=== PATIENT | male | born 1960 | race Caucasian/White ===

== ENCOUNTER → 2018-06-02 12:10 | Outpatient (CLI) | payer OTHER, SELFPAY ==
--- NOTE | 2018-06-02 | DI.US.S_ITS ---
PROCEDURE: US PERIPH VENOUS LOW EXTREM LT INDICATIONS: PAIN REDNESS AND SWELLING LEFT LEG TECHNIQUE: Real-time imaging, as well as color and pulse Doppler interrogation, were performed of the lower extremity deep veins from the inguinal ligament to the popliteal fossa. COMPARISON: None. FINDINGS: The deep veins are normally compressible, and free of intraluminal thrombus. Color and pulse Doppler demonstrate normal phasic intraluminal flow. There is normal augmentation response to distal compression maneuver. IMPRESSION: No evidence of DVT in visualized left lower extremity veins. Dictated by: Lizandro Pollard M.D. on 06/02/2018 at 14:05 Approved by: Lizandro Pollard M.D. on 06/02/2018 at 14:06
== END ==
PROVIDERS: Family Provider Family Medicine; PCP Family Medicine; Visit Provider Family Medicine
DX: M79.605 Pain in left leg (principal); M79.89 Other specified soft tissue disorders
CPT/HCPCS: 93971

== ENCOUNTER → 2018-11-18 11:49 | Outpatient (CLI) | payer OTHER, SELFPAY ==
--- NOTE | 2018-11-18 | DI.US.S_ITS ---
PROCEDURE: US ABDOMEN LIMITED INDICATIONS: HERNIA REOCCURENCE TECHNIQUE: Real-time focused scanning was performed of the abdomen, with image documentation. COMPARISON: [facility], 12/20/2015. FINDINGS: There is shadowing in the area of the left inguinal canal, which may be postsurgical change. No definitive recurrent hernia is identified within without Valsalva. IMPRESSION: No definitive evidence for recurrent hernia. There is shadowing in the area of the left inguinal canal, most likely secondary to postsurgical change. If clinical symptoms persist or clinical suspicion for pathology is high, CT is suggested for further evaluation. Dictated by: Rain Owen M.D. on 11/18/2018 at 16:08 Approved by: Rain Owen M.D. on 11/18/2018 at 16:09
== END ==
PROVIDERS: PCP Family Medicine; Visit Provider Family Medicine
DX: K46.9 Unspecified abdominal hernia without obstruction or gangrene (principal)
CPT/HCPCS: 76705

== ENCOUNTER 2019-01-26 11:46 | Inpatient (IN) | payer OTHER, SELFPAY ==
[2019-01-26] VITALS (12 sets, daily range): BP systolic 93–152; BP diastolic 63–90; PULSE 87–130; RESP 20–30; TEMP 37–37.7; O2SAT 95–100; BMI 31.1
--- NOTE | 2019-01-26 12:06 | DI.RAD.S_ITS ---
PROCEDURE: XR CHEST 1V INDICATIONS: suspected sepsis TECHNIQUE: One view of the chest was acquired. COMPARISON: [facility], , CHEST 2 VIEW, 04/13/2013, 15:44. FINDINGS: Surgical changes and devices: None. Lungs and pleura: Lungs are clear. No pleural effusions or pneumothorax. Mediastinum: Mediastinal contours appear normal. Heart size is normal. Bones and chest wall: No suspicious bony lesions. Overlying soft tissues appear unremarkable. IMPRESSION: No acute cardiopulmonary findings. Dictated by: Renetta Mancuso M.D. on 01/26/2019 at 12:54 Approved by: Renetta Mancuso M.D. on 01/26/2019 at 12:54
--- NOTE | 2019-01-26 12:06 | DI.US.S_ITS ---
PROCEDURE: US PERIP VENOUS LOW EXTREM LT INDICATIONS: SWELLING LT LOWER EXTREMITY TECHNIQUE: Real-time imaging, as well as color and pulse Doppler interrogation, were performed of the lower extremity deep veins from the inguinal ligament to the popliteal fossa. COMPARISON: [facility], , [facility] VENOUS LOW EXTREM LT, 06/02/2018, 13:13. FINDINGS: The common femoral, femoral and popliteal veins are normally compressible, and free of intraluminal thrombus. Color and pulse Doppler demonstrate normal phasic intraluminal flow. There is normal augmentation response to distal compression maneuver. There are multiple left inguinal lymph nodes, one of which demonstrates a cortical thickness of 5 mm diameter. IMPRESSION: 1. No deep vein thrombosis of the left lower extremity. 2. Mild left inguinal adenopathy. Clinical correlation recommended. Dictated by: Renetta Mancuso M.D. on 01/26/2019 at 13:01 Approved by: Renetta Mancuso M.D. on 01/26/2019 at 13:02
[2019-01-26] MEDS: SODIUM CHLORIDE 0.9% 1,000 ML 1000 ML IV (12:16)
[2019-01-26 12:31] LABS: INR 1.1 (0.9-1.3); Prothrombin Time 12.3 SECONDS (10.1-12.7)
[2019-01-26 12:33] LABS: Add Manual Diff / Slide Review NO; Basophils Absolute Auto 100 /uL (0-100); Basophils Percent Auto 0.4 % (0-2); Eosinophils Absolute Auto 0 /uL (0-450); Eosinophils Percent Auto 0.3 % (2-4); Hematocrit 39.3 % (41-53); Hemoglobin 13.2 g/dL (13.5-17.5); Lymphocytes Absolute Auto 1600 /uL (1100-4500); Lymphocytes Percent Auto 9.6 % (25-40); Mean Corpuscular HGB Conc 33.7 % (30-36); Monocytes Absolute Auto 2100 /uL (0-900); Monocytes Percent Auto 12.2 % (3-14); Neutrophils Absolute Auto 13100 /uL (1500-7000); Neutrophils Percent Auto 77.5 % (50-75); Platelet Count 247 X10^3/uL (150-400); Red Blood Cell Count 4.14 X10^6/uL (4.5-5.9); White Blood Cell Count 16.9 X10^3/uL (4.5-11.0)
[2019-01-26 12:34] LABS: PTT Partial Thromboplastin Tim 27 SECONDS (26.4-36.2)
[2019-01-26 12:36] LABS: Alanine Aminotransferase 165 IU/L (21-72); Albumin 3.9 g/dL (3.5-5.0); Alkaline Phosphatase 190 U/L (38-126); Aspartate Aminotransferase 291 IU/L (17-59); BUN Creatinine Ratio 34.7 (6-22); Bilirubin Total 0.7 mg/dL (0.2-1.3); Blood Urea Nitrogen 59 mg/dL (9-20); Calcium 9.9 mg/dL (8.4-10.2); Carbon Dioxide 21 mmol/L (22-32); Chloride 100 mmol/L (98-107); Estimated Glomerular Filt Rate 41.3 mL/min (>60); Globulin 3.9 g/dL (1.7-4.1); Glucose 134 mg/dL (80-110); HEMOLYSIS 42 (0-50); Lipase 245 U/L (23-300); Potassium 3.7 mmol/L (3.4-5.1); Sodium 137 mmol/L (137-145); Total Protein 7.8 g/dL (6.3-8.2)
[2019-01-26 12:37] LABS: Lactate (Lactic Acid) 1.9 mmol/L (0.7-2.1)
[2019-01-26 12:45] LABS: Creatine Kinase 32 U/L (55-170)
[2019-01-26 12:58] LABS: Troponin I 0.013 ng/mL (0.01-0.034)
[2019-01-26 13:01] LABS: Procalcitonin 4.81 ng/mL (<0.5)
--- NOTE | 2019-01-26 13:24 | ED.DIZZY ---
HPI - Dizziness General Chief Complaint: Dizziness Stated Complaint: Leg Swollen Lf - Dr. Macias send over Time Seen by Provider: 01/26/19 12:13 Source: patient Mode of arrival: ambulatory Limitations: no limitations History of Present Illness HPI Narrative: Patient is a 58-year-old male sent over by his primary doctor's office for evaluation of redness and swelling to his left lower extremity. Patient states this has been going on for the past several days. He states that it was a fairly sudden onset) (within several hours) of redness to his left lower extremity. States that this happened about 4 days ago. No trauma. He states that he has had a chronic area of dry skin to the inside of his left foot. Has not tried anything for symptoms prior to arrival. Initial triage stated that the patient was having some shortness of breath but upon further evaluation patient states that he just feels fatigued and that is why he is becoming short of breath. No chest pain. Related Data Home Medications Medication Instructions Recorded Confirmed Vitamins 1 dose PO DAILY 01/26/19 01/26/19 losartan 50 mg PO DAILY 01/26/19 01/26/19 Allergies Allergy/AdvReac Type Severity Reaction Status Date / Time Penicillins [PENICILLINS] Allergy Unknown uncertain Verified 01/26/19 12:16 Review of Systems Constitutional Reports chills, Reports fatigue, Denies fever(s) and Reports weakness ENT Ears, Nose, Mouth, and Throat: Denies disequilibrium Cardiovascular Denies chest pain, Denies dyspnea and Reports dyspnea on exertion (Secondary to fatigue) Respiratory Denies dyspnea and Reports dyspnea on exertion (Secondary to fatigue) Gastrointestinal Gastrointestinal: Denies abdominal pain, Denies nausea and Denies vomiting Musculoskeletal Reports myalgias (Left lower extremity), Denies arthralgias and Denies tingling Integumentary/Breasts Comments: Redness and swelling to his left lower extremity Neurologic Denies sensory deficit, Denies tingling, Denies disequilibrium and Reports weakness Endocrine Reports fatigue Hematologic/Lymphatic Denies easy bleeding and Denies easy bruising [facility] Medical History Hypertension (Acute) Social History household members: spouse Smoking Status: Former smoker Social History household members: spouse Smoking Status: Former smoker Exam Initial Vital Signs Initial Vital Signs: Vital Signs Temperature 98.6 F 01/26/19 11:50 Pulse Rate 122 H 01/26/19 11:50 Respiratory Rate 30 H 01/26/19 11:50 Blood Pressure 143/90 H 01/26/19 11:50 Pulse Oximetry 99 01/26/19 11:50 Const General: cooperative, well groomed and No acute distress Orientation: alert, awake and oriented x3 HENMT Head: normal to inspection and normocephalic Resp Effort & Inspection: normal respiratory effort Auscultation: clear to auscultation bilaterally Cardio Rate: tachycardic Rhythm: regular rhythm Pulses: radial pulses present and dorsalis pedis present bilaterally GI Inspection: non-distended Palpation: soft Neuro Cognition: normal cognition Speech: speech normal Gait: normal gait Sensory Exam: no sensory deficits noted Extrem Other: Patient with circumferential swelling to the left lower extremity from his knee to his toes. Has an area of redness on the inside of his left foot extending up to the anterior medial portion of his left lower extremity and then streaking extending up the medial aspect of his left thigh above the knee. There are no blisters in this area. Potentially some drainage. Minimal crusting. Is warm to the touch. Psych Appearance: grossly normal and well kempt Scores GCS Douglas coma scale eye opening: Spontaneous Douglas coma scale verbal response: Orientated Gertrude coma scale motor response: Obey commands Douglas coma scale total score: 15 Course Orders Ordered: ED Orders 01/26/19 12:00 Complete Blood Count AUTO DIFF Stat Comprehensive Metabolic Panel Stat Lactate (Lactic Acid) Stat Lipase Stat Partial Thromboplastin Time Stat Procalcitonin Stat Prothrombin Time INR Stat Troponin & CK Cardiac Panel Stat 01/26/19 12:06 periph venous low extrem lt Stat XR chest 1V Stat EKG-12 Lead Stat 01/26/19 12:26 Blood Culture Stat 01/26/19 14:23 Urine Culture Stat Urine Microscopic Stat 01/26/19 14:46 XR tibia fibula LT 2V Stat 01/26/19 14:55 XR femur LT min 2V Stat Discontinued Medications Sodium Chloride (Normal Saline 0.9%) 1,000 mls @ 1,000 mls/hr IV BOLUS ONE Stop: 01/26/19 13:14 Last Infusion: 01/26/19 14:16 Dose: 0 mls/hr Infusion: 01/26/19 14:15 Dose: 1,000 mls/hr Infusion: 01/26/19 12:54 Dose: 0 mls/hr Admin: 01/26/19 12:16 Dose: 1,000 mls/hr Vancomycin HCl 2,000 mg/ (Sodium Chloride) 500 mls @ 250 mls/hr IV NOW ONE Stop: 01/26/19 13:39 Last Infusion: 01/26/19 16:39 Dose: 250 mls/hr Admin: 01/26/19 14:06 Dose: 250 mls/hr Metronidazole (Flagyl) 500 mg in 100 mls @ 100 mls/hr IV NOW ONE Stop: 01/26/19 15:15 Last Admin: 01/26/19 17:07 Dose: 100 mls/hr Vital Signs - 8 hr 01/26/19 11:50 01/26/19 12:00 01/26/19 12:07 Temperature 98.6 F Pulse Rate 122 H 123 H 122 H Respiratory Rate 30 H 24 28 H Blood Pressure 143/90 H Blood Pressure [Left Arm] 115/73 115/79 Pulse Oximetry 99 99 99 01/26/19 12:18 01/26/19 12:40 01/26/19 12:52 Temperature Pulse Rate 130 H 103 H 103 H Respiratory Rate 28 H 24 Blood Pressure Blood Pressure [Left Arm] 123/78 108/66 93/69 Pulse Oximetry 98 98 01/26/19 13:00 01/26/19 14:00 Temperature Pulse Rate 98 H 87 Respiratory Rate 22 20 Blood Pressure Blood Pressure [Left Arm] 121/73 118/77 Pulse Oximetry 97 99 MDM - Dizziness Lab Data Attestation: I reviewed the patient's lab results. Result diagrams: 01/26/19 12:00 01/26/19 12:00 Lab Results 01/26/19 01/26/19 01/26/19 Range/Units 12:00 12:00 12:00 WBC 16.9 H (4.5-11.0) X10^3/uL RBC 4.14 L (4.5-5.9) X10^6/uL Hgb 13.2 L (13.5-17.5) g/dL Hct 39.3 L (41-53) % MCV 95.0 (80-100) fL MCH 32.0 (26-34) PG MCHC 33.7 (30-36) % RDW 14.0 (11.6-14.8) % Plt Count 247 (150-400) X10^3/uL Neut % (Auto) 77.5 H (50-75) % Lymph % (Auto) 9.6 L (25-40) % [facility] % (Auto) 12.2 (3-14) % Eos % (Auto) 0.3 L (2-4) % Baso % (Auto) 0.4 (0-2) % Neut # (Auto) 14185 H (9543-9739) /uL Lymph # (Auto) 1600 (9714-9707) /uL [facility] # (Auto) 2100 H (0-900) /uL Eos # (Auto) 0 (0-450) /uL Baso # (Auto) 100 (0-100) /uL PT 12.3 (10.1-12.7) SECONDS INR 1.1 (0.9-1.3) APTT 27 (26.4-36.2) SECONDS Sodium (137-145) mmol/L Potassium (3.4-5.1) mmol/L Chloride (98-107) mmol/L Carbon Dioxide (22-32) mmol/L BUN (9-20) mg/dL Creatinine (0.66-1.25) mg/dL Estimated GFR (>60) mL/min BUN/Creatinine Ratio (6-22) Glucose (80-110) mg/dL Lactate (0.7-2.1) mmol/L Calcium (8.4-10.2) mg/dL Total Bilirubin (0.2-1.3) mg/dL AST (17-59) IU/L ALT (21-72) IU/L Alkaline Phosphatase (38-126) U/L Total Creatine Kinase (55-170) U/L CK-MB (CK-2) CK-MB (CK-2) Rel Index Troponin I (0.01-0.034) ng/mL Total Protein (6.3-8.2) g/dL Albumin (3.5-5.0) g/dL Globulin (1.7-4.1) g/dL Albumin/Globulin Ratio (1.0-2.8) Lipase (23-300) U/L Procalcitonin 4.81 H (<0.5) ng/mL Urine RBC (0-5/HPF) Urine WBC (0-5/HPF) Ur Squamous Epith Cells (0-5/HPF) Urine Bacteria (None) Hyaline Casts (None) Granular Casts (None) Ur Culture Indicated? 01/26/19 01/26/19 01/26/19 Range/Units 12:00 12:00 12:00 WBC (4.5-11.0) X10^3/uL RBC (4.5-5.9) X10^6/uL Hgb (13.5-17.5) g/dL Hct (41-53) % MCV (80-100) fL MCH (26-34) PG MCHC (30-36) % RDW (11.6-14.8) % Plt Count (150-400) X10^3/uL Neut % (Auto) (50-75) % Lymph % (Auto) (25-40) % [facility] % (Auto) (3-14) % Eos % (Auto) (2-4) % Baso % (Auto) (0-2) % Neut # (Auto) (4876-2456) /uL Lymph # (Auto) (3042-6474) /uL [facility] # (Auto) (0-900) /uL Eos # (Auto) (0-450) /uL Baso # (Auto) (0-100) /uL PT (10.1-12.7) SECONDS INR (0.9-1.3) APTT (26.4-36.2) SECONDS Sodium 137 (137-145) mmol/L Potassium 3.7 (3.4-5.1) mmol/L Chloride 100 (98-107) mmol/L Carbon Dioxide 21 L (22-32) mmol/L BUN 59 H (9-20) mg/dL Creatinine 1.70 H (0.66-1.25) mg/dL Estimated GFR 41.3 L (>60) mL/min BUN/Creatinine Ratio 34.7 H (6-22) Glucose 134 H (80-110) mg/dL Lactate 1.9 (0.7-2.1) mmol/L Calcium 9.9 (8.4-10.2) mg/dL Total Bilirubin 0.7 (0.2-1.3) mg/dL AST 291 H (17-59) IU/L ALT 165 H (21-72) IU/L Alkaline Phosphatase 190 H (38-126) U/L Total Creatine Kinase 32 L (55-170) U/L CK-MB (CK-2) TNP CK-MB (CK-2) Rel Index TNP Troponin I 0.013 (0.01-0.034) ng/mL Total Protein 7.8 (6.3-8.2) g/dL Albumin 3.9 (3.5-5.0) g/dL Globulin 3.9 (1.7-4.1) g/dL Albumin/Globulin Ratio 1.0 (1.0-2.8) Lipase 245 (23-300) U/L Procalcitonin (<0.5) ng/mL Urine RBC (0-5/HPF) Urine WBC (0-5/HPF) Ur Squamous Epith Cells (0-5/HPF) Urine Bacteria (None) Hyaline Casts (None) Granular Casts (None) Ur Culture Indicated? 01/26/19 Range/Units 14:23 WBC (4.5-11.0) X10^3/uL RBC (4.5-5.9) X10^6/uL Hgb (13.5-17.5) g/dL Hct (41-53) % MCV (80-100) fL MCH (26-34) PG MCHC (30-36) % RDW (11.6-14.8) % Plt Count (150-400) X10^3/uL Neut % (Auto) (50-75) % Lymph % (Auto) (25-40) % [facility] % (Auto) (3-14) % Eos % (Auto) (2-4) % Baso % (Auto) (0-2) % Neut # (Auto) (0608-3706) /uL Lymph # (Auto) (8126-6439) /uL [facility] # (Auto) (0-900) /uL Eos # (Auto) (0-450) /uL Baso # (Auto) (0-100) /uL PT (10.1-12.7) SECONDS INR (0.9-1.3) APTT (26.4-36.2) SECONDS Sodium (137-145) mmol/L Potassium (3.4-5.1) mmol/L Chloride (98-107) mmol/L Carbon Dioxide (22-32) mmol/L BUN (9-20) mg/dL Creatinine (0.66-1.25) mg/dL Estimated GFR (>60) mL/min BUN/Creatinine Ratio (6-22) Glucose (80-110) mg/dL Lactate (0.7-2.1) mmol/L Calcium (8.4-10.2) mg/dL Total Bilirubin (0.2-1.3) mg/dL AST (17-59) IU/L ALT (21-72) IU/L Alkaline Phosphatase (38-126) U/L Total Creatine Kinase (55-170) U/L CK-MB (CK-2) CK-MB (CK-2) Rel Index Troponin I (0.01-0.034) ng/mL Total Protein (6.3-8.2) g/dL Albumin (3.5-5.0) g/dL Globulin (1.7-4.1) g/dL Albumin/Globulin Ratio (1.0-2.8) Lipase (23-300) U/L Procalcitonin (<0.5) ng/mL Urine RBC None seen (0-5/HPF) Urine WBC 1-5/hpf (0-5/HPF) Ur Squamous Epith Cells 1-5 /hpf (0-5/HPF) Urine Bacteria Many (>30) H (None) Hyaline Casts 5-10/lpf (None) Granular Casts 5-10/lpf (None) Ur Culture Indicated? Specimen cultured Urine Dip Bedside Urine Glucose Negative Bedside Urine Bilirubin ++ 2 Bedside Urine Ketone +/- 5 Urine Specific [place] 1.030 Bedside Urine Occult Blood - Negative Bedside Urine pH 5.0 Bedside Urine Protein +/- 15 Bedside Urine Urobilinogen 1+ 2mg Bedside Urine Nitrite + Positive Bedside Urine Leukocytes + 70 Esterase Imaging Data X-ray tib-fib: Radiologist's impression: [address] [address] XRay Report Signed Patient: Catrachito Peck WMR#: [id number] : 8Acct:[id number] Age/Sex: 58 / MDate of Service: 01/26/19 Loc: ED Accession Number: [id number] Procedure: XR tibia fibula LT 2V Ordering Provider: Cortez Ramírez D.O. PROCEDURE: XR TIBIA FIBULA RT 2V INDICATIONS: Cellulitis rule out free air TECHNIQUE: 2 views of the tibia and fibula were acquired. COMPARISON: None. FINDINGS: Bones: No fractures or dislocations. No suspicious bony lesions. Soft tissues: No suspicious soft tissue calcifications or masses. A small, benign-appearing soft tissue calcification is present within the medial aspect of the calf. IMPRESSION: No gas visualized within the soft tissues. No suspicious bony abnormalities. Dictated by: Renetta Mancuso M.D. on 01/26/2019 at 15:28 Approved by: Renetta Mancuso M.D. on 01/26/2019 at 15:29 X-ray femur: Radiologist's impression: [address] [address] XRay Report Signed Patient: Catrachito Peck WMR#: [id number] : 1960cct:[id number] Age/Sex: 58 / MDate of Service: 01/26/19 Loc: ED Accession Number: [id number] Procedure: XR femur LT min 2V Ordering Provider: Cortez Ramírez D.O. PROCEDURE: XR FEMUR LT MIN 2V INDICATIONS: Cellulitis eval for air TECHNIQUE: 2 views of the femur were acquired. COMPARISON: None. FINDINGS: Bones: No fractures or dislocations. No suspicious bony lesions. Soft tissues: No suspicious soft tissue calcifications or masses. Multiple surgical clips are projected over the inferior pelvis. IMPRESSION: No radiographic findings to suggest gas within the soft tissues. No underlying bony abnormalities. Dictated by: Renetta Mancuso M.D. on 01/26/2019 at 15:27 Approved by: Renetta Mancuso M.D. on 01/26/2019 at 15:28 Venous US: Radiologist's impression: [address] [address] Ultrasound Report Signed Patient: Catrachito Peck WMR#: [id number] : 8Acct:[id number] Age/Sex: 58 / MDate of Service: 01/26/19 Loc: ED Accession Number: [id number] Procedure: US periph venous low extrem lt Ordering Provider: Cortez Ramírez D.O. PROCEDURE: PERIP VENOUS LOW EXTREM LT INDICATIONS: SWELLING LT LOWER EXTREMITY TECHNIQUE: Real-time imaging, as well as color and pulse Doppler interrogation, were performed of the lower extremity deep veins from the inguinal ligament to the popliteal fossa. COMPARISON: [facility], PERIP VENOUS LOW EXTREM LT, 06/02/2018, 13:13. FINDINGS: The common femoral, femoral and popliteal veins are normally compressible, and free of intraluminal thrombus. Color and pulse Doppler demonstrate normal phasic intraluminal flow. There is normal augmentation response to distal compression maneuver. There are multiple left inguinal lymph nodes, one of which demonstrates a cortical thickness of 5 mm diameter. IMPRESSION: 1. No deep vein thrombosis of the left lower extremity. 2. Mild left inguinal adenopathy. Clinical correlation recommended. Dictated by: Renetta Mancuso M.D. on 01/26/2019 at 13:01 Approved by: Renetta Mancuso M.D. on 01/26/2019 at 13:02 ECG Data Attestation: I personally reviewed and interpreted this ECG as follows: Prior ECG tracings: not available for review Interpretation: Sinus tachycardia Ventricular rate of 121 Normal axis Normal QRS Normal QTC Nonspecific ST T wave changes MDM Narrative Medical decision making narrative: Patient is neurovascularly intact. He does have redness to his left lower extremity an elevated white blood cell count and tachycardic. This is concerning for an infection. He was never hypotensive. His heart rate did improve with just a small amount of fluid. Will hold on giving the 30 cc/kilogram of fluid. He was given antibiotics. The left lower extremity ultrasound was negative for a blood clot. I have low suspicion for pulmonary embolism given my history and physical exam. I did discuss the case with the hospitalist who recommended surgery get involved. I discussed the case with the on-call surgeon who evaluated the patient here in the emergency department. The x-rays were done to evaluate for free air for possible necrotizing fasciitis. There is no indication for this. No indication for compartment syndrome. Will continue with the admission. Discussed the admission with the patient and his who both expressed understanding and agreement. Discharge Plan Departure Patient Disposition: Admitted As Inpatient Clinical Impression: Cellulitis Qualifiers: Site of cellulitis: extremity Site of cellulitis of extremity: lower extremity Laterality: left Qualified Code(s): L03.116 - Cellulitis of left lower limb Discharge Date/Time: 01/26/19 16:41 Interventions: ED Discharge Assessment Last Done: 01/26/19 16:39 Admit Date/Time: 01/26/19 16:21 Admit Provider: Carmenza Phillips
--- NOTE | 2019-01-26 13:43 | PC.NURSE ---
Patient requested ice water so inquired from and he said ok to give some to patient
[2019-01-26] MEDS: VANCOMYCIN 2,000 MG in SODIUM CHLORIDE 0.9% 500 ML 250 ML IV (14:06)
--- NOTE | 2019-01-26 14:46 | DI.RAD.S_ITS ---
PROCEDURE: XR TIBIA FIBULA RT 2V INDICATIONS: Cellulitis rule out free air TECHNIQUE: 2 views of the tibia and fibula were acquired. COMPARISON: None. FINDINGS: Bones: No fractures or dislocations. No suspicious bony lesions. Soft tissues: No suspicious soft tissue calcifications or masses. A small, benign-appearing soft tissue calcification is present within the medial aspect of the calf. IMPRESSION: No gas visualized within the soft tissues. No suspicious bony abnormalities. Dictated by: Renetta Mancuso M.D. on 01/26/2019 at 15:28 Approved by: Renetta Mancuso M.D. on 01/26/2019 at 15:29
--- NOTE | 2019-01-26 14:55 | DI.RAD.S_ITS ---
PROCEDURE: XR FEMUR LT MIN 2V INDICATIONS: Cellulitis eval for air TECHNIQUE: 2 views of the femur were acquired. COMPARISON: None. FINDINGS: Bones: No fractures or dislocations. No suspicious bony lesions. Soft tissues: No suspicious soft tissue calcifications or masses. Multiple surgical clips are projected over the inferior pelvis. IMPRESSION: No radiographic findings to suggest gas within the soft tissues. No underlying bony abnormalities. Dictated by: Renetta Mancuso M.D. on 01/26/2019 at 15:27 Approved by: Renetta Mancuso M.D. on 01/26/2019 at 15:28
[2019-01-26 17:03] LABS: RBC Urine None Seen (0-5/HPF)
[2019-01-26] MEDS: metroNIDAZOLE 500 MG/100 ML PIGGYBACK 100 MG IV ×2 (17:07→22:30)
[2019-01-26 17:33] LABS: Bacteria Urine Many (>30); Granular Casts Urine 5-10/LPF; Hyaline Casts Urine 5-10/LPF; Squamous Epithelial Cell Urine 1-5 /HPF (0-5/HPF); WBC Urine 1-5/HPF (0-5/HPF)
[2019-01-26 17:34] LABS: Culture Indicated Urine Specimen Cultured
[2019-01-26] MEDS: ACETAMINOPHEN 325 MG TABLET 650 MG PO (22:00)
[2019-01-27] VITALS (11 sets, daily range): BP systolic 119–144; BP diastolic 66–85; PULSE 103–111; RESP 16–22; TEMP 37.1–37.5; O2SAT 95–100
--- NOTE | 2019-01-27 02:23 | P.HP_ITS ---
History of Present Illness Date Patient Seen: 01/27/19 Time Patient Seen: 02:20 Chief complaint: Leg Swollen Lf - Dr. Macias send over Narrative: The patient is a 58-year-old male w/ PMHx of HTN, prostate cancer, obesity and prior RLE foot ulcer. Presented to the ED on 01/26/19 per recommendation of his PCP, Dori Macias, out of concern for cellulitis. Patient reports sudden onset of left lower extremity redness, edema, erythema, calor, induration, and tenderness. There is drainage. Symptoms initially noted on evening (01/22/2019), progressively worsening over the next 3 days. Associated symptoms include chills and generalized malaise. Patient reports history of left lower extremity ulcer in the medial aspect of left heel one year ago. It has taken for the ulcer 3-4 months to heal, treated with topical antibiotics. Since the ulcer has healed patient has had some degree of inflammation and occasionally purulence, but no prior history of cellulitis or recurrence of the ulcer. Denies trauma or any other activity that may have caused an injury or break to the skin. Prior LLE ulcer. Patient works at a [employer]. Endorses exposure to stool pellets. Denies overt penetrating trauma or retained foreign body. Denies skin conditions such as eczema. No known gout or arthritis flare. No history of prior strep, staph, or other soft tissue infections. No known diabetes or prior radiation therapy. No reported insect bites. Patient History Medical History History of prostate cancer (Chronic) Hypertension (Chronic) Surgical History History of left inguinal hernia repair (Chronic) History of umbilical hernia repair (Chronic) Social History household members: spouse Smoking Status: Former smoker Family & Social History Family History (Updated 01/27/19 @ 03:35 by OSCAR Cadena) Mother No known health problems Father No known health problems Social History: household members spouse Prior Living Arrangements House Safety & Behavioral: Feels Safe in Current Yes Environment Been Physically Hurt or No Threatened By a Person Tobacco & Substance use: Smoking Status Former smoker alcohol intake frequency Endorses 3 or more drinks per day, denies have a history of EtOH use Substance Use Type Denies use. Meds Home Medications Medication Instructions Recorded Confirmed Type Vitamins 1 dose PO DAILY 01/26/19 01/26/19 History losartan 50 mg PO DAILY 01/26/19 01/26/19 History Allergies Allergy/AdvReac Type Severity Reaction Status Date / Time Penicillins [PENICILLINS] Allergy Unknown uncertain Verified 01/26/19 12:16 Review of Systems Review of Systems All systems reviewed & are unremarkable except as noted in HPI and below Exam Vital Signs (past 8 hours): - 01/26/19 20:41 01/26/19 22:48 01/26/19 23:50 Temperature 99.8 F H Pulse Rate 107 H Respiratory Rate 22 Blood Pressure 123/63 Pulse Oximetry 95 97 97 01/27/19 00:20 Temperature 99.2 F Pulse Rate 105 H Respiratory Rate 19 Blood Pressure 137/85 Pulse Oximetry 97 Oxygen Delivery Method Room Air Oxygen Flow Rate 0 Narrative Exam Narrative: Constitutional: Mild distress, reports left lower extremity pain Neurologic: AOx3, no focal neurological deficits Head: NC, AT Eyes: PERRL, EOMI, Ears: external ears normal, no otorrhea Nose: external nose normal, no rhinorrhea or epistaxis Throat: MMM, oropharynx w/o exudate Neck: no masses, lymphadenopathy, or JVD Chest / Respiratory: equal chest rise, unlabored respiratory effort, no dyspnea or tachypnea, CTAB Heart / CV: S1S2, no murmur Abdomen / GI: round, moderately distended and firm, non-tender : no suprapubic tenderness, no CVA Peripheral / Vascular: RLE - warm to touch, no edema or erythema, sensation intact, no tenderness to palpation, DP and PT pulses palpable LLE -demarcated circumferential area of edema, erythema, induration, calor, and tenderness (below knees to heel and partial aspect of foot) demarcated border margins of involved are distinct, linear streak extending from site of infection to left inner thigh noted, mid-calf break in skin w/ purulence superficial cutaneous edema at the posterior aspect of the calf and localized area in the inner aspect of thigh, slightly above the knee Does not appear to have toe nail deformities or infection. Pedal and posterior pulses palpable Musc: full ROM of upper and lower extremities, strength equal Skin: see peripheral vascular section Objective Labs Result Diagrams: 01/26/19 12:00 01/26/19 12:00 Labs: Laboratory Results - last 24 hr 01/26/19 01/26/19 01/26/19 12:00 12:00 12:00 WBC 16.9 H RBC 4.14 L Hgb 13.2 L Hct 39.3 L MCV 95.0 MCH 32.0 MCHC 33.7 RDW 14.0 Plt Count 247 Neut % (Auto) 77.5 H Lymph % (Auto) 9.6 L [place] % (Auto) 12.2 Eos % (Auto) 0.3 L Baso % (Auto) 0.4 Neut # (Auto) 91692 H Lymph # (Auto) 1600 [place] # (Auto) 2100 H Eos # (Auto) 0 Baso # (Auto) 100 PT 12.3 INR 1.1 APTT 27 Sodium Potassium Chloride Carbon Dioxide BUN Creatinine Estimated GFR BUN/Creatinine Ratio Glucose Lactate Calcium Total Bilirubin AST ALT Alkaline Phosphatase Total Creatine Kinase CK-MB (CK-2) CK-MB (CK-2) Rel Index Troponin I Total Protein Albumin Globulin Albumin/Globulin Ratio Lipase Procalcitonin 4.81 H Urine RBC Urine WBC Ur Squamous Epith Cells Urine Bacteria Hyaline Casts Granular Casts Ur Culture Indicated? 01/26/19 01/26/19 01/26/19 12:00 12:00 12:00 WBC RBC Hgb Hct MCV MCH MCHC RDW Plt Count Neut % (Auto) Lymph % (Auto) [place] % (Auto) Eos % (Auto) Baso % (Auto) Neut # (Auto) Lymph # (Auto) [place] # (Auto) Eos # (Auto) Baso # (Auto) PT INR APTT Sodium 137 Potassium 3.7 Chloride 100 Carbon Dioxide 21 L BUN 59 H Creatinine 1.70 H Estimated GFR 41.3 L BUN/Creatinine Ratio 34.7 H Glucose 134 H Lactate 1.9 Calcium 9.9 Total Bilirubin 0.7 AST 291 H ALT 165 H Alkaline Phosphatase 190 H Total Creatine Kinase 32 L CK-MB (CK-2) TNP CK-MB (CK-2) Rel Index TNP Troponin I 0.013 Total Protein 7.8 Albumin 3.9 Globulin 3.9 Albumin/Globulin Ratio 1.0 Lipase 245 Procalcitonin Urine RBC Urine WBC Ur Squamous Epith Cells Urine Bacteria Hyaline Casts Granular Casts Ur Culture Indicated? 01/26/19 14:23 WBC RBC Hgb Hct MCV MCH MCHC RDW Plt Count Neut % (Auto) Lymph % (Auto) [place] % (Auto) Eos % (Auto) Baso % (Auto) Neut # (Auto) Lymph # (Auto) [place] # (Auto) Eos # (Auto) Baso # (Auto) PT INR APTT Sodium Potassium Chloride Carbon Dioxide BUN Creatinine Estimated GFR BUN/Creatinine Ratio Glucose Lactate Calcium Total Bilirubin AST ALT Alkaline Phosphatase Total Creatine Kinase CK-MB (CK-2) CK-MB (CK-2) Rel Index Troponin I Total Protein Albumin Globulin Albumin/Globulin Ratio Lipase Procalcitonin Urine RBC None seen Urine WBC 1-5/hpf Ur Squamous Epith Cells 1-5 /hpf Urine Bacteria Many (>30) H Hyaline Casts 5-10/lpf Granular Casts 5-10/lpf Ur Culture Indicated? Specimen cultured Assessment & Plan Assessment & Plan narrative: Left lower extremity cellulitis, acute, present on admission, active - LLE U/S unremarkable for DVT. - CXR demonstrates no acute cardiopulmonary findings. - left tibia-fIbula XR unremarkable for fractures, dislocations, or suspicious bony lesions. No gas visualized within the soft tissues. - left femur XR, unremarkable for gas within the soft tissues or other abnormalities - Blood culture pending - Wound culture - Empiric therapy with vancomycin and Flagyl - Supportive care, elevate extremity Sepsis, acute, present on admission, active On presentation tachypneic and tachycardic. Initial labs remarkable for leukocytosis (WBC 16.9), PCT (4.81), and JULIAN. In the ED received 1 L NS bolus, at that point there was improvement in heart rate with no further IV fluids. - Start NS at 75 ml/hr - Cxr unrevealing of acute cardiopulmonary findings; urinalysis + urine bacteria, no WBC's (pt asymptopmatic, no need for cx) - Wound cx - Empiric therapy with vancomycin and Flagyl - CBC and PCT in am 01/27/19 Acute pain, present on admission, active - secondary to wound infection - tylenol 650 mg Q6H prn pain and tramadol 50 mg Q8H prn pain Hypovolemia, acute, present on admission, active Suspected to be in the setting of hypermetabolic state - IV fluids - CMP in am 01/27/19 Kidney Injury, acute, present on admission, active Baseline renal function is unknown, acute vs acute-on chronic, occurring in the setting of hypovolemia, metabolic acidosis, and infection - IV fluids - Trend renal function with a.m. labs - Avoid nephrotoxin agents, renally dose medications, optimize renal perfusion Abnormal (elevated) liver enzymes, acute, present on admission, active Patient has a history moderate EtOH use. There is degree of abdominal distension and potentially underlying cirrhosis. No abdominal pain. Patient denies history of liver disease. - AST 291 ALT 165 Alk Phos 190 Lipase 290 -trend liver enzymes, LFTs Essential hypertension, chronic condition, present on admission, active/stable - PT on losartan. BP stable. Will monitor BP and patient condition closely. Patient meets sepsis criteria and at present time is at risk for hemodynamic decompensation. BP in adequate range, need to optimize renal perfusion to improve suspected JULIAN
[2019-01-27] MEDS: TRAMADOL 50 MG TABLET PO (02:28)
[2019-01-27] MEDS: metroNIDAZOLE 500 MG/100 ML PIGGYBACK 100 MG IV ×4 (04:35→22:14)
[2019-01-27] MEDS: VANCOMYCIN 1,000 MG/200 ML FROZ.PIGGY 200 MG IV ×2 (05:48→21:01)
[2019-01-27] MEDS: SODIUM CHLORIDE 0.9% 1,000 ML 75 ML IV ×2 (05:48→22:13)
[2019-01-27] MEDS: HYDROCODONE/ACET 5/325 TABLET 1 TAB PO ×4 (08:37→20:56)
[2019-01-27] MEDS: HEPARIN 5,000 UNIT/ML VIAL 5000 UNIT SUBCUT ×2 (08:37→20:57)
[2019-01-27 09:07] LABS: Add Manual Diff / Slide Review NO; Basophils Absolute Auto 100 /uL (0-100); Basophils Percent Auto 0.4 % (0-2); Eosinophils Absolute Auto 100 /uL (0-450); Eosinophils Percent Auto 0.9 % (2-4); Hematocrit 29.2 % (41-53); Lymphocytes Absolute Auto 1400 /uL (1100-4500); Lymphocytes Percent Auto 10.8 % (25-40); Mean Corpuscular HGB Conc 34.1 % (30-36); Mean Corpuscular Hemoglobin 32.5 PG (26-34); Mean Corpuscular Volume 95.1 fL (80-100); Monocytes Absolute Auto 1600 /uL (0-900); Monocytes Percent Auto 12.4 % (3-14); Neutrophils Absolute Auto 9900 /uL (1500-7000); Neutrophils Percent Auto 75.5 % (50-75); Platelet Count 243 X10^3/uL (150-400); Red Blood Cell Count 3.07 X10^6/uL (4.5-5.9); Red Cell Distribution Width 13.8 % (11.6-14.8); White Blood Cell Count 13.2 X10^3/uL (4.5-11.0)
[2019-01-27 09:28] LABS: Alanine Aminotransferase 123 IU/L (21-72); Albumin 3.1 g/dL (3.5-5.0); Alkaline Phosphatase 147 U/L (38-126); Aspartate Aminotransferase 150 IU/L (17-59); BUN Creatinine Ratio 44.4 (6-22); Bilirubin Total 0.4 mg/dL (0.2-1.3); Blood Urea Nitrogen 40 mg/dL (9-20); Calcium 8.9 mg/dL (8.4-10.2); Carbon Dioxide 23 mmol/L (22-32); Estimated Glomerular Filt Rate > 60.0 mL/min (>60); Globulin 3.1 g/dL (1.7-4.1); Glucose 111 mg/dL (80-110); HEMOLYSIS < 15 (0-50); Total Protein 6.2 g/dL (6.3-8.2)
[2019-01-27 09:45] LABS: Chloride 102 mmol/L (98-107); Potassium 3.7 mmol/L (3.4-5.1); Sodium 135 mmol/L (137-145)
--- NOTE | 2019-01-27 10:01 | CM.DANOTE ---
DCP: Case received, EMR reviewed and met with patient. Introduced self and role. Information regarding patient's baseline information retrieved by him. DCP template completed with information currently available. Patient is a 58 year old male who admitted yesterday afternoon to the care of the hospitalist team. PCP: Dr. Macias. Payer: confirmed: [facility]. Patient came to hospital via family vehicle. Patient works at [employer], and Dr. Macias is the physician for the company. She had advised that he come over here secondary to swelling and redness to his left leg. Patient is a full code, has history of prostate cancer. Has no history of Diabetes. Patient holds diagnosis of cellulitis/sepsis. He is independent, lives with his , Nanda. Patient does have history of having 3 alcoholic drinks a day, but denies ETOH. p: DCP to follow closely as plan unfolds. Anticipate that patient will be here for a few days secondary to antibiotic therapy. Lea Castaneda RN/Imaging Account Manager
[2019-01-27 10:27] LABS: Procalcitonin 1.39 ng/mL (<0.5)
--- NOTE | 2019-01-27 15:54 | PM.PN.1 ---
Subjective Date Patient Seen: 01/27/19 Exam Vital Signs (past 8 hours): - 01/28/19 11:00 01/28/19 12:30 01/28/19 12:45 Temperature 99.5 F 99.1 F Pulse Rate 123 H 124 H Respiratory Rate 16 24 24 Blood Pressure 105/73 122/77 131/80 Pulse Oximetry 98 100 01/28/19 12:55 01/28/19 13:10 01/28/19 13:30 Temperature 100.0 F H Pulse Rate 130 H 123 H Respiratory Rate 24 24 28 H Blood Pressure 122/86 106/79 131/76 Pulse Oximetry 99 97 96 01/28/19 14:02 01/28/19 14:10 01/28/19 14:16 Temperature 100.0 F H 101.1 F H Pulse Rate 120 H 119 H Respiratory Rate 16 16 Blood Pressure 144/79 H 111/71 Pulse Oximetry 99 01/28/19 14:40 01/28/19 16:01 01/28/19 16:06 Temperature 100.8 F H 100.8 F H Pulse Rate 116 H 118 H 124 H Respiratory Rate 20 20 20 Blood Pressure 124/72 164/80 H 142/84 H Pulse Oximetry 97 01/28/19 16:35 01/28/19 16:40 01/28/19 16:45 Temperature 100.3 F H Pulse Rate 112 H 112 H 113 H Respiratory Rate 32 H 25 H 32 H Blood Pressure 135/86 132/83 138/76 Pulse Oximetry 92 95 98 01/28/19 16:50 01/28/19 16:55 01/28/19 17:05 Temperature 98.9 F Pulse Rate 111 H 112 H 112 H Respiratory Rate 21 35 H 35 H Blood Pressure 139/77 115/78 133/78 Pulse Oximetry 97 95 96 01/28/19 17:35 01/28/19 18:05 Temperature 99.2 F 98.9 F Pulse Rate 123 H 118 H Respiratory Rate 30 H 26 H Blood Pressure 119/78 112/77 Pulse Oximetry 96 95 Oxygen Delivery Method Room Air Oxygen Flow Rate 2 Objective Labs Result Diagrams: 01/28/19 12:06 01/28/19 06:00 Labs: Laboratory Results - last 24 hr 01/27/19 01/27/19 01/28/19 17:00 21:32 06:00 WBC 15.1 H RBC 2.46 L Hgb 7.9 L Hct 23.7 L MCV 96.2 MCH 32.0 MCHC 33.2 RDW 14.3 Plt Count 281 Neut % (Auto) 73.1 Lymph % (Auto) 13.0 L [place] % (Auto) 12.7 Eos % (Auto) 0.6 L Baso % (Auto) 0.6 Neut # (Auto) 22612 H Lymph # (Auto) 2000 [place] # (Auto) 1900 H Eos # (Auto) 100 Baso # (Auto) 100 Sodium Potassium Chloride Carbon Dioxide BUN Creatinine Estimated GFR BUN/Creatinine Ratio Glucose Calcium Magnesium Total Bilirubin AST ALT Alkaline Phosphatase Total Protein Albumin Globulin Albumin/Globulin Ratio Procalcitonin Nasal Screen MRSA (PCR) Negative for mrsa Vancomycin Trough 20.1 H Blood Type Antibody Screen Crossmatch 01/28/19 01/28/19 01/28/19 06:00 06:00 12:06 WBC RBC Hgb 6.8 L* Hct 20.7 L* MCV MCH MCHC RDW Plt Count Neut % (Auto) Lymph % (Auto) [place] % (Auto) Eos % (Auto) Baso % (Auto) Neut # (Auto) Lymph # (Auto) [place] # (Auto) Eos # (Auto) Baso # (Auto) Sodium 136 L Potassium 3.8 Chloride 104 Carbon Dioxide 23 BUN 30 H Creatinine 0.90 Estimated GFR > 60.0 BUN/Creatinine Ratio 33.3 H Glucose 122 H Calcium 8.0 L Magnesium 1.9 Total Bilirubin 0.2 AST 105 H ALT 100 H Alkaline Phosphatase 121 Total Protein 5.1 L Albumin 2.5 L Globulin 2.6 Albumin/Globulin Ratio 1.0 Procalcitonin 0.78 H Nasal Screen MRSA (PCR) Vancomycin Trough Blood Type Antibody Screen Crossmatch 01/28/19 12:06 WBC RBC Hgb Hct MCV MCH MCHC RDW Plt Count Neut % (Auto) Lymph % (Auto) [place] % (Auto) Eos % (Auto) Baso % (Auto) Neut # (Auto) Lymph # (Auto) [place] # (Auto) Eos # (Auto) Baso # (Auto) Sodium Potassium Chloride Carbon Dioxide BUN Creatinine Estimated GFR BUN/Creatinine Ratio Glucose Calcium Magnesium Total Bilirubin AST ALT Alkaline Phosphatase Total Protein Albumin Globulin Albumin/Globulin Ratio Procalcitonin Nasal Screen MRSA (PCR) Vancomycin Trough Blood Type O Positive Antibody Screen Negative Crossmatch See Detail Assessment & Plan Assessment & Plan narrative: Brief progress note: Patient seen and examined. Patient hemodynamically stable. Assessment and plan unchanged other than ordered MRSA swab and started hydrocodone as needed for pain.
[2019-01-27 22:34] LABS: Vancomycin Trough 20.1 ug/mL (10-20)
[2019-01-28] VITALS (29 sets, daily range): BP systolic 105–164; BP diastolic 71–92; PULSE 88–130; RESP 16–35; TEMP 31.6–38.4; O2SAT 92–100
[2019-01-28] MEDS: HYDROCODONE/ACET 5/325 TABLET 1 TAB PO ×2 (01:00→05:59)
--- NOTE | 2019-01-28 01:05 | PC.NURSE ---
Supervisor Of Way Note: 0045: Awake, watching TV. Vital signs stable. IV in place in lt forearm with NS infusing at 75cc/hr. Lt leg is elevated on pillows, and redness is receeding from dotted lines; large blister noted on inner ankle region. 0100: Pt states he is having 4/10 pain, and would like pain medication. Medicated with 1 Vicodin.
[2019-01-28] MEDS: metroNIDAZOLE 500 MG/100 ML PIGGYBACK 100 MG IV ×4 (05:14→23:13)
[2019-01-28 06:19] LABS: Add Manual Diff / Slide Review NO; Basophils Absolute Auto 100 /uL (0-100); Basophils Percent Auto 0.6 % (0-2); Eosinophils Absolute Auto 100 /uL (0-450); Eosinophils Percent Auto 0.6 % (2-4); Hemoglobin 7.9 g/dL (13.5-17.5); Lymphocytes Absolute Auto 2000 /uL (1100-4500); Mean Corpuscular HGB Conc 33.2 % (30-36); Mean Corpuscular Volume 96.2 fL (80-100); Monocytes Absolute Auto 1900 /uL (0-900); Monocytes Percent Auto 12.7 % (3-14); Neutrophils Absolute Auto 11000 /uL (1500-7000); Neutrophils Percent Auto 73.1 % (50-75); Platelet Count 281 X10^3/uL (150-400); Red Blood Cell Count 2.46 X10^6/uL (4.5-5.9); Red Cell Distribution Width 14.3 % (11.6-14.8); White Blood Cell Count 15.1 X10^3/uL (4.5-11.0)
[2019-01-28 06:36] LABS: Alanine Aminotransferase 100 IU/L (21-72); Albumin 2.5 g/dL (3.5-5.0); Alkaline Phosphatase 121 U/L (38-126); Aspartate Aminotransferase 105 IU/L (17-59); BUN Creatinine Ratio 33.3 (6-22); Bilirubin Total 0.2 mg/dL (0.2-1.3); Blood Urea Nitrogen 30 mg/dL (9-20); Carbon Dioxide 23 mmol/L (22-32); Chloride 104 mmol/L (98-107); Estimated Glomerular Filt Rate > 60.0 mL/min (>60); Globulin 2.6 g/dL (1.7-4.1); Glucose 122 mg/dL (80-110); HEMOLYSIS < 15 (0-50); Magnesium 1.9 mg/dL (1.6-2.3); Potassium 3.8 mmol/L (3.4-5.1); Sodium 136 mmol/L (137-145); Total Protein 5.1 g/dL (6.3-8.2)
[2019-01-28 06:44] LABS: Hematocrit 23.7 % (41-53)
[2019-01-28 07:30] LABS: Procalcitonin 0.78 ng/mL (<0.5)
[2019-01-28] MEDS: HEPARIN 5,000 UNIT/ML VIAL 5000 UNIT SUBCUT (09:34)
--- NOTE | 2019-01-28 11:14 | PC.NURSE ---
1010 Pt has had 2 BMs this am, black,tarry, odor noted. Pt c/o feeling weak/dizzy, skin color pale. Pt resting in bed now. Dr Phillips notified of H&H results and of pt being tachy, guiac grossly Positive. Pt on tele, has been tachy 101-145 all this am as well. 1015 Pt is now NPO, plan a EGD possibly today per Dr Phillips. redraw of lab at noon, dcd IVF.
[2019-01-28] MEDS: PANTOPRAZOLE 80 MG in SODIUM CHLORIDE 0.9% 100 ML 10 ML IV (11:35)
--- NOTE | 2019-01-28 12:07 | PM.CN ---
History of Present Illness Date Patient Seen: 01/28/19 Time Patient Seen: 12:07 Chief complaint: Leg Swollen - Dr. Macias send over Reason for consult: GI bleeding Narrative: Patient has been hospitalized for about 36 hours with left leg cellulitis on intravenous antibiotic therapy. He has also been on DVT prophylaxis with heparin. Today's had several melena stools. Actually had 1 yesterday as well. hemoglobin has fallen significantly. On admission it was 10 and now it is 7-1/2. Patient has no abdominal pain. no history of prior ulcer disease. [facility] Medical History History of prostate cancer (Chronic) Hypertension (Chronic) Surgical History History of left inguinal hernia repair (Chronic) History of umbilical hernia repair (Chronic) Social History household members: spouse Smoking Status: Former smoker Family History (Updated 01/27/19 @ 03:35 by OSCAR Cadena) Mother No known health problems Father No known health problems Social History household members: spouse Smoking Status: Former smoker Meds Home Medications Medication Instructions Recorded Confirmed Type Vitamins 1 dose PO DAILY 01/26/19 01/26/19 History losartan 50 mg PO DAILY 01/26/19 01/26/19 History Allergies Allergy/AdvReac Type Severity Reaction Status Date / Time Penicillins [PENICILLINS] Allergy Unknown uncertain Verified 01/26/19 12:16 Review of Systems Review of Systems All systems reviewed & are unremarkable except as noted in HPI and below Exam Vital Signs (past 8 hours): - 01/28/19 07:55 01/28/19 11:00 Temperature 98.6 F 99.5 F Pulse Rate 119 H 123 H Respiratory Rate 16 16 Blood Pressure 127/76 105/73 Pulse Oximetry 97 98 Oxygen Delivery Method Room Air Oxygen Flow Rate 0 Narrative Exam Narrative: Patient has tachycardia with a heart rate 120 blood pressure is 120 over 70. Patient is alert and oriented. Patient denies any pain. Abdomen is soft and nontender. No abdominal masses. Objective Labs Result Diagrams: 01/28/19 06:00 01/28/19 06:00 Labs: Laboratory Results - last 24 hr 01/27/19 01/27/19 01/28/19 17:00 21:32 06:00 WBC 15.1 H RBC 2.46 L Hgb 7.9 L Hct 23.7 L MCV 96.2 MCH 32.0 MCHC 33.2 RDW 14.3 Plt Count 281 Neut % (Auto) 73.1 Lymph % (Auto) 13.0 L [place] % (Auto) 12.7 Eos % (Auto) 0.6 L Baso % (Auto) 0.6 Neut # (Auto) 10702 H Lymph # (Auto) 2000 [place] # (Auto) 1900 H Eos # (Auto) 100 Baso # (Auto) 100 Sodium Potassium Chloride Carbon Dioxide BUN Creatinine Estimated GFR BUN/Creatinine Ratio Glucose Calcium Magnesium Total Bilirubin AST ALT Alkaline Phosphatase Total Protein Albumin Globulin Albumin/Globulin Ratio Procalcitonin Nasal Screen MRSA (PCR) Negative for mrsa Vancomycin Trough 20.1 H 01/28/19 01/28/19 06:00 06:00 WBC RBC Hgb Hct MCV MCH MCHC RDW Plt Count Neut % (Auto) Lymph % (Auto) [place] % (Auto) Eos % (Auto) Baso % (Auto) Neut # (Auto) Lymph # (Auto) [place] # (Auto) Eos # (Auto) Baso # (Auto) Sodium 136 L Potassium 3.8 Chloride 104 Carbon Dioxide 23 BUN 30 H Creatinine 0.90 Estimated GFR > 60.0 BUN/Creatinine Ratio 33.3 H Glucose 122 H Calcium 8.0 L Magnesium 1.9 Total Bilirubin 0.2 AST 105 H ALT 100 H Alkaline Phosphatase 121 Total Protein 5.1 L Albumin 2.5 L Globulin 2.6 Albumin/Globulin Ratio 1.0 Procalcitonin 0.78 H Nasal Screen MRSA (PCR) Vancomycin Trough Assessment & Plan Assessment & Plan narrative: Patient admitted with left leg cellulitis on IV antibiotics and heparin for DVT prophylaxis. No prior history of ulcer disease. Patient has had several melanotic stools. Has a significant drop in his hemoglobin. I will do EGD for him today. He is now on a Protonix drip and his heparin has been stopped.
[2019-01-28 12:22] LABS: Hematocrit 20.7 % (41-53); Hemoglobin 6.8 g/dL (13.5-17.5)
--- NOTE | 2019-01-28 13:36 | PC.NURSE ---
1330 Pt resting in bed. Awaiting the blood to transfuse. Pt has been up to bs to void and had bloody, watery BM as well. Pt VS remain stable. Plan for EGD at approx 1700. Protonix drip infusing.
[2019-01-28] MEDS: VANCOMYCIN 1,000 MG/200 ML FROZ.PIGGY 200 MG IV (15:17)
--- NOTE | 2019-01-28 16:13 | SUR.HOLD ---
1606 Retook BP after patient had a few minutes to rest after returning from the bathroom. VS within his normal paremeters. No SOB\dyspnea, diaphoresis, temperature improved from pre-transfusion, no chest pain or N&V or other symptoms/changes as listed in the policy.Pt. taken to endo immediately after ambulating to the bathroom. Endo RNs monitoring pt.
[2019-01-28] MEDS: LIDOCAINE 4% SOLN 50 ML 20 ML TOP (16:20)
[2019-01-28] MEDS: MIDAZOLAM 5 MG/5 ML VIAL IV (16:21)
[2019-01-28] MEDS: TETRACAINE/BENZOCAINE/BUTAMBEN (CETACAINE) BOTTLE 1 SPRAY TOP (16:21)
[2019-01-28] MEDS: fentaNYL 250 MCG/5 ML INJ IV (16:22)
[2019-01-28] MEDS: EPINEPHrine 1 MG/10 ML SYRINGE IV (16:23)
[2019-01-28] MEDS: SODIUM CHLORIDE 0.9% FLUSH 10 ML IV (16:24)
--- NOTE | 2019-01-28 16:30 | PM.OP.ENDO ---
Operative Date/Time/Diagnoses Date of procedure: 01/28/19 Time of procedure: 16:30 Pre-op diagnosis: Upper GI bleeding secondary to duodenal ulcer Post-op diagnosis: same Procedure & Clinicians Study performed: Esophagogastroduodenoscopy epinephrine injection into base of duodenal ulcer Same procedure as scheduled: Yes Indications: Patient in the hospital for treatment of leg cellulitis developed upper GI bleeding with profound melanotic stools dropped his hemoglobin down to 6.8. Surgeon: Leon Diallo Procedure Notes SCOAP/Timeout: None Procedure in detail: Patient is properly identified during surgical pause receiving his 2nd unit of packed cells. He was given topical pharyngeal Cetacaine spray. Conscious sedation utilizing 6 mg of Versed and 50 mg of fentanyl was administered throughout the procedure. flexible fiberoptic gastroscope inserted transorally from the hypopharynx into the 2nd portion of the duodenum. The esophagus is normal. On retroflex sing the scope there is no evidence of Kathleen-Kamara tear. There is old blood in the stomach without active bleeding. duodenal bulb was entered and there is a large ulceration there which was not bleeding but I think is the cause of his upper GI bleed I passed the scope down into the 2nd portion of the duodenum where there is fresh bile encountered and no active bleeding. I injected the base of the ulcer with 3 separate injections 1 cc each of [id number] epinephrine. This was well tolerated without changing his heart rate. The scope was retrieved without difficulty he tolerated the procedure well. Scope withdrawal time: 15 Sedation minutes: 20 Findings: duodenal ulcer Specimen(s): none sent Complications: none Impression: Upper GI bleed secondary to duodenal ulcer was treated with epinephrine injection. Disposition: PACU
--- NOTE | 2019-01-28 16:35 | P.OP.ENDO_ITS ---
Operative Date/Time/Diagnoses Date of procedure: 01/28/19 Time of procedure: 16:30 Pre-op diagnosis: Upper GI bleeding secondary to duodenal ulcer Post-op diagnosis: same Procedure & Clinicians Study performed: Esophagogastroduodenoscopy epinephrine injection into base of duodenal ulcer Same procedure as scheduled: Yes Indications: Patient in the hospital for treatment of leg cellulitis developed upper GI bleeding with profound melanotic stools dropped his hemoglobin down to 6.8. Surgeon: Leon Diallo Procedure Notes SCOAP/Timeout: None Procedure in detail: Patient is properly identified during surgical pause rec eiving his 2nd unit of packed cells. He was given topical pharyngeal Cetacaine spray. Conscious sedation utilizing 6 mg of Versed and 50 mg of fentanyl was administered throughout the procedure. flexible fiberoptic gastroscope inserted transorally from the hypopharynx into the 2nd portion of the duodenum. The esophagus is normal. On retroflex sing the scope there is no evidence of Kathleen-Kamara tear. There is old blood in the stomach without active bleeding. duodenal bulb was entered and there is a large ulceration there which was not bleeding but I think is the cause of his upper GI bleed I passed the scope down into the 2nd portion of the duodenum where there is fresh bile encountered and no active bleeding. I injected the base of the ulcer with 3 separate injections 1 cc each of [id number] epinephrine. This was well tolerated without changing his heart rate. The scope was retrieved without difficulty he tolerated the procedure well. Scope withdrawal time: 15 Sedation minutes: 20 Findings: duodenal ulcer Specimen(s): none sent Complications: none Impression: Upper GI bleed secondary to duodenal ulcer was treated with epinephrine injection. Disposition: PACU
--- NOTE | 2019-01-28 16:43 | SUR.PHASEI ---
Patient denies that he feels any different than he did pre-op other than drowsy. Denies pain. Dr. Diallo speaking to patient.
--- NOTE | 2019-01-28 16:57 | SUR.HOLD ---
Patient slightly short of breath, states that he feels that this is his normal. Lungs clear.
--- NOTE | 2019-01-28 16:58 | SUR.HOLD ---
Tolerated PO well. As compared to when he came down, he stated, I don't ache anymore.
--- NOTE | 2019-01-28 17:08 | SUR.PHASEI ---
1659 To room 209. at bedside, bed down and locked, call light within reach. RN present to insert PICC line, report given. Tolerating PO well,
--- NOTE | 2019-01-28 17:16 | SUR.PHASEI ---
1714 Spoke with coordinator regarding VS and infusion of second unit of blood. She will update AC RN.
--- NOTE | 2019-01-28 17:28 | PC.NURSE ---
Wound Nurse Consult Note Mr. Peck in bed with his left leg up on two pillows. He states that he noticed blisters in his ankle, pointing to his medial ankle for some time and that Dr. Macias had been taking care of them and feels this is how he got his leg infection. His leg is edematous, hot to touch and red. The erythema has been marked with a black marker. The erythema is in his lower leg and goes up his inner thigh. There are a few serous filled blister that have popped and are draining serous fluid. His leg is on a chux. I would recommend an abd pad held in place with a lightly wrapped kerlix gauze changed at each shift. I would continue with left leg elevation. Leg Measurements: Left Leg Foot up from toes by 11 = 27 Ankle up from heel by 14 = 30 Calf up from heel by 34 = 48 Right Leg Foot=26 Ankle=26.5 Calf=41
--- NOTE | 2019-01-28 18:55 | P.PN_ITS ---
Subjective Date Patient Seen: 01/27/19 Exam Vital Signs (past 8 hours): - 01/28/19 11:00 01/28/19 12:30 01/28/19 12:45 Temperature 99.5 F 99.1 F Pulse Rate 123 H 124 H Respiratory Rate 16 24 24 Blood Pressure 105/73 122/77 131/80 Pulse Oximetry 98 100 01/28/19 12:55 01/28/19 13:10 01/28/19 13:30 Temperature 100.0 F H Pulse Rate 130 H 123 H Respiratory Rate 24 24 28 H Blood Pressure 122/86 106/79 131/76 Pulse Oximetry 99 97 96 01/28/19 14:02 01/28/19 14:10 01/28/19 14:16 Temperature 100.0 F H 101.1 F H Pulse Rate 120 H 119 H Respiratory Rate 16 16 Blood Pressure 144/79 H 111/71 Pulse Oximetry 99 01/28/19 14:40 01/28/19 16:01 01/28/19 16:06 Temperature 100.8 F H 100.8 F H Pulse Rate 116 H 118 H 124 H Respiratory Rate 20 20 20 Blood Pressure 124/72 164/80 H 142/84 H Pulse Oximetry 97 01/28/19 16:35 01/28/19 16:40 01/28/19 16:45 Temperature 100.3 F H Pulse Rate 112 H 112 H 113 H Respiratory Rate 32 H 25 H 32 H Blood Pressure 135/86 132/83 138/76 Pulse Oximetry 92 95 98 01/28/19 16:50 01/28/19 16:55 01/28/19 17:05 Temperature 98.9 F Pulse Rate 111 H 112 H 112 H Respiratory Rate 21 35 H 35 H Blood Pressure 139/77 115/78 133/78 Pulse Oximetry 97 95 96 01/28/19 17:35 01/28/19 18:05 Temperature 99.2 F 98.9 F Pulse Rate 123 H 118 H Respiratory Rate 30 H 26 H Blood Pressure 119/78 112/77 Pulse Oximetry 96 95 Oxygen Delivery Method Room Air Oxygen Flow Rate 2 Objective Labs Result Diagrams: 01/28/19 12:06 01/28/19 06:00 Labs: Laboratory Results - last 24 hr 01/27/19 01/27/19 01/28/19 17:00 21:32 06:00 WBC 15.1 H RBC 2.46 L Hgb 7.9 L Hct 23.7 L MCV 96.2 MCH 32.0 MCHC 33.2 RDW 14.3 Plt Count 281 Neut % (Auto) 73.1 Lymph % (Auto) 13.0 L [place] % (Auto) 12.7 Eos % (Auto) 0.6 L Baso % (Auto) 0.6 Neut # (Auto) 87087 H Lymph # (Auto) 2000 [place] # (Auto) 1900 H Eos # (Auto) 100 Baso # (Auto) 100 Sodium Potassium Chloride Carbon Dioxide BUN Creatinine Estimated GFR BUN/Creatinine Ratio Glucose Calcium Magnesium Total Bilirubin AST ALT Alkaline Phosphatase Total Protein Albumin Globulin Albumin/Globulin Ratio Procalcitonin Nasal Screen MRSA (PCR) Negative for mrsa Vancomycin Trough 20.1 H Blood Type Antibody Screen Crossmatch 01/28/19 01/28/19 01/28/19 06:00 06:00 12:06 WBC RBC Hgb 6.8 L* Hct 20.7 L* MCV MCH MCHC RDW Plt Count Neut % (Auto) Lymph % (Auto) [place] % (Auto) Eos % (Auto) Baso % (Auto) Neut # (Auto) Lymph # (Auto) [place] # (Auto) Eos # (Auto) Baso # (Auto) Sodium 136 L Potassium 3.8 Chloride 104 Carbon Dioxide 23 BUN 30 H Creatinine 0.90 Estimated GFR > 60.0 BUN/Creatinine Ratio 33.3 H Glucose 122 H Calcium 8.0 L Magnesium 1.9 Total Bilirubin 0.2 AST 105 H ALT 100 H Alkaline Phosphatase 121 Total Protein 5.1 L Albumin 2.5 L Globulin 2.6 Albumin/Globulin Ratio 1.0 Procalcitonin 0.78 H Nasal Screen MRSA (PCR) Vancomycin Trough Blood Type Antibody Screen Crossmatch 01/28/19 12:06 WBC RBC Hgb Hct MCV MCH MCHC RDW Plt Count Neut % (Auto) Lymph % (Auto) [place] % (Auto) Eos % (Auto) Baso % (Auto) Neut # (Auto) Lymph # (Auto) [place] # (Auto) Eos # (Auto) Baso # (Auto) Sodium Potassium Chloride Carbon Dioxide BUN Creatinine Estimated GFR BUN/Creatinine Ratio Glucose Calcium Magnesium Total Bilirubin AST ALT Alkaline Phosphatase Total Protein Albumin Globulin Albumin/Globulin Ratio Procalcitonin Nasal Screen MRSA (PCR) Vancomycin Trough Blood Type O Positive Antibody Screen Negative Crossmatch See Detail Assessment & Plan Assessment & Plan narrative: Brief progress note: Patient seen and examined. Patient hemodynamically stable. Assessment and plan unchanged other than ordered MRSA swab and started hydrocodone as needed for pain.
--- NOTE | 2019-01-28 19:10 | P.PN_ITS ---
Subjective Date Patient Seen: 01/28/19 Interval history: Catrachito Peck is a 58-year-old male with past medical history significant for hypertension, prostate cancer, obesity, chronic right lower extremity venous stasis ulcer, and alcohol abuse who presented to ED as directed by his PCP for left leg cellulitis. The patient appears pale today. He continues to be slightly tachycardic which was initially thought due to infection, however, infection is improving and tachycardia persistent and higher in mid 120's. CBC resulted and hemoglobin went from a 10.0 yesterday to 7.8 some of which was felt to be dilutional. The patient has had significant melena x2 this morning and repeat hemoglobin 6 hours after morning draw decreased to 6.8. Consulted surgery who will perform EGD today. Crossed and typed patient and plan to transfuse patient with 2 units PRBC. Patient reports he takes Excedrin and Aleve often several hours apart for pain. he also consumes a significant amount of alcohol and reports 3-4 beers usually on most days sometimes more, 6 or 7 beers. The patient is asymptomatic of his anemia and denies headache, lightheadedness or dizziness, chest pain, shortness of breath, abdominal pain, nausea, vomiting, fever, or chills. He is voiding and eliminating without difficulty. He is mostly in bed due to possible bleed. Exam Vital Signs (past 8 hours): - 01/28/19 11:00 01/28/19 12:30 01/28/19 12:45 Temperature 99.5 F 99.1 F Pulse Rate 123 H 124 H Respiratory Rate 16 24 24 Blood Pressure 105/73 122/77 131/80 Pulse Oximetry 98 100 01/28/19 12:55 01/28/19 13:10 01/28/19 13:30 Temperature 100.0 F H Pulse Rate 130 H 123 H Respiratory Rate 24 24 28 H Blood Pressure 122/86 106/79 131/76 Pulse Oximetry 99 97 96 01/28/19 14:02 01/28/19 14:10 01/28/19 14:16 Temperature 100.0 F H 101.1 F H Pulse Rate 120 H 119 H Respiratory Rate 16 16 Blood Pressure 144/79 H 111/71 Pulse Oximetry 99 01/28/19 14:40 01/28/19 16:01 01/28/19 16:06 Temperature 100.8 F H 100.8 F H Pulse Rate 116 H 118 H 124 H Respiratory Rate 20 20 20 Blood Pressure 124/72 164/80 H 142/84 H Pulse Oximetry 97 01/28/19 16:35 01/28/19 16:40 01/28/19 16:45 Temperature 100.3 F H Pulse Rate 112 H 112 H 113 H Respiratory Rate 32 H 25 H 32 H Blood Pressure 135/86 132/83 138/76 Pulse Oximetry 92 95 98 01/28/19 16:50 01/28/19 16:55 01/28/19 17:05 Temperature 98.9 F Pulse Rate 111 H 112 H 112 H Respiratory Rate 21 35 H 35 H Blood Pressure 139/77 115/78 133/78 Pulse Oximetry 97 95 96 01/28/19 17:35 01/28/19 18:05 Temperature 99.2 F 98.9 F Pulse Rate 123 H 118 H Respiratory Rate 30 H 26 H Blood Pressure 119/78 112/77 Pulse Oximetry 96 95 Oxygen Delivery Method Room Air Oxygen Flow Rate 2 Narrative Exam Narrative: General: Middle-aged gentleman lying in bed and in no acute distress, significantly more pale today, well-developed, well-nourished, appropriately interactive. HEENT: Normocephalic, atraumatic. External ears without defect. Pupils equal, round, and reactive to light. Anicteric but pale sclerae, moist conjunctivae, and no lid lag. Oropharynx free of erythema and cobble stoning with moist mucosa. Neck: Supple with full range of motion. No lymphadenopathy or thyromegaly. Cardiovascular: Regular rhythm, tachycardic, without murmurs, rubs, or gallops appreciated Pulmonary: Clear to auscultation bilaterally without crackles, wheezes, or rhonchi. Normal respiratory effort with no use of accessory muscles. Abdomen: Soft, bowel sounds present, nontender, nondistended. No hepatosplenomegaly or masses appreciated. Extremities: No clubbing, cyanosis, or edema. Skin: Normal temperature, turgor, and texture; no rash, ulcers, or subcutaneous nodules appreciated. Neurological: Cranial nerves grossly intact. Psychiatric: Normal mood and affect. Alert and oriented to person, place, and time. Objective Labs Result Diagrams: 01/28/19 12:06 01/28/19 06:00 Labs: Laboratory Results - last 24 hr 01/27/19 01/27/19 01/28/19 17:00 21:32 06:00 WBC 15.1 H RBC 2.46 L Hgb 7.9 L Hct 23.7 L MCV 96.2 MCH 32.0 MCHC 33.2 RDW 14.3 Plt Count 281 Neut % (Auto) 73.1 Lymph % (Auto) 13.0 L [place] % (Auto) 12.7 Eos % (Auto) 0.6 L Baso % (Auto) 0.6 Neut # (Auto) 68085 H Lymph # (Auto) 2000 [place] # (Auto) 1900 H Eos # (Auto) 100 Baso # (Auto) 100 Sodium Potassium Chloride Carbon Dioxide BUN Creatinine Estimated GFR BUN/Creatinine Ratio Glucose Calcium Magnesium Total Bilirubin AST ALT Alkaline Phosphatase Total Protein Albumin Globulin Albumin/Globulin Ratio Procalcitonin Nasal Screen MRSA (PCR) Negative for mrsa Vancomycin Trough 20.1 H Blood Type Antibody Screen Crossmatch 01/28/19 01/28/19 01/28/19 06:00 06:00 12:06 WBC RBC Hgb 6.8 L* Hct 20.7 L* MCV MCH MCHC RDW Plt Count Neut % (Auto) Lymph % (Auto) [place] % (Auto) Eos % (Auto) Baso % (Auto) Neut # (Auto) Lymph # (Auto) [place] # (Auto) Eos # (Auto) Baso # (Auto) Sodium 136 L Potassium 3.8 Chloride 104 Carbon Dioxide 23 BUN 30 H Creatinine 0.90 Estimated GFR > 60.0 BUN/Creatinine Ratio 33.3 H Glucose 122 H Calcium 8.0 L Magnesium 1.9 Total Bilirubin 0.2 AST 105 H ALT 100 H Alkaline Phosphatase 121 Total Protein 5.1 L Albumin 2.5 L Globulin 2.6 Albumin/Globulin Ratio 1.0 Procalcitonin 0.78 H Nasal Screen MRSA (PCR) Vancomycin Trough Blood Type Antibody Screen Crossmatch 01/28/19 12:06 WBC RBC Hgb Hct MCV MCH MCHC RDW Plt Count Neut % (Auto) Lymph % (Auto) [place] % (Auto) Eos % (Auto) Baso % (Auto) Neut # (Auto) Lymph # (Auto) [place] # (Auto) Eos # (Auto) Baso # (Auto) Sodium Potassium Chloride Carbon Dioxide BUN Creatinine Estimated GFR BUN/Creatinine Ratio Glucose Calcium Magnesium Total Bilirubin AST ALT Alkaline Phosphatase Total Protein Albumin Globulin Albumin/Globulin Ratio Procalcitonin Nasal Screen MRSA (PCR) Vancomycin Trough Blood Type O Positive Antibody Screen Negative Crossmatch See Detail Assessment & Plan Assessment & Plan narrative: Catrachito Peck is a 58-year-old male with past medical history significant for hypertension, prostate cancer, obesity, chronic right lower extremity venous stasis ulcer, and alcohol abuse who presented to ED as directed by his PCP for left leg cellulitis. 1. Acute blood-loss anemia, likely secondary to upper GI bleed, likely present on admission. Active. -Patient reports significant alcohol consumption in way of 3-4 beers and s ometimes 6-7 beers per night but not every night. He also takes Excedrin and Aleve (several hours apart) on a regular basis for pain. -Patient became increasingly tachycardic (initially thought due to infection as was very mild low 100s) this morning and had 2 melanotic bowel movements. Hemoglobin dropped from 10.0 to 7.8 (over 24 hours) and then to 6.8 in 6 hours. -Likely secondary to upper GI ulcer from NSAIDs and EtOH. Possible dilutional component and patient has significant. -Ordered and will transfuse 2 units PRBC. -Consulted General surgery who plans to perform EGD later this evening. -Continue to monitor H&H closely. 2. Sepsis, acute, present on admission, active -Sepsis criteria met including: tachypneic, tachycardic, leukocytosis (WBC 16.9), PCT (4.81), and JULIAN. -Early goal-directed therapy med including IV fluid resuscitation and broad- spectrum antibiotics. 3. Acute left lower extremity cellulitis, present on admission. Active. -Likely secondary to chronic venous stasis ulcer. -LLE U/S unremarkable for DVT. -CXR demonstrated no acute cardiopulmonary findings. UA negative. -Left femur and tibia-fibula XR unremarkable for fractures, dislocations, or suspicious bony lesions. No gas visualized within the soft tissues. -Received 1 L NS bolus in ED with improvement in heart rate and continued on IVF. Discontinued IV fluids today as dilutional component to anemia and receiving 2 U PRBCs as above. -Blood cultures and wound culture have no growth to date. -Continue vancomycin with dosing per pharmacy and Flagyl 500 mg every 6 hours. -Continue tylenol 650 mg every 6 hours as needed for mild pain and hydrocodone every 4 hours as needed for moderate to severe pain -Continue supportive care and elevate extremity. 4. Acute hypovolemia, present on admission. Active. -Initially thought to be solely secondary to cellulitis and hypermetabolic state. However, patient now has upper GI bleed and also secondary to acute blood loss as above. -Discontinued IV fluids today as dilutional component to anemia and receiving 2 U PRBCs as above. 5. Acute kidney injury, present on admission. Resolved. -Baseline renal function is unknown. Now clearly acute in the setting of hypovolemia secondary to acute blood loss and cellulitis. -Continue to avoid nephrotoxic agents. 6. Transaminitis, acuity unclear but likely acute, present on admission. Resolving. -Patient has a history of moderate EtOH use and has significant cellulitic infection. -AST 291, ALT 165, Alk Phos 190, Lipase 290. -Continue to trend liver enzymes. 7. Essential hypertension, chronic, present on admission. Stable. -Continue to hold losartan for now as patient has had slightly labile blood pressure today due to hypovolemia and acute blood loss. Disposition: Likely to discharge home in several days after improvement of cellulitis with treatment and correction of GI bleed.
[2019-01-29] VITALS (20 sets, daily range): BP systolic 112–161; BP diastolic 69–90; PULSE 92–108; RESP 16–21; TEMP 36.6–37.8; O2SAT 94–99
--- NOTE | 2019-01-29 01:53 | PC.NURSE ---
Reconditioner Note: 0030: Sleeping intermittently. Pt remains on telemetry. IVs in place in rt arm. Vital signs stable. Pt up to bathroom, and HR up to 135; HR back down to 106 when back in bed.
[2019-01-29] MEDS: PANTOPRAZOLE 80 MG in SODIUM CHLORIDE 0.9% 100 ML 10 ML IV ×2 (03:42→17:38)
[2019-01-29] MEDS: metroNIDAZOLE 500 MG/100 ML PIGGYBACK 100 MG IV ×3 (05:01→20:40)
[2019-01-29 07:08] LABS: Hemoglobin 7.1 g/dL (13.5-17.5); Mean Corpuscular HGB Conc 32.7 % (30-36); Mean Corpuscular Hemoglobin 30.2 PG (26-34); Mean Corpuscular Volume 92.4 fL (80-100); Red Blood Cell Count 2.35 X10^6/uL (4.5-5.9); White Blood Cell Count 23.8 X10^3/uL (4.5-11.0)
[2019-01-29 07:10] LABS: Alanine Aminotransferase 66 IU/L (21-72); Albumin 2.4 g/dL (3.5-5.0); Albumin Globulin Ratio 0.9 (1.0-2.8); Alkaline Phosphatase 105 U/L (38-126); Aspartate Aminotransferase 61 IU/L (17-59); BUN Creatinine Ratio 33.8 (6-22); Bilirubin Total 0.3 mg/dL (0.2-1.3); Blood Urea Nitrogen 27 mg/dL (9-20); Calcium 7.9 mg/dL (8.4-10.2); Carbon Dioxide 23 mmol/L (22-32); Chloride 106 mmol/L (98-107); Estimated Glomerular Filt Rate > 60.0 mL/min (>60); Globulin 2.6 g/dL (1.7-4.1); Glucose 136 mg/dL (80-110); HEMOLYSIS < 15 (0-50); Potassium 4.1 mmol/L (3.4-5.1); Sodium 139 mmol/L (137-145)
[2019-01-29 07:13] LABS: Add Manual Diff / Slide Review YES; Hematocrit 21.7 % (41-53)
[2019-01-29 07:46] LABS: Procalcitonin 1.93 ng/mL (<0.5)
[2019-01-29 07:47] LABS: Vancomycin Trough < 5.0 ug/mL (10-20)
[2019-01-29 08:30] LABS: Neutrophils Absolute Manual 17850 /uL (3000-5900); Total Cells Counted 100
[2019-01-29 08:32] LABS: Polychromasia 1+
[2019-01-29 08:33] LABS: Platelet Count 334 X10^3/uL (150-400)
--- NOTE | 2019-01-29 09:35 | PM.PN.1 ---
Subjective Date Patient Seen: 01/29/19 Time Patient Seen: 09:35 Interval history: Patient's 12 the 16 hours post upper endoscopy injection of a duodenal ulcer. This was done for significant upper GI bleed. Patient has no pain is alert and oriented he is still passing melena. Exam Vital Signs (past 8 hours): - 01/29/19 03:27 01/29/19 04:57 01/29/19 07:43 Temperature 97.8 F 99.1 F Pulse Rate 107 H 102 H Respiratory Rate 16 18 Blood Pressure 112/69 132/88 Pulse Oximetry 98 94 98 01/29/19 08:46 01/29/19 09:00 Temperature Pulse Rate Respiratory Rate Blood Pressure Pulse Oximetry 97 98 Fraction of Inspired Oxygen 21 Oxygen Delivery Method Room Air Oxygen Flow Rate 0 Narrative Exam Narrative: Heart rate 100 blood pressure 130/80. Patient is alert and oriented. Abdomen is soft with no tenderness. Objective Labs Result Diagrams: 01/29/19 06:19 01/29/19 06:19 Labs: Laboratory Results - last 24 hr 01/28/19 01/28/19 01/29/19 12:06 12:06 06:19 WBC Cancelled RBC Cancelled Hgb 6.8 L* Cancelled Hct 20.7 L* Cancelled MCV Cancelled MCH Cancelled MCHC Cancelled RDW Cancelled Plt Count Cancelled Neut % (Auto) Cancelled Lymph % (Auto) Cancelled [place] % (Auto) Cancelled Eos % (Auto) Cancelled Baso % (Auto) Cancelled Neut # (Auto) Cancelled Lymph # (Auto) Cancelled [place] # (Auto) Cancelled Eos # (Auto) Cancelled Baso # (Auto) Cancelled Total Counted Seg Neutrophils % Band Neutrophils % Lymphocytes % (Manual) Monocytes % (Manual) Metamyelocytes % Neutrophils # (Manual) RBC Morphology Polychromasia Sodium Potassium Chloride Carbon Dioxide BUN Creatinine Estimated GFR BUN/Creatinine Ratio Glucose Calcium Magnesium Total Bilirubin AST ALT Alkaline Phosphatase Total Protein Albumin Globulin Albumin/Globulin Ratio Procalcitonin Vancomycin Trough Blood Type O Positive Antibody Screen Negative Crossmatch See Detail 01/29/19 01/29/19 01/29/19 06:19 06:19 06:19 WBC 23.8 H D RBC 2.35 L Hgb 7.1 L Hct 21.7 L MCV 92.4 D MCH 30.2 MCHC 32.7 RDW 16.0 H Plt Count 334 Neut % (Auto) Not Reportable Lymph % (Auto) Not Reportable [place] % (Auto) Not Reportable Eos % (Auto) Not Reportable Baso % (Auto) Not Reportable Neut # (Auto) Lymph # (Auto) Not Reportable [place] # (Auto) Not Reportable Eos # (Auto) Baso # (Auto) Not Reportable Total Counted 100 Seg Neutrophils % 66.0 Band Neutrophils % 9.0 H Lymphocytes % (Manual) 16.0 L Monocytes % (Manual) 8.0 Metamyelocytes % 1.0 H Neutrophils # (Manual) 56515 H RBC Morphology Not Reportable Polychromasia 1+ H Sodium Potassium Chloride Carbon Dioxide BUN Creatinine Estimated GFR BUN/Creatinine Ratio Glucose Calcium Magnesium Total Bilirubin AST ALT Alkaline Phosphatase Total Protein Albumin Globulin Albumin/Globulin Ratio Procalcitonin 1.93 H Vancomycin Trough < 5.0 L Blood Type Antibody Screen Crossmatch 01/29/19 06:19 WBC RBC Hgb Hct MCV MCH MCHC RDW Plt Count Neut % (Auto) Lymph % (Auto) [place] % (Auto) Eos % (Auto) Baso % (Auto) Neut # (Auto) Lymph # (Auto) [place] # (Auto) Eos # (Auto) Baso # (Auto) Total Counted Seg Neutrophils % Band Neutrophils % Lymphocytes % (Manual) Monocytes % (Manual) Metamyelocytes % Neutrophils # (Manual) RBC Morphology Polychromasia Sodium 139 Potassium 4.1 Chloride 106 Carbon Dioxide 23 BUN 27 H Creatinine 0.80 Estimated GFR > 60.0 BUN/Creatinine Ratio 33.8 H Glucose 136 H Calcium 7.9 L Magnesium 2.0 Total Bilirubin 0.3 AST 61 H ALT 66 Alkaline Phosphatase 105 Total Protein 5.0 L Albumin 2.4 L Globulin 2.6 Albumin/Globulin Ratio 0.9 L Procalcitonin Vancomycin Trough Blood Type Antibody Screen Crossmatch Assessment & Plan Assessment & Plan narrative: Patient received a total of 2 units of packed red cells yesterday. Hemoglobin this morning is 7.1. He is still passing melanotic stools but this may just be old blood. We are following his hemoglobin carefully. Patient remains on continuous infusion of PPI in the form of Protonix. Blood pressure and heart rate have improved. We will follow his hemoglobin and transfuse if again if necessary. I do not think he needs repeat endoscopy at this time.
[2019-01-29] MEDS: VANCOMYCIN 1,000 MG/200 ML FROZ.PIGGY 200 MG IV ×2 (09:49→19:23)
[2019-01-29] MEDS: ACETAMINOPHEN 325 MG TABLET 650 MG PO (11:08)
[2019-01-29] MEDS: HYDROCODONE/ACET 5/325 TABLET 1 TAB PO ×3 (12:30→21:18)
[2019-01-29 12:47] LABS: Hematocrit 20.4 % (41-53); Hemoglobin 6.6 g/dL (13.5-17.5)
--- NOTE | 2019-01-29 15:27 | PC.NURSE ---
Rec'd pt from acute care to room 105 at 1455. Pt is AAO x3. Reports LE pain 4/10 throbbing. States he is tolerating pain at present. VSS. Oriented to room, call light, bedside report. Pt verbalizes understanding.
--- NOTE | 2019-01-29 15:47 | PC.NURSE ---
1545- Reviewed the plan of care for tiago. Patient advised that he will be using a BSC and that all stools are to be viewed by RN. Patient advised that for safety he would need to call and need to not get up in the room without assist. Patient reluctantly agreed to call for assist. Patient advised that he is at high risk for a fall due to his active bleeding. Patient signed a consent for procedure and is tentatively on the OR schedule for AM EGD. Patient has a signed consent for blood. Patient has had one melana stool no dena bleeding. VSS.
--- NOTE | 2019-01-29 20:57 | P.PN_ITS ---
Subjective Date Patient Seen: 01/29/19 Interval history: Catrachito Peck is a 58-year-old male with past medical history significant for hypertension, prostate cancer, obesity, chronic right lower extremity venous stasis ulcer, and alcohol abuse who presented to ED as directed by his PCP for left leg cellulitis. The patient continues to be extremely pale. His blood counts did not compensate for his blood transfusions. Per the surgeon Dr. Diallo, the patient had significant amount of melanotic gastric contents during EGD. He continues to be mildly tachycardic. Repeat blood count early afternoon demonstrated continued decrease/drifting. Patient reports at least 5-6 melanotic BMs since 1:00 a.m.. Plan to transfuse 2 more units PRBC. Vancomycin was dropped off NOV yesterday after EGD and restarted today per pharmacist. Informed the patient of the mistake and that his infectious markers increased due to missed dose of antibiotic. The patient is asymptomatic of his anemia and denies headache, lightheadedness or dizziness, chest pain, shortness of breath, abdominal pain, nausea, vomiting, fever, or chills. He continues to have mild pain in left leg due to infection but reports it is improving. He is voiding and eliminating without difficulty. He is mostly in bed due to possible bleed. Exam Vital Signs (past 8 hours): - 01/29/19 14:28 01/29/19 14:55 01/29/19 15:58 Temperature 99.5 F 98.3 F Pulse Rate 102 H 103 H Respiratory Rate 16 16 Blood Pressure 145/86 H 145/86 H Pulse Oximetry 99 98 01/29/19 17:31 01/29/19 17:44 01/29/19 18:00 Temperature 98.9 F 98.6 F Pulse Rate 103 H 108 H Respiratory Rate 21 20 Blood Pressure 134/89 147/79 H Pulse Oximetry 96 01/29/19 19:22 Temperature 99.3 F Pulse Rate 97 H Respiratory Rate 20 Blood Pressure 136/77 Pulse Oximetry Fraction of Inspired Oxygen 21 Oxygen Delivery Method Room Air Oxygen Flow Rate 0 Narrative Exam Narrative: General: Middle-aged gentleman lying in bed and in no acute distress, signifi cantly pallor, well-developed, well-nourished, appropriately interactive. HEENT: Normocephalic, atraumatic. External ears without defect. Pupils equal, round, and reactive to light. Anicteric but pale sclerae, moist conjunctivae, and no lid lag. Neck: Supple with full range of motion. No lymphadenopathy or thyromegaly. Cardiovascular: Regular rhythm, tachycardic, without murmurs, rubs, or gallops appreciated Pulmonary: Clear to auscultation bilaterally without crackles, wheezes, or rhonchi. Normal respiratory effort with no use of accessory muscles. Abdomen: Soft, bowel sounds present, nontender, nondistended. No hepatosplenomegaly or masses appreciated. Extremities: No clubbing or cyanosis of right leg. Red cellulitic with chronic venous stasis ulcer on anterior medial aspect of left leg. Skin: Normal temperature, turgor, and texture; no rash, ulcers, or subcutaneous nodules appreciated. Neurological: Cranial nerves grossly intact. Psychiatric: Normal mood and affect. Alert and oriented to person, place, and time. Objective Labs Result Diagrams: 01/29/19 12:30 01/29/19 06:19 Labs: Laboratory Results - last 24 hr 01/28/19 01/29/19 01/29/19 12:06 06:19 06:19 WBC Cancelled RBC Cancelled Hgb Cancelled Hct Cancelled MCV Cancelled MCH Cancelled MCHC Cancelled RDW Cancelled Plt Count Cancelled Neut % (Auto) Cancelled Lymph % (Auto) Cancelled [place] % (Auto) Cancelled Eos % (Auto) Cancelled Baso % (Auto) Cancelled Neut # (Auto) Cancelled Lymph # (Auto) Cancelled [place] # (Auto) Cancelled Eos # (Auto) Cancelled Baso # (Auto) Cancelled Total Counted Seg Neutrophils % Band Neutrophils % Lymphocytes % (Manual) Monocytes % (Manual) Metamyelocytes % Neutrophils # (Manual) RBC Morphology Polychromasia Sodium Potassium Chloride Carbon Dioxide BUN Creatinine Estimated GFR BUN/Creatinine Ratio Glucose Calcium Magnesium Total Bilirubin AST ALT Alkaline Phosphatase Total Protein Albumin Globulin Albumin/Globulin Ratio Procalcitonin Vancomycin Trough < 5.0 L Blood Type O Positive Antibody Screen Negative Crossmatch See Detail 01/29/19 01/29/19 01/29/19 06:19 06:19 06:19 WBC 23.8 H D RBC 2.35 L Hgb 7.1 L Hct 21.7 L MCV 92.4 D MCH 30.2 MCHC 32.7 RDW 16.0 H Plt Count 334 Neut % (Auto) Not Reportable Lymph % (Auto) Not Reportable [place] % (Auto) Not Reportable Eos % (Auto) Not Reportable Baso % (Auto) Not Reportable Neut # (Auto) Lymph # (Auto) Not Reportable [place] # (Auto) Not Reportable Eos # (Auto) Baso # (Auto) Not Reportable Total Counted 100 Seg Neutrophils % 66.0 Band Neutrophils % 9.0 H Lymphocytes % (Manual) 16.0 L Monocytes % (Manual) 8.0 Metamyelocytes % 1.0 H Neutrophils # (Manual) 22630 H RBC Morphology Not Reportable Polychromasia 1+ H Sodium 139 Potassium 4.1 Chloride 106 Carbon Dioxide 23 BUN 27 H Creatinine 0.80 Estimated GFR > 60.0 BUN/Creatinine Ratio 33.8 H Glucose 136 H Calcium 7.9 L Magnesium 2.0 Total Bilirubin 0.3 AST 61 H ALT 66 Alkaline Phosphatase 105 Total Protein 5.0 L Albumin 2.4 L Globulin 2.6 Albumin/Globulin Ratio 0.9 L Procalcitonin 1.93 H Vancomycin Trough Blood Type Antibody Screen Crossmatch 01/29/19 12:30 WBC RBC Hgb 6.6 L* Hct 20.4 L* MCV MCH MCHC RDW Plt Count Neut % (Auto) Lymph % (Auto) [place] % (Auto) Eos % (Auto) Baso % (Auto) Neut # (Auto) Lymph # (Auto) [place] # (Auto) Eos # (Auto) Baso # (Auto) Total Counted Seg Neutrophils % Band Neutrophils % Lymphocytes % (Manual) Monocytes % (Manual) Metamyelocytes % Neutrophils # (Manual) RBC Morphology Polychromasia Sodium Potassium Chloride Carbon Dioxide BUN Creatinine Estimated GFR BUN/Creatinine Ratio Glucose Calcium Magnesium Total Bilirubin AST ALT Alkaline Phosphatase Total Protein Albumin Globulin Albumin/Globulin Ratio Procalcitonin Vancomycin Trough Blood Type Antibody Screen Crossmatch Assessment & Plan Assessment & Plan narrative: Catrachito Peck is a 58-year-old male with past medical history significant for hypertension, prostate cancer, obesity, chronic right lower extremity venous stasis ulcer, and alcohol abuse who presented to ED as directed by his PCP for left leg cellulitis. 1. Acute blood-loss anemia, likely secondary to upper GI bleed, likely present on admission. Active. -Patient reports significant alcohol consumption in way of 3-4 beers and s ometimes 6-7 beers per night but not every night. He also takes Excedrin and Aleve (several hours apart) on a regular basis for pain. -Patient became increasingly tachycardic (initially thought due to infection as was very mild low 100s) this morning and had 2 melanotic bowel movements. Hemoglobin dropped from 10.0 to 7.8 (over 24 hours) and then to 6.8 in 6 hours. -Likely secondary to upper GI ulcer from NSAIDs and EtOH. Possible dilutional component and patient has significant cellulitis. -Received 2 units PRBC and will transfuse 2 units PRBC. -Consulted General surgery, Dr. Diallo, who performed EGD yesterday evening and found a large duodenal ulcer now status post epinephrine injection x3. Due to continued presumed bleeding/oozing, patient will be taken back for another EGD t omorrow morning to investigate ulcer and other pathology. -Continue to monitor H&H closely. 2. Sepsis, acute, present on admission. Resolved. -Sepsis criteria met including: tachypneic, tachycardic, leukocytosis (WBC 16.9), PCT (4.81), and JULIAN. -Early goal-directed therapy med including IV fluid resuscitation and broad- spectrum antibiotics. 3. Acute left lower extremity cellulitis, present on admission. Active. -Likely secondary to chronic venous stasis ulcer. -LLE U/S unremarkable for DVT. -CXR demonstrated no acute cardiopulmonary findings. UA negative. -Left femur and tibia-fibula XR unremarkable for fractures, dislocations, or suspicious bony lesions. No gas visualized within the soft tissues. -Received 1 L NS bolus in ED with improvement in heart rate and continued on IVF. Discontinued IV fluids today as dilutional component to anemia and receiving 2 U PRBCs as above. -Blood cultures have no growth to date. Wound culture growing 3 gram-positive cocci colonies. -Continue vancomycin with dosing per pharmacy and Flagyl 500 mg every 6 hours. -Continue tylenol 650 mg every 6 hours as needed for mild pain and hydrocodone every 4 hours as needed for moderate to severe pain -Continue supportive care and elevate extremity. 4. Acute hypovolemia, present on admission. Active. -Initially thought to be solely secondary to cellulitis and hypermetabolic state. However, patient now has upper GI bleed and also secondary to acute blood loss as above. -Discontinued IV fluids today as dilutional component to anemia and receiving 2 U PRBCs as above. 5. Acute kidney injury, present on admission. Resolved. -Baseline renal function is unknown. Now clearly acute in the setting of hypovolemia secondary to acute blood loss and cellulitis. -Continue to avoid nephrotoxic agents. 6. Transaminitis, acuity unclear but likely acute, present on admission. Resolving. -Patient has a history of moderate EtOH use and has significant cellulitic infection. -AST 291, ALT 165, Alk Phos 190, Lipase 290. -Continue to trend liver enzymes. 7. Essential hypertension, chronic, present on admission. Stable. -Continue to hold losartan for now as patient has had slightly labile blood pressure today due to hypovolemia and acute blood loss. Disposition: Likely to discharge home in several days after improvement of cellulitis with treatment and correction of GI bleed.
[2019-01-30] VITALS (8 sets, daily range): BP systolic 126–151; BP diastolic 75–96; PULSE 92–105; RESP 12–24; TEMP 36.8–37.9; O2SAT 96–97
[2019-01-30] MEDS: HYDROCODONE/ACET 5/325 TABLET 1 TAB PO ×4 (02:35→17:37)
[2019-01-30 02:55] LABS: Hematocrit 24.8 % (41-53); Hemoglobin 8.2 g/dL (13.5-17.5)
[2019-01-30] MEDS: metroNIDAZOLE 500 MG/100 ML PIGGYBACK 100 MG IV ×4 (03:05→21:45)
[2019-01-30] MEDS: PANTOPRAZOLE 80 MG in SODIUM CHLORIDE 0.9% 100 ML 10 ML IV ×2 (03:46→14:56)
[2019-01-30] MEDS: VANCOMYCIN 1,000 MG/200 ML FROZ.PIGGY 200 MG IV (03:46)
[2019-01-30 07:51] LABS: Procalcitonin 0.99 ng/mL (<0.5)
[2019-01-30 07:58] LABS: BUN Creatinine Ratio 21.4 (6-22); Blood Urea Nitrogen 15 mg/dL (9-20); Calcium 7.7 mg/dL (8.4-10.2); Carbon Dioxide 24 mmol/L (22-32); Chloride 106 mmol/L (98-107); Estimated Glomerular Filt Rate > 60.0 mL/min (>60); Glucose 102 mg/dL (80-110); HEMOLYSIS < 15 (0-50); Sodium 135 mmol/L (137-145)
[2019-01-30 10:12] LABS: Hematocrit 25.9 % (41-53); Hemoglobin 8.7 g/dL (13.5-17.5)
--- NOTE | 2019-01-30 10:29 | PC.NURSE ---
PATIENT UP TO SINK TO BRUSH TEETH, THEN BATHROOM TO USE URINAL. URINE LIGHT KELLEY. DID NOT HAVE BM. DENIES ABD CRAMPING OR NAUSEA. DR. MORALEZ ROUNDED EARLY THIS AM. WILL NOT HAVE SCOPE TODAY. ALLOWED TO HAVE FULL LIQUID DIET. SPOUSE AND PATIENT UPDATED ON SAME.
--- NOTE | 2019-01-30 10:52 | PM.PN.1 ---
Subjective Date Patient Seen: 01/30/19 Time Patient Seen: 10:52 Interval history: He is seen in his room today to follow up the anemia/duodenal ulcer bleeding/left leg cellulitis and ulcers. His hemoglobin has stabilized at 8.7. He continues on a Protonix drip. The left leg pain is still throbbing but appears to be improved. His blood pressure is 126/96. Exam Vital Signs (past 8 hours): - 01/30/19 06:00 01/30/19 08:00 Temperature 98.7 F 98.5 F Pulse Rate 102 H 101 H Respiratory Rate 20 16 Blood Pressure 126/96 H 150/88 H Pulse Oximetry 97 96 Fraction of Inspired Oxygen 21 Oxygen Delivery Method Room Air Oxygen Flow Rate 0 Narrative Exam Narrative: He is alert and oriented x3. No apparent distress. Heart is regular rate and rhythm without murmur. Lungs are clear to auscultation bilaterally. Abdomen is soft, bowel sounds positive, nontender, no organomegaly. Extremities the right leg is normal. The left leg is swollen with 3 patchy ulcers and some surrounding redness but no diffuse cellulitis today. The redness is quite minimal. This peeling of the skin is suggestive of diminishing edema. Objective Labs Result Diagrams: 01/30/19 10:06 01/30/19 07:10 Labs: Laboratory Results - last 24 hr 01/28/19 01/29/19 01/30/19 12:06 12:30 02:19 Hgb 6.6 L* 8.2 L Hct 20.4 L* 24.8 L Sodium Potassium Chloride Carbon Dioxide BUN Creatinine Estimated GFR BUN/Creatinine Ratio Glucose Calcium Procalcitonin Blood Type O Positive Antibody Screen Negative Crossmatch See Detail 01/30/19 01/30/19 01/30/19 07:10 07:10 10:06 Hgb 8.7 L Hct 25.9 L Sodium 135 L Potassium 4.0 Chloride 106 Carbon Dioxide 24 BUN 15 Creatinine 0.70 Estimated GFR > 60.0 BUN/Creatinine Ratio 21.4 Glucose 102 Calcium 7.7 L Procalcitonin 0.99 H Blood Type Antibody Screen Crossmatch Assessment & Plan Assessment & Plan narrative: 1. Acute blood-loss anemia, secondary to upper GI bleed, present on admission. Active. -Patient reports significant alcohol consumption of 3-4 beers and sometimes 6-7 beers per night but not every night. He also takes Excedrin and Aleve (several hours apart) on a regular basis for pain. -Patient became increasingly tachycardic and had 2 melanotic bowel movements. Hemoglobin dropped from 10.0 to 7.8 (over 24 hours) and then to 6.8 in 6 hours. -Likely secondary to upper GI ulcer from NSAIDs and EtOH. Possible dilutional component and patient has significant cellulitis. -Received 4 units PRBC total with current hemoglobin stabilized at 8.7. -Dr. Diallo performed EGD and found a large duodenal ulcer now status post epinephrine injection x3. Due to continued hgb stability he was not taken back for another EGD as planned. -Continue to monitor H&H closely. -continue IV pantoprazole. 2. Sepsis, acute, present on admission. Resolved. -Sepsis criteria met including: tachypneic, tachycardic, leukocytosis (WBC 16.9), PCT (4.81), and JULIAN. -Early goal-directed therapy med including IV fluid resuscitation and broad-spectrum antibiotics. 3. Acute left lower extremity cellulitis, present on admission. Active. -Likely secondary to chronic venous stasis ulcer. -LLE U/S unremarkable for DVT. -CXR demonstrated no acute cardiopulmonary findings. UA negative. -Left femur and tibia-fibula XR unremarkable for fractures, dislocations, or suspicious bony lesions. No gas visualized within the soft tissues. -Blood cultures have no growth to date. Wound culture growing 3 gram-positive cocci colonies. -Continue vancomycin with dosing per pharmacy and Flagyl 500 mg every 6 hours. -Continue tylenol 650 mg every 6 hours as needed for mild pain and hydrocodone every 4 hours as needed for moderate to severe pain -Continue supportive care and elevate extremity. 4. Acute hypovolemia, present on admission. Active. -Initially thought to be solely secondary to cellulitis and hypermetabolic state. However, patient now has upper GI bleed and also secondary to acute blood loss as above. -Discontinued IV fluids yesterday 5. Acute kidney injury, present on admission. Resolved. -Baseline renal function is unknown. Now clearly acute in the setting of hypovolemia secondary to acute blood loss and cellulitis. -Continue to avoid nephrotoxic agents. 6. Transaminitis, acuity unclear but likely acute, present on admission. Resolving. -Patient has a history of moderate EtOH use and has significant cellulitic infection. -AST 291, ALT 165, Alk Phos 190, Lipase 290. -Continue to trend liver enzymes. 7. Essential hypertension, chronic, present on admission. Stable. -resume the losartan now Disposition: Likely to discharge home in several days after improvement of cellulitis with treatment and correction of GI bleed.
[2019-01-30 12:03] LABS: Vancomycin Trough 8.3 ug/mL (10-20)
[2019-01-30] MEDS: VANCOMYCIN TROUGH 1 REQUEST MISC (12:31)
[2019-01-30] MEDS: VANCOMYCIN 300 ML 200 MG IV ×2 (12:31→20:29)
[2019-01-30] MEDS: LOSARTAN 50 MG TABLET PO (14:56)
--- NOTE | 2019-01-30 15:10 | PC.NURSE ---
FINAL WOUND CX; SPOKE W/ BRIAN GALINDO R/T WOUND CX'S. 3 TYPES OF STAPH GREW OUT, NONE OF THEM ARE STAPH AUREUS THOUGH 2 ARE RESISTANT TO OXACILLIN. CONTACT PRECAUTIONS NOT INDICATED PER DR. GALINDO.
--- NOTE | 2019-01-30 15:49 | CM.DPC ---
DCP: continued: Pt continued with POC. RN Casandra did contact infectious disease physician and has clarified for care team that contact precautions are not needed. Pt is ok'd for full liquids. His has been at bedside. DCP team will continue to follow. Likely home when stable for same. Hospitalist Dr. Fletcher followed today, Dr. Del Rosario will see pt tomorrow. Surgeon team is consulting. Dr. Fletcher clarifies pt as having moderate alcohol use, 3-4 or more beers at a time but not on a daily basis. DCP team will be following prn
[2019-01-30] MEDS: HYDROCODONE/ACET 5/325 TABLET 2 TAB PO (18:07)
--- NOTE | 2019-01-30 18:19 | PC.NURSE ---
1800- Patient reports that one vicodin is not adequate pain relief. Call placed to Dr. Fletcher pain medication increased. Will monitor
[2019-01-31] VITALS (9 sets, daily range): BP systolic 119–147; BP diastolic 70–82; PULSE 86–110; RESP 16–20; TEMP 36–37.4; O2SAT 96–98
[2019-01-31] MEDS: HYDROCODONE/ACET 5/325 TABLET 2 TAB PO ×4 (00:40→13:15)
[2019-01-31] MEDS: PANTOPRAZOLE 80 MG in SODIUM CHLORIDE 0.9% 100 ML 10 ML IV (00:41)
[2019-01-31] MEDS: metroNIDAZOLE 500 MG/100 ML PIGGYBACK 100 MG IV ×3 (02:54→16:09)
[2019-01-31] MEDS: VANCOMYCIN 300 ML 200 MG IV ×3 (04:15→20:14)
[2019-01-31 05:27] LABS: Add Manual Diff / Slide Review NO; Basophils Absolute Auto 100 /uL (0-100); Basophils Percent Auto 0.5 % (0-2); Eosinophils Absolute Auto 200 /uL (0-450); Hematocrit 25.2 % (41-53); Hemoglobin 8.3 g/dL (13.5-17.5); Lymphocytes Absolute Auto 2400 /uL (1100-4500); Lymphocytes Percent Auto 12.8 % (25-40); Mean Corpuscular HGB Conc 32.9 % (30-36); Mean Corpuscular Volume 94.4 fL (80-100); Monocytes Absolute Auto 1700 /uL (0-900); Monocytes Percent Auto 8.8 % (3-14); Neutrophils Absolute Auto 14700 /uL (1500-7000); Neutrophils Percent Auto 76.9 % (50-75); Platelet Count 372 X10^3/uL (150-400); Red Blood Cell Count 2.67 X10^6/uL (4.5-5.9); Red Cell Distribution Width 15.8 % (11.6-14.8); White Blood Cell Count 19.1 X10^3/uL (4.5-11.0)
[2019-01-31 05:43] LABS: BUN Creatinine Ratio 12.5 (6-22); Blood Urea Nitrogen 10 mg/dL (9-20); Carbon Dioxide 24 mmol/L (22-32); Chloride 106 mmol/L (98-107); Estimated Glomerular Filt Rate > 60.0 mL/min (>60); Glucose 98 mg/dL (80-110); HEMOLYSIS < 15 (0-50); Potassium 3.9 mmol/L (3.4-5.1); Sodium 137 mmol/L (137-145)
--- NOTE | 2019-01-31 06:49 | PC.NURSE ---
Patient dozed intermittently, says he got some good sleep after the pain medication 2 Vicodin Q4h prn. LLE has been elevated throughout night. No stools. SR at rest, ST 120s while OOB. Protonix gtt infusing, scheduled abx given.
--- NOTE | 2019-01-31 08:45 | P.PN_ITS ---
Subjective Date Patient Seen: 01/31/19 Time Patient Seen: 08:44 Exam Vital Signs (past 8 hours): - 01/31/19 04:53 01/31/19 05:00 01/31/19 08:35 Temperature 98.0 F 96.8 F L Pulse Rate 86 88 Respiratory Rate 16 20 Blood Pressure 147/82 H 140/70 Pulse Oximetry 96 96 97 Fraction of Inspired Oxygen 21 Oxygen Delivery Method Room Air Oxygen Flow Rate 0 Narrative Exam Narrative: Patient is alert and oriented with stable vital signs Abdomen is soft and nontender Objective Labs Result Diagrams: 01/31/19 04:50 01/31/19 04:50 Labs: Laboratory Results - last 24 hr 01/30/19 01/30/19 01/31/19 10:06 11:37 04:50 WBC 19.1 H RBC 2.67 L Hgb 8.7 L 8.3 L Hct 25.9 L 25.2 L MCV 94.4 MCH 31.0 MCHC 32.9 RDW 15.8 H Plt Count 372 Neut % (Auto) 76.9 H Lymph % (Auto) 12.8 L [place] % (Auto) 8.8 Eos % (Auto) 1.0 L Baso % (Auto) 0.5 Neut # (Auto) 25235 H Lymph # (Auto) 2400 [place] # (Auto) 1700 H Eos # (Auto) 200 Baso # (Auto) 100 Sodium Potassium Chloride Carbon Dioxide BUN Creatinine Estimated GFR BUN/Creatinine Ratio Glucose Calcium Vancomycin Trough 8.3 L 01/31/19 04:50 WBC RBC Hgb Hct MCV MCH MCHC RDW Plt Count Neut % (Auto) Lymph % (Auto) [place] % (Auto) Eos % (Auto) Baso % (Auto) Neut # (Auto) Lymph # (Auto) [place] # (Auto) Eos # (Auto) Baso # (Auto) Sodium 137 Potassium 3.9 Chloride 106 Carbon Dioxide 24 BUN 10 Creatinine 0.80 Estimated GFR > 60.0 BUN/Creatinine Ratio 12.5 Glucose 98 Calcium 8.0 L Vancomycin Trough Assessment & Plan Assessment & Plan narrative: Patient has no further signs of gastrointestinal bleeding had 1 small bowel movement last night hemoglobin is stable actually has slightly increased without transfusion today it is 8.3. Plan is to stop the intravenous infusion of Protonix start oral Protonix 40 b.i.d. advance diet as tolerated continued treatment of his leg cellulitis per the hospitalist
[2019-01-31] MEDS: LOSARTAN 50 MG TABLET PO (09:16)
[2019-01-31] MEDS: SODIUM CHLORIDE 0.9% FLUSH 10 ML IV ×2 (09:18→20:15)
[2019-01-31] MEDS: VANCOMYCIN TROUGH 1 REQUEST MISC (13:12)
[2019-01-31 13:30] LABS: Vancomycin Trough 13.5 ug/mL (10-20)
--- NOTE | 2019-01-31 14:28 | PC.NURSE ---
pt with stable vs, afebrile, alert/oriented and tolerating diet advancement well no nausea - no bm but feels as if he will need to soon- ivf d/c'd other than abx- protonix changed to po bid rather than gtt- pt eval pending- gi symptoms resolved- pt questioning plan for lle cellulitis and continued antibiotic therapy
--- NOTE | 2019-01-31 16:25 | PT.IIE ---
Current Diagnoses Sepsis, unspecified organism (01/26/19) Cellulitis, unspecified (01/26/19) Surgery Performed Operation Date: 01/28/19 17:00 Actual Procedures p Esophagogastroduodenoscopy with Injection - Leon Diallo MD Operation Date: 01/30/19 08:30 <No data on this case meets the specified criteria> Surgical History (Last Reviewed 01/27/19 @ 03:34 by OSCAR Cadena) History of left inguinal hernia repair (Chronic) History of umbilical hernia repair (Chronic) Medical History (Last Reviewed 01/27/19 @ 03:34 by OSCAR Cadena) History of prostate cancer (Chronic) Hypertension (Chronic) Physical Therapy Inpatient Evaluation/Re-Eval M1 PT/OT-IP Prior Functional Status Start: 01/31/19 16:55 Freq: NEEDED Status: Active Protocol: Document 01/31/19 16:25 AB (Rec: 01/31/19 17:22 AB [id number]) Medical Review Prior Functional Status Medical History Reviewed Yes Communication able to make needs known Mobility and Gait pt stated that he is independent with all mobilities and ambulation without AD Social History Household Members spouse Living Arrangements Mobile home Number of Floors (Floors) One Floor Number of Stairs To Enter/Railing? 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 PT-IP Current Condition Start: 01/31/19 16:55 Freq: NEEDED Status: Active Protocol: Document 01/31/19 16:25 AB (Rec: 01/31/19 17:22 AB [id number]) Physical Therapy Current Condition Current Condition Evaluation Date 01/31/19 Treatment Diagnosis LLE cellulitis; difficulty in walking Onset Date 01/26/19 M3 PT-IP Subjective Start: 01/31/19 16:55 Freq: NEEDED Status: Active Protocol: Document 01/31/19 16:25 AB (Rec: 01/31/19 17:22 AB [id number]) Subjective Physical Therapy Visit Type Type Initial Evaluation Visit Start Time 16:25 Visit Stop Time 16:48 Total Visit Minutes 23 Number of ORNAMENTER Visits 0 Physical Therapy Visit Comments Patient Comments pt agreeable to do PT Therapy Pain Assessment Pain When Pain Assessed At Rest Pain Present Pain Present Pain Reported Location Left leg Intensity 6 Scale Used Numeric (1 - 10) Description Tightness Pain Management Techniques Re-positioning Timing of Activity with Medications M4 PT-IP Mobility and Gait Start: 01/31/19 16:55 Freq: NEEDED Status: Active Protocol: Document 01/31/19 16:25 AB (Rec: 01/31/19 17:22 AB [id number]) PT-Bed Mobility Assessment Supine to Sit Supine to Sit Standby Assistance Sit to Supine Sit to Supine Standby Assistance Scooting Scooting to Edge of Bed Standby Assistance PT-Transfer Assessment Sit to and From Stand Sit to and from Stand Standby Assistance Equipment Transfer Assistive Device Gait Belt Front Wheeled Walker Orthotic/Prosthetic Devices or Brace: No Gait Assessment Gait Gait Assistance Required: Standby Assistance Distance (Feet) 125 Able to Maintain Weight Bearing Status Yes During Gait Assistive Devices Assistive Device None Gait Belt Front Wheeled Walker Orthotic/Prosthetic Devices or Brace: No Gait Deviations General Gait Pattern Antalgic Decreased Stride Length Decreased Feet Clearance Factors Limiting Gait Function Factors Limiting Gait Function Decreased Activity Tolerance Decreased Strength Limited Range of Motion Pain Poor Balance Comments Gait Comments pt ambulated using FWW SBA 125 ft. pt able to ambulate in room without AD ~ 12 ft SBA. presents with antalgic gait. PT-Balance Assessment Sitting Balance and Reactions Static Sitting Balance Ability Good Dynamic Sitting Balance Ability Good Standing Balance and Reactions Static Standing Balance Ability Fair Dynamic Standing Balance Ability Fair Device Used without AD M5 PT-IP Objective Assessments Start: 01/31/19 16:55 Freq: NEEDED Status: Active Protocol: Document 01/31/19 16:25 AB (Rec: 01/31/19 17:22 AB [id number]) Orientation Orientation/Cognition Level of Alertness Alert Orientation Name Age Birthday Month Date Year Day of Week Place Situation Language Function Ability No Deficits Noted Safety Awareness Understands Safety Issues Memory Description No Deficits Noted Gross Range of Motion Lower Extremity ROM Assessment Left Impaired Impairments decrease L ankle DF Strength Lower Extremity Strength Assessment Within Functional Limits Coordination Assessment Gross Coordination Gross Coordination WNL Muscle Tone Muscle Tone WNL Yes M6 PT-IP Treatment Start: 01/31/19 16:55 Freq: NEEDED Status: Active Protocol: Document 01/31/19 16:25 AB (Rec: 01/31/19 17:22 AB [id number]) Physical Therapy Treatment Exercises Exercises Ankle Pumps Education Education Provided Safety M7 PT-IP Assessment and Plan Start: 01/31/19 16:55 Freq: NEEDED Status: Active Protocol: Document 01/31/19 16:25 AB (Rec: 01/31/19 17:22 AB [id number]) PT Summary Assessment and Plan Potential Rehabilitation Potential Good Status of Condition at Evaluation Stable Summary Impairments Pain ROM Strength Balance Sensation Bed Mobility Transfers Gait Activity Tolerance Assessment Summary pt requiring SBA with mobility . presents with difficulty with ambulation and at this time uses FWW. pt will likely progress during hospital stay . will complete stair climbing training prior to d/c . pt may go home when medically stable. Goals Bed Mobility Goal Independent Transfer Goal Independent Gait Goal Independent Gait Distance 250 Other Goals up/down 4 steps with R rail ascending SBA Days to Meet Goals 5 Frequency of Treatment Frequency Of Treatment Once a Day Treatment Plan Physical Therapy Treatment Plan Bed Mobility Training Transfer Training Gait Training Therapeutic Exercise Balance Retraining Discharge Planning Hot or Cold Pack Neuromuscular Re-ed Coordination Retraining Manual Therapy Other Recommendations and Next Treatment ambulation using SPC or Focus without AD Recommendations To Nursing Amount of Assist Needed Standby Assistance Discharge Recommendations PT Discharge Recommendations Home
--- NOTE | 2019-01-31 17:16 | PM.PN.1 ---
Subjective Date Patient Seen: 01/31/19 Interval history: Patient is 58-year-old male admitted with bleeding peptic ulcer and left lower leg cellulitis. He is not having any further rectal bleeding. He is not sure if the cellulitis looks better yet. Exam Vital Signs (past 8 hours): - 01/31/19 09:51 01/31/19 11:50 01/31/19 13:31 Temperature 99.1 F Pulse Rate 110 H Respiratory Rate 20 Blood Pressure 119/75 Pulse Oximetry 97 96 98 Fraction of Inspired Oxygen 21 Oxygen Delivery Method Room Air Oxygen Flow Rate 0 Narrative Exam Narrative: General: Alert and pleasant male in no acute distress Lungs: Breathing nonlabored Extremities: Right lower extremity without rash or edema. Left lower extremity is swollen below the knee with macular erythema extending from medial thigh down the calf and to the foot. There are large areas of unopened blistering and peeling skin on the lower calf. Objective Labs Result Diagrams: 01/31/19 04:50 01/31/19 04:50 Labs: Laboratory Results - last 24 hr 01/31/19 01/31/19 01/31/19 04:50 04:50 12:15 WBC 19.1 H RBC 2.67 L Hgb 8.3 L Hct 25.2 L MCV 94.4 MCH 31.0 MCHC 32.9 RDW 15.8 H Plt Count 372 Neut % (Auto) 76.9 H Lymph % (Auto) 12.8 L [place] % (Auto) 8.8 Eos % (Auto) 1.0 L Baso % (Auto) 0.5 Neut # (Auto) 01745 H Lymph # (Auto) 2400 [place] # (Auto) 1700 H Eos # (Auto) 200 Baso # (Auto) 100 Sodium 137 Potassium 3.9 Chloride 106 Carbon Dioxide 24 BUN 10 Creatinine 0.80 Estimated GFR > 60.0 BUN/Creatinine Ratio 12.5 Glucose 98 Calcium 8.0 L Vancomycin Trough 13.5 Assessment & Plan Assessment & Plan narrative: This is a 4-year-old male admitted with acute blood loss due to ulcer and also a severe left lower extremity cellulitis. 1. Acute blood-loss anemia, secondary to upper GI bleed, present on admission. Active but stabilized. -Patient reported significant alcohol consumption of 3-4 beers and sometimes 6-7 beers per night but not every night. He also takes Excedrin and Aleve (several hours apart) on a regular basis for pain. -Patient became increasingly tachycardic and had 2 melanotic bowel movements. Hemoglobin dropped from 10.0 to 7.8 (over 24 hours) and then to 6.8 in 6 hours. -etiology of blood loss likely secondary to upper GI ulcer from NSAIDs and EtOH. -Received 4 units PRBC total with current hemoglobin stabilized at 8.7. -Dr. Diallo performed EGD and found a large duodenal ulcer now status post epinephrine injection x3. Due to continued hgb stability he was not taken back for another EGD as planned. -continue pantoprazole 40 mg b.i.d.. 2. Sepsis, acute, present on admission. Resolved. -Sepsis criteria met including: tachypneic, tachycardic, leukocytosis (WBC 16.9), PCT (4.81), and JULIAN. -Early goal-directed therapy med including IV fluid resuscitation and broad-spectrum antibiotics. 3. Acute left lower extremity cellulitis, present on admission. Active. -cellulitis slow to improve with appearance of leg about the same since admission -Likely secondary to chronic venous stasis ulcer. -LLE U/S unremarkable for DVT. -Left femur and tibia-fibula XR unremarkable for fractures, dislocations, or suspicious bony lesions. No gas visualized within the soft tissues. -Blood cultures have no growth. Wound culture growing 3 gram-positive cocci colonies. -Continue vancomycin with dosing per pharmacy. Flagyl discontinued -Continue tylenol 650 mg every 6 hours as needed for mild pain and hydrocodone every 4 hours as needed for moderate to severe pain -wound care consult -consider switching to once daily daptomycin with PICC line which can be continued as outpatient if patient needs prolonged IV antibiotic 4. Acute hypovolemia, present on admission. Resolved. -no longer on IV fluids. 5. Acute kidney injury, present on admission. Resolved. -Baseline renal function is unknown. Now clearly acute in the setting of hypovolemia secondary to acute blood loss and cellulitis. -Continue to avoid nephrotoxic agents. 6. Transaminitis, acuity unclear but likely acute, present on admission. Resolving. -Patient has a history of moderate EtOH use and has significant cellulitic infection. -initial AST 291, ALT 165, Alk Phos 190, Lipase 290. 7. Essential hypertension, chronic, present on admission. Stable. -back on his routine losartan
--- NOTE | 2019-01-31 17:28 | P.PN_ITS ---
Subjective Date Patient Seen: 01/31/19 Interval history: Patient is 58-year-old male admitted with bleeding peptic ulcer and left lower leg cellulitis. He is not having any further rectal bleeding. He is not sure if the cellulitis looks better yet. Exam Vital Signs (past 8 hours): - 01/31/19 09:51 01/31/19 11:50 01/31/19 13:31 Temperature 99.1 F Pulse Rate 110 H Respiratory Rate 20 Blood Pressure 119/75 Pulse Oximetry 97 96 98 Fraction of Inspired Oxygen 21 Oxygen Delivery Method Room Air Oxygen Flow Rate 0 Narrative Exam Narrative: General: Alert and pleasant male in no acute distress Lungs: Breathing nonlabored Extremities: Right lower extremity without rash or edema. Left lower extremity is swollen below the knee with macular erythema extending from medial thigh down the calf and to the foot. There are large areas of unopened blistering and peeling skin on the lower calf. Objective Labs Result Diagrams: 01/31/19 04:50 01/31/19 04:50 Labs: Laboratory Results - last 24 hr 01/31/19 01/31/19 01/31/19 04:50 04:50 12:15 WBC 19.1 H RBC 2.67 L Hgb 8.3 L Hct 25.2 L MCV 94.4 MCH 31.0 MCHC 32.9 RDW 15.8 H Plt Count 372 Neut % (Auto) 76.9 H Lymph % (Auto) 12.8 L [place] % (Auto) 8.8 Eos % (Auto) 1.0 L Baso % (Auto) 0.5 Neut # (Auto) 01920 H Lymph # (Auto) 2400 [place] # (Auto) 1700 H Eos # (Auto) 200 Baso # (Auto) 100 Sodium 137 Potassium 3.9 Chloride 106 Carbon Dioxide 24 BUN 10 Creatinine 0.80 Estimated GFR > 60.0 BUN/Creatinine Ratio 12.5 Glucose 98 Calcium 8.0 L Vancomycin Trough 13.5 Assessment & Plan Assessment & Plan narrative: This is a 4-year-old male admitted with acute blood loss due to ulcer and also a severe left lower extremity cellulitis. 1. Acute blood-loss anemia, secondary to upper GI bleed, present on admission. Active but stabilized. -Patient reported significant alcohol consumption of 3-4 beers and sometimes 6-7 beers per night but not every night. He also takes Excedrin and Aleve (several hours apart) on a regular basis for pain. -Patient became increasingly tachycardic and had 2 melanotic bowel movements. Hemoglobin dropped from 10.0 to 7.8 (over 24 hours) and then to 6.8 in 6 hours. -etiology of blood loss likely secondary to upper GI ulcer from NSAIDs and EtOH. -Received 4 units PRBC total with current hemoglobin stabilized at 8.7. -Dr. Diallo performed EGD and found a large duodenal ulcer now status post epinephrine injection x3. Due to continued hgb stability he was not taken back for another EGD as planned. -continue pantoprazole 40 mg b.i.d.. 2. Sepsis, acute, present on admission. Resolved. -Sepsis criteria met including: tachypneic, tachycardic, leukocytosis (WBC 16.9), PCT (4.81), and JULIAN. -Early goal-directed therapy med including IV fluid resuscitation and broad- spectrum antibiotics. 3. Acute left lower extremity cellulitis, present on admission. Active. -cellulitis slow to improve with appearance of leg about the same since admiss ion -Likely secondary to chronic venous stasis ulcer. -LLE U/S unremarkable for DVT. -Left femur and tibia-fibula XR unremarkable for fractures, dislocations, or suspicious bony lesions. No gas visualized within the soft tissues. -Blood cultures have no growth. Wound culture growing 3 gram-positive cocci colonies. -Continue vancomycin with dosing per pharmacy. Flagyl discontinued -Continue tylenol 650 mg every 6 hours as needed for mild pain and hydrocodone every 4 hours as needed for moderate to severe pain -wound care consult -consider switching to once daily daptomycin with PICC line which can be continued as outpatient if patient needs prolonged IV antibiotic 4. Acute hypovolemia, present on admission. Resolved. -no longer on IV fluids. 5. Acute kidney injury, present on admission. Resolved. -Baseline renal function is unknown. Now clearly acute in the setting of hypovolemia secondary to acute blood loss and cellulitis. -Continue to avoid nephrotoxic agents. 6. Transaminitis, acuity unclear but likely acute, present on admission. Resolving. -Patient has a history of moderate EtOH use and has significant cellulitic infection. -initial AST 291, ALT 165, Alk Phos 190, Lipase 290. 7. Essential hypertension, chronic, present on admission. Stable. -back on his routine losartan
[2019-01-31] MEDS: HYDROCODONE/ACET 5/325 TABLET 1 TAB PO ×2 (20:15→21:42)
[2019-01-31] MEDS: PANTOPRAZOLE 40 MG TABLET PO (20:15)
[2019-02-01] VITALS (10 sets, daily range): BP systolic 123–160; BP diastolic 76–92; PULSE 94–110; RESP 15–20; TEMP 36.7–37.5; O2SAT 95–99
[2019-02-01] MEDS: VANCOMYCIN 300 ML 200 MG IV ×3 (04:15→21:11)
[2019-02-01] MEDS: HYDROCODONE/ACET 5/325 TABLET 2 TAB PO ×5 (04:15→21:17)
[2019-02-01] MEDS: SODIUM CHLORIDE 0.9% FLUSH 10 ML IV ×3 (04:16→21:12)
[2019-02-01] MEDS: PANTOPRAZOLE 40 MG TABLET PO ×2 (07:42→21:12)
[2019-02-01] MEDS: LOSARTAN 50 MG TABLET PO (08:09)
--- NOTE | 2019-02-01 08:46 | DI.US.S_ITS ---
PROCEDURE: US PERIPH VENOUS LOW EXTREM LT INDICATIONS: CELLULITIS TECHNIQUE: Real-time imaging, as well as color and pulse Doppler interrogation, were performed of the lower extremity deep veins from the inguinal ligament to the popliteal fossa. COMPARISON: None. FINDINGS: The common femoral, femoral and popliteal veins are normally compressible, and free of intraluminal thrombus. Color and pulse Doppler demonstrate normal phasic intraluminal flow. There is normal augmentation response to distal compression maneuver. IMPRESSION: No deep vein thrombosis of the left lower extremity. Dictated by: Renetta Mancuso M.D. on 02/01/2019 at 11:38 Approved by: Renetta Mancuso M.D. on 02/01/2019 at 11:38
--- NOTE | 2019-02-01 10:17 | CM.DPC ---
DCP Cont: Discussed patient at team rounds. Hospitalist, Dr. Phillips, indicated that his cellulitis is improving. Anticipate that he will be here for another day or 2. P: DCP to continue to follow closely and be available with any discharge concerns. Lea Castaneda RN/Activities Manager
[2019-02-01 10:38] LABS: Hematocrit 27.2 % (41-53); Hemoglobin 8.8 g/dL (13.5-17.5); Mean Corpuscular HGB Conc 32.5 % (30-36); Mean Corpuscular Volume 95.4 fL (80-100); Platelet Count 492 X10^3/uL (150-400); Red Blood Cell Count 2.85 X10^6/uL (4.5-5.9); Red Cell Distribution Width 15.7 % (11.6-14.8); White Blood Cell Count 16.5 X10^3/uL (4.5-11.0)
[2019-02-01 10:57] LABS: Alanine Aminotransferase 43 IU/L (21-72); Albumin 2.8 g/dL (3.5-5.0); Albumin Globulin Ratio 0.9 (1.0-2.8); Alkaline Phosphatase 88 U/L (38-126); Aspartate Aminotransferase 60 IU/L (17-59); BUN Creatinine Ratio 16.3 (6-22); Bilirubin Total 0.3 mg/dL (0.2-1.3); Blood Urea Nitrogen 13 mg/dL (9-20); Calcium 8.2 mg/dL (8.4-10.2); Carbon Dioxide 25 mmol/L (22-32); Chloride 105 mmol/L (98-107); Estimated Glomerular Filt Rate > 60.0 mL/min (>60); Globulin 3.1 g/dL (1.7-4.1); Glucose 126 mg/dL (80-110); HEMOLYSIS < 15 (0-50); Magnesium 2.2 mg/dL (1.6-2.3); Potassium 3.8 mmol/L (3.4-5.1); Sodium 138 mmol/L (137-145); Total Protein 5.9 g/dL (6.3-8.2)
--- NOTE | 2019-02-01 10:57 | P.PN_ITS ---
Subjective Date Patient Seen: 02/01/19 Interval history: Catrachito Peck is a 58-year-old male with past medical history significant for hypertension, prostate cancer, obesity, chronic right lower extremity venous stasis ulcer, and alcohol abuse who presented to ED as directed by his PCP for left leg cellulitis. Patient is resting in bed comfortably. He continues to have his left leg elevated. His left leg cellulitis seems to be improving. He has new swelling on the dorsum of his foot for which a lower extremity Doppler ultrasound was ordered to rule out DVT. Patient reports 1 further episode of small dark stool. His blood counts are stable and trending up. The patient denies headache, lightheadedness or dizziness, chest pain, shortness of breath, abdominal pain, nausea, vomiting, fever, or chills. He continues to have pain in left leg due to infection but is slowly improving as his infection improves. He is voiding and eliminating without difficulty. He is up ambulating without assistance. Exam Vital Signs (past 8 hours): - 02/01/19 05:19 02/01/19 07:30 Temperature 99.2 F Pulse Rate 94 H Respiratory Rate 20 Blood Pressure 147/88 H Pulse Oximetry 95 96 Fraction of Inspired Oxygen 21 Oxygen Delivery Method Room Air Oxygen Flow Rate 0 Narrative Exam Narrative: General: Middle-aged gentleman lying in bed and in no acute distress, well- developed, well-nourished, appropriately interactive. HEENT: Normocephalic, atraumatic. External ears without defect. Pupils equal, round, and reactive to light. Anicteric sclerae, moist conjunctivae, and no lid lag. Neck: Supple with full range of motion. No lymphadenopathy or thyromegaly. Cardiovascular: Regular rhythm and rate without murmurs, rubs, or gallops appr eciated Pulmonary: Clear to auscultation bilaterally without crackles, wheezes, or rhonchi. Normal respiratory effort with no use of accessory muscles. Abdomen: Soft, bowel sounds present, nontender, nondistended. No hepatosplenomegaly or masses appreciated. Extremities: No clubbing or cyanosis of right leg. Left leg circumferential cellulitis that is improving and retracting from margins outlined with chronic venous stasis ulcers on anterior medial aspect and posterior medial aspect of left leg. Skin: Normal temperature, turgor, and texture; no rash, ulcers, or subcutaneous nodules appreciated. Neurological: Cranial nerves grossly intact. Psychiatric: Normal mood and affect. Alert and oriented to person, place, and time. Objective Labs Result Diagrams: 02/01/19 10:20 02/01/19 10:20 Labs: Laboratory Results - last 24 hr 01/28/19 01/31/19 02/01/19 12:06 12:15 10:20 WBC 16.5 H RBC 2.85 L Hgb 8.8 L Hct 27.2 L MCV 95.4 MCH 31.0 MCHC 32.5 RDW 15.7 H Plt Count 492 H Vancomycin Trough 13.5 Crossmatch See Detail Assessment & Plan Assessment & Plan narrative: Catrachito Peck is a 58-year-old male with past medical history significant for hypertension, prostate cancer, obesity, chronic right lower extremity venous stasis ulcer, and alcohol abuse who presented to ED as directed by his PCP for left leg cellulitis. 1. Acute left lower extremity cellulitis, present on admission. Resolving. -Cellulitis is slowly improving with appearance of leg moderately improved since admission. Streaking resolved. -Likely secondary to chronic venous stasis ulcers. -Repeat LLE U/S negative for DVT. -Left femur and tibia-fibula XR unremarkable for fractures, dislocations, or suspicious bony lesions. No gas visualized within the soft tissues. -Blood cultures have no growth. Wound culture growing 3 gram-positive cocci colonies likely contaminate. -Continue tylenol 650 mg every 6 hours as needed for mild pain and hydrocodone every 4 hours as needed for moderate to severe pain -Wound care consult ordered but unavailable on weekend, therefore, pending. -Continue vancomycin with dosing per pharmacy. Flagyl discontinued.Will consider switching him to Zyvox 600 mg twice daily to finish course of PO antibiotics outpatient. 2. Acute blood-loss anemia, secondary to upper GI bleed, present on admission. Resolving. -Patient reported significant alcohol consumption of 3-4 beers and sometimes 6-7 beers per night but not every night. He also takes Excedrin and Aleve (several hours apart) on a regular basis for headache and leg pain, respectively. -Patient became increasingly tachycardic and had 2 melanotic bowel movements. Hemoglobin dropped from 10.0 to 7.8 (over 24 hours) and then to 6.8 in 6 hours. -Etiology of blood loss likely secondary to duodenal ulcer from NSAIDs and EtOH. -Received 4 units PRBC total with current hemoglobin stabilized at 8.8. -Dr. Diallo performed EGD and found a large duodenal ulcer now status post epinephrine injection x 3. Due to continued hgb stability he was not taken back for another EGD as planned. -Continue pantoprazole 40 mg twice daily. 3. Sepsis, acute, present on admission. Resolved. -Sepsis criteria met including: tachypneic, tachycardic, leukocytosis (WBC 16.9), PCT (4.81), and JULIAN. -Early goal-directed therapy med including IV fluid resuscitation and broad- spectrum antibiotics. 4. Acute hypovolemia, present on admission. Resolved. -No longer on IV fluids. 5. Acute kidney injury, present on admission. Resolved. -Baseline renal function is unknown. Now clearly acute in the setting of hypovolemia secondary to acute blood loss and cellulitis. -Continue to avoid nephrotoxic agents. 6. Transaminitis, acuity unclear but likely acute, present on admission. Resolving. -Patient has a history of moderate EtOH use and has significant cellulitic infection. -Initial AST 291, ALT 165, Alk Phos 190, Lipase 290. 7. Essential hypertension, chronic, present on admission. Stable. -Continue home losartan 50 mg daily. Disposition: Likely to discharge in several days once infectious markers significantly reduced and cellulitis improve and chronic venous stasis ulcers can be managed outpatient.
[2019-02-01 11:07] LABS: Anisocytosis 2+; Neutrophils Absolute Manual 12870 /uL (3000-5900); Poikilocytosis 1+; Polychromasia 1+; Total Cells Counted 100
[2019-02-01] MEDS: SODIUM CHLORIDE 0.9% 250 ML 21 ML IV (12:37)
--- NOTE | 2019-02-01 14:00 | PC.NURSE ---
Patient without major concerns or complaints today. Elevating left leg on 4 pillows in bed. Leg remains KOTA with some serous weeping noted at times. Area of large blistering and peeling skin noted to calf area with other dry and scabbed spots to leg up to inner left thigh, redness and swelling have stayed within marked borders. Pain management effective with norco as ordered for left leg pain. Awaiting wound consultation tomorrow. Repeat venous doppler completed. IV antibiotics continued as ordered.
--- NOTE | 2019-02-01 14:16 | PC.NURSE ---
TSF - arrived via wc from ICU, vanco infusing and completed, RFA iv flushed and SL after, pt tsf self to bed, arranged lle on 2 pillows with a pad for serous drainage from open areas medial l calf, redness has receded from the thigh markings some, more intensely red at mid calf with a separate ulcer medial l thigh, dusky discoloration around lower calf, ankle, pain 6 on scale 0//10 and is managed with consistent dosing norco tabs, was given x2 tabs prior to transfer, hr tachy 108, ra 99%, bp 156/89.
--- NOTE | 2019-02-01 15:13 | PT.IPTN ---
Current Diagnoses Sepsis, unspecified organism (01/26/19) Cellulitis, unspecified (01/26/19) Surgery Performed Operation Date: 01/28/19 17:00 Actual Procedures p Esophagogastroduodenoscopy with Injection - Leon Diallo MD Operation Date: 01/30/19 08:30 <No data on this case meets the specified criteria> Physical Therapy Treatment Note M2 PT-IP Current Condition Start: 01/31/19 16:55 Freq: NEEDED Status: Active Protocol: Document 01/31/19 16:25 AB (Rec: 01/31/19 17:22 AB [id number]) Physical Therapy Current Condition Current Condition Evaluation Date 01/31/19 Treatment Diagnosis LLE cellulitis; difficulty in walking Onset Date 01/26/19 M3 PT-IP Subjective Start: 01/31/19 16:55 Freq: NEEDED Status: Active Protocol: Document 02/01/19 15:12 CLB (Rec: 02/01/19 15:13 CLB [id number]) Subjective Physical Therapy Visit Type Type Patient Refusal Notes Pt refused stating he was up walking already and wanted to visit with company.
[2019-02-02] VITALS (9 sets, daily range): BP systolic 131–141; BP diastolic 83–85; PULSE 96–103; RESP 18–20; TEMP 36.6–37.3; O2SAT 95–98
[2019-02-02] MEDS: HYDROCODONE/ACET 5/325 TABLET 2 TAB PO ×5 (01:17→20:19)
[2019-02-02] MEDS: VANCOMYCIN 300 ML 200 MG IV (04:27)
[2019-02-02 05:47] LABS: Add Manual Diff / Slide Review NO; Basophils Absolute Auto 100 /uL (0-100); Basophils Percent Auto 0.5 % (0-2); Eosinophils Absolute Auto 100 /uL (0-450); Eosinophils Percent Auto 1.1 % (2-4); Hematocrit 24.1 % (41-53); Hemoglobin 8.3 g/dL (13.5-17.5); Lymphocytes Absolute Auto 1800 /uL (1100-4500); Lymphocytes Percent Auto 14.4 % (25-40); Mean Corpuscular HGB Conc 34.4 % (30-36); Mean Corpuscular Hemoglobin 32.2 PG (26-34); Mean Corpuscular Volume 93.6 fL (80-100); Monocytes Absolute Auto 1300 /uL (0-900); Monocytes Percent Auto 10.3 % (3-14); Neutrophils Absolute Auto 9000 /uL (1500-7000); Neutrophils Percent Auto 73.7 % (50-75); Platelet Count 467 X10^3/uL (150-400); Red Blood Cell Count 2.58 X10^6/uL (4.5-5.9); Red Cell Distribution Width 15.9 % (11.6-14.8); White Blood Cell Count 12.2 X10^3/uL (4.5-11.0)
[2019-02-02 05:58] LABS: Alanine Aminotransferase 41 IU/L (21-72); Albumin 2.6 g/dL (3.5-5.0); Albumin Globulin Ratio 0.9 (1.0-2.8); Alkaline Phosphatase 78 U/L (38-126); Aspartate Aminotransferase 56 IU/L (17-59); Bilirubin Total 0.3 mg/dL (0.2-1.3); Blood Urea Nitrogen 12 mg/dL (9-20); Calcium 8.2 mg/dL (8.4-10.2); Carbon Dioxide 25 mmol/L (22-32); Chloride 105 mmol/L (98-107); Estimated Glomerular Filt Rate > 60.0 mL/min (>60); Globulin 2.9 g/dL (1.7-4.1); Glucose 104 mg/dL (80-110); HEMOLYSIS < 15 (0-50); Magnesium 2.3 mg/dL (1.6-2.3); Potassium 3.9 mmol/L (3.4-5.1); Sodium 139 mmol/L (137-145); Total Protein 5.5 g/dL (6.3-8.2)
[2019-02-02] MEDS: PANTOPRAZOLE 40 MG TABLET PO ×2 (07:07→20:18)
[2019-02-02 07:19] LABS: Procalcitonin 0.27 ng/mL (<0.5)
[2019-02-02] MEDS: LOSARTAN 50 MG TABLET PO (08:39)
[2019-02-02] MEDS: SODIUM CHLORIDE 0.9% FLUSH 10 ML IV (08:39)
--- NOTE | 2019-02-02 09:50 | PT.IPTN ---
Current Diagnoses Sepsis, unspecified organism (01/26/19) Cellulitis, unspecified (01/26/19) Surgery Performed Operation Date: 01/28/19 17:00 Actual Procedures p Esophagogastroduodenoscopy with Injection - Leon Diallo MD Operation Date: 01/30/19 08:30 <No data on this case meets the specified criteria> Physical Therapy Treatment Note M2 PT-IP Current Condition Start: 01/31/19 16:55 Freq: NEEDED Status: Active Protocol: Document 01/31/19 16:25 AB (Rec: 01/31/19 17:22 AB [id number]) Physical Therapy Current Condition Current Condition Evaluation Date 01/31/19 Treatment Diagnosis LLE cellulitis; difficulty in walking Onset Date 01/26/19 M3 PT-IP Subjective Start: 01/31/19 16:55 Freq: NEEDED Status: Active Protocol: Document 02/02/19 09:01 LJ (Rec: 02/02/19 09:50 LJ [id number]) Subjective Physical Therapy Visit Type Type Treatment Note Visit Start Time 09:01 Visit Stop Time 09:37 Total Visit Minutes 36 Notes Pt in bed speaking with doctor . States he wants to go home today and is willing to walk to the stairs and practise so that he can leave later today. Doctor confirms that lhe is safe to d/c after seeing wound care M4 PT-IP Mobility and Gait Start: 01/31/19 16:55 Freq: NEEDED Status: Active Protocol: Document 02/02/19 09:01 LJ (Rec: 02/02/19 09:50 LJ [id number]) PT-Bed Mobility Assessment Supine to Sit Supine to Sit Independent Sit to Supine Sit to Supine Independent Scooting Scooting to Edge of Bed Independent PT-Transfer Assessment Sit to and From Stand Sit to and from Stand Independent Equipment Transfer Assistive Device Gait Belt Comments Mobility Comments Pt amabulated in hallway 400+ feet to stairs and back to room. Antalgic gait on LLE. Pt safe and aware of maintaining erect posture and slowing down movements. Pt's gait became less strenuous after ambulating for a couple minutes. Shortened stride length with a step through gait pattern. Gait Assessment Gait Gait Assistance Required: Standby Assistance Distance (Feet) 400 Able to Maintain Weight Bearing Status Yes During Gait Assistive Devices Assistive Device Gait Belt Gait Deviations General Gait Pattern Antalgic Decreased Stride Length Decreased Feet Clearance Factors Limiting Gait Function Factors Limiting Gait Function Decreased Activity Tolerance Decreased Strength Limited Range of Motion Pain Poor Balance Comments Gait Comments Pt ambulated 400+ feet w/o AD. Antalgic gait with decreased foot clearance and stride length. Step through pattern. No LOB but pt does have lateral movement of the trunk with antalgic gait. Stair Climbing Assessment Evaluation Level of Assist On Stairs Standby Assistance Devices Stair Climbing Assistive Devices Left Railing Right Railing Technique/Endurance Stair Climbing Direction Ascend and Descend Stair Climbing Technique Step Over Step Step to Step Number of Steps Climbed 3 Query Text: Stair Climbing Set # Repetitions (reps) 2 Comments Stair Climbing Comments Pt able to do step to and step through pattern. Advised to step to until there is less pain, weakness, and swelling in LLE. Pt had no LOB and demonstrated safety awareness on stairs. M5 PT-IP Objective Assessments Start: 01/31/19 16:55 Freq: NEEDED Status: Active Protocol: Document 01/31/19 16:25 AB (Rec: 01/31/19 17:22 AB [id number]) Orientation Orientation/Cognition Level of Alertness Alert Orientation Name Age Birthday Month Date Year Day of Week Place Situation Language Function Ability No Deficits Noted Safety Awareness Understands Safety Issues Memory Description No Deficits Noted Gross Range of Motion Lower Extremity ROM Assessment Left Impaired Impairments decrease L ankle DF Strength Lower Extremity Strength Assessment Within Functional Limits Coordination Assessment Gross Coordination Gross Coordination WNL Muscle Tone Muscle Tone WNL Yes M6 PT-IP Treatment Start: 01/31/19 16:55 Freq: NEEDED Status: Active Protocol: Document 01/31/19 16:25 AB (Rec: 01/31/19 17:22 AB [id number]) Physical Therapy Treatment Exercises Exercises Ankle Pumps Education Education Provided Safety M7 PT-IP Assessment and Plan Start: 01/31/19 16:55 Freq: NEEDED Status: Active Protocol: Document 02/02/19 09:01 LJ (Rec: 02/02/19 09:50 LJ [id number]) PT Summary Assessment and Plan Potential Rehabilitation Potential Good Status of Condition at Evaluation Stable Summary Impairments Pain ROM Strength Balance Gait Activity Tolerance Assessment Summary Pt with antalgic gait pattern able to ambulate 400+ feet in hallway with stair climbing step to and step through pattern. No AD required. Goals Bed Mobility Goal Independent Transfer Goal Independent Gait Goal Independent Gait Distance 250 Other Goals up/down 4 steps with R rail ascending SBA Days to Meet Goals 5 Treatment Plan Physical Therapy Treatment Plan Bed Mobility Training Transfer Training Gait Training Therapeutic Exercise Balance Retraining Discharge Planning Hot or Cold Pack Neuromuscular Re-ed Coordination Retraining Manual Therapy
--- NOTE | 2019-02-02 10:09 | CM.DPNOTE ---
Addendum entered by Belen Johnson LPN 02/02/19 12:56: Just received a message from [facility]: Zenaida that Dr. Phillips and wound RN Love Delgado that pt would NOT now be going home today; d/c tomorrow likely. Their documentation is not available at this point...will follow prn. Original Note: DCP: case received and pt with a d/c to home order. Dr. Phillips stated he would be ok to go after the wound care physician sees pt today. Dr. Phillips noted that he should be off work until February 09. Checked in with pt. He says his will be coming from [facility] to pick him up and since it is unclear [facility] will be here to see pt he will have her come later this afternoo. He says he will not need a note from Dr. Phillips re the work time off as she has updated his PCP: Dr. Macias who is also the physician for [facility]: pt's place of work. She will see him in clinic and then have him return when he is stable for same. Pt says he is very comfortable with that plan. P: home today as per above. Have left a message for [facility] to see when the physician expects to be here.
[2019-02-02] MEDS: LINEZOLID 600 MG TABLET PO ×2 (10:41→20:18)
--- NOTE | 2019-02-02 15:07 | P.PN_ITS ---
Subjective Date Patient Seen: 02/02/19 Time Patient Seen: 08:00 Interval history: Feeling well, reports melana resolved, most recent BM increasingly brown Tolerating diet without difficulty + flatus/+ bm overall feeling well No abd pain Exam Vital Signs (past 8 hours): - 02/02/19 08:00 02/02/19 08:30 02/02/19 12:23 Temperature 99.2 F Pulse Rate 102 H Respiratory Rate 18 Blood Pressure 141/83 H Pulse Oximetry 95 95 95 Fraction of Inspired Oxygen 21 Oxygen Delivery Method Room Air Oxygen Flow Rate 0 Narrative Exam Narrative: Looks well, breathing comfortably on RA RRR Abd soft nontender nondistended periphery warm Objective Labs Result Diagrams: 02/02/19 05:08 02/02/19 05:08 Labs: Laboratory Results - last 24 hr 02/02/19 02/02/19 02/02/19 05:08 05:08 05:08 WBC 12.2 H RBC 2.58 L Hgb 8.3 L Hct 24.1 L MCV 93.6 MCH 32.2 MCHC 34.4 RDW 15.9 H Plt Count 467 H Neut % (Auto) 73.7 Lymph % (Auto) 14.4 L [place] % (Auto) 10.3 Eos % (Auto) 1.1 L Baso % (Auto) 0.5 Neut # (Auto) 9000 H Lymph # (Auto) 1800 [place] # (Auto) 1300 H Eos # (Auto) 100 Baso # (Auto) 100 Sodium 139 Potassium 3.9 Chloride 105 Carbon Dioxide 25 BUN 12 Creatinine 0.80 Estimated GFR > 60.0 BUN/Creatinine Ratio 15.0 Glucose 104 Calcium 8.2 L Magnesium 2.3 Total Bilirubin 0.3 AST 56 ALT 41 Alkaline Phosphatase 78 Total Protein 5.5 L Albumin 2.6 L Globulin 2.9 Albumin/Globulin Ratio 0.9 L Procalcitonin 0.27 Assessment & Plan Assessment & Plan narrative: 58 yo man POD7 s/p EGD and injection of bleeding pyloric ulcer - no without evidence of bleeding. His Hct did drop somewhat from 27->24, but with out physiologic changes Rec: Repeat Hct this PM - anticipate regression to mean Continue 40mg BID PPI for 8 weeks then can reduce dose to 40 days x lifetime H pylori stool antigen ordered if + should undergo sequential abx therapy or H pylori with test of cure given lifethreatening perforation General surgery will sign off - OK to d/c if pm Hct is stable.
--- NOTE | 2019-02-02 15:28 | P.PN_ITS ---
Subjective Date Patient Seen: 02/02/19 Interval history: Catrachito Peck is a 58-year-old male with past medical history significant for hypertension, prostate cancer, obesity, chronic right lower extremity venous stasis ulcer, and alcohol abuse who presented to ED as directed by his PCP for left leg cellulitis. Patient is resting in bed comfortably. He continues to have his left leg elevated. His left leg cellulitis is regressing significantly. He continues to have pain in left leg due to infection but is slowly improving as his infection improves. His edema is improving as well and skin now appears wrinkled. His venous Doppler ultrasound was negative for DVT. Wound care is present both Dr. Myers and Love Johnson RN who plan to debride around chronic venous stasis ulcers/wound later today and place him Chantel Boot so he is able to discharge home tomorrow. He has not had any recurrent melena. He is tolerating a normal diet. His blood counts are stable. The patient denies headache, lightheadedness or dizziness, chest pain, shortness of breath, abdominal pain, nausea, vomiting, fever, or chills. He continues to have pain in left leg due to infection but is slowly improving as his infection improves. He is voiding and eliminating without difficulty. He is up ambulating without assistance. Exam Vital Signs (past 8 hours): - 02/02/19 08:00 02/02/19 08:30 02/02/19 12:23 Temperature 99.2 F Pulse Rate 102 H Respiratory Rate 18 Blood Pressure 141/83 H Pulse Oximetry 95 95 95 Fraction of Inspired Oxygen 21 Oxygen Delivery Method Room Air Oxygen Flow Rate 0 Narrative Exam Narrative: General: Older gentleman lying in bed and in no acute distress, well-developed, well-nourished, appropriately interactive. HEENT: Normocephalic, atraumatic. External ears without defect. Pupils equal, round, and reactive to light. Anicteric sclerae, moist conjunctivae, and no lid lag. Neck: Supple with full range of motion. No lymphadenopathy or thyromegaly. Cardiovascular: Regular rhythm and rate without murmurs, rubs, or gallops appreciated Pulmonary: Clear to auscultation bilaterally without crackles, wheezes, or r honchi. Normal respiratory effort with no use of accessory muscles. Abdomen: Soft, bowel sounds present, nontender, nondistended. No hepatosplenomegaly or masses appreciated. Extremities: No clubbing, cyanosis, or edema of right leg. Left leg circumferential cellulitis that is improving with edema and erythema retracting significantly from margins with now wrinkled skin. Upper thigh involvement has nearly resolved. No streaking. Chronic venous stasis ulcers on anterior medial aspect of left leg and posterior medial aspect of left ankle healing with green granulation tissue and flaky skin. Neurological: Cranial nerves grossly intact. Psychiatric: Normal mood and affect. Alert and oriented to person, place, and time. Objective Labs Result Diagrams: 02/02/19 15:15 02/02/19 05:08 Labs: Laboratory Results - last 24 hr 02/02/19 02/02/19 02/02/19 05:08 05:08 05:08 WBC 12.2 H RBC 2.58 L Hgb 8.3 L Hct 24.1 L MCV 93.6 MCH 32.2 MCHC 34.4 RDW 15.9 H Plt Count 467 H Neut % (Auto) 73.7 Lymph % (Auto) 14.4 L [place] % (Auto) 10.3 Eos % (Auto) 1.1 L Baso % (Auto) 0.5 Neut # (Auto) 9000 H Lymph # (Auto) 1800 [place] # (Auto) 1300 H Eos # (Auto) 100 Baso # (Auto) 100 Sodium 139 Potassium 3.9 Chloride 105 Carbon Dioxide 25 BUN 12 Creatinine 0.80 Estimated GFR > 60.0 BUN/Creatinine Ratio 15.0 Glucose 104 Calcium 8.2 L Magnesium 2.3 Total Bilirubin 0.3 AST 56 ALT 41 Alkaline Phosphatase 78 Total Protein 5.5 L Albumin 2.6 L Globulin 2.9 Albumin/Globulin Ratio 0.9 L Procalcitonin 0.27 Assessment & Plan Assessment & Plan narrative: Catrachito Peck is a 58-year-old male with past medical history significant for hypertension, prostate cancer, obesity, chronic right lower extremity venous stasis ulcer, and alcohol abuse who presented to ED as directed by his PCP for left leg cellulitis. 1. Acute left lower extremity cellulitis, present on admission. Resolving. -Cellulitis is significantly improved and retracting. Streaking resolved. Chronic venous stasis ulcers healing slowly. -Likely secondary to chronic venous stasis ulcers. -Repeat LLE U/S negative for DVT. -Left femur and tibia-fibula XR unremarkable for fractures, dislocations, or suspicious bony lesions. No gas visualized within the soft tissues. -Blood cultures have no growth to date. Wound culture growing 3 gram-positive cocci colonies customer response representative of contaminate/natural skin linda. -Continue tylenol 650 mg every 6 hours as needed for mild pain and hydrocodone every 4 hours as needed for moderate to severe pain. -Wound care consulted and plan to debride the patient's leg this afternoon and place in [place] boot so able to discharge likely tomorrow. We appreciate their time and care of the patient. -Discontinued vancomycin with dosing per pharmacy. Flagyl discontinued several days ago. Started Zyvox 600 mg twice daily to finish course of PO antibiotics outpatient. 2. Acute blood-loss anemia, secondary to upper GI bleed from duodenal ulcer, present on admission. Resolving. -Patient reported significant alcohol consumption of 3-4 beers and sometimes 6-7 beers per night but not every night. He also takes Excedrin and Aleve (several hours apart) on a regular basis for headache and leg pain, respectively. -Patient became increasingly tachycardic and had 2 melanotic bowel movements. Hemoglobin dropped from 10.0 to 7.8 (over 24 hours) and then to 6.8 in 6 hours. -Etiology of acute blood loss is secondary to duodenal ulcer from NSAIDs and EtOH. -Received 4 units PRBC total with current hemoglobin stabilized at 8.8. -Dr. Diallo performed EGD and found a large duodenal ulcer now status post epinephrine injection x 3. Due to continued hgb stability he was not taken back for another EGD as planned. -Continue pantoprazole 40 mg twice daily for 8 weeks total then 40 mg once daily thereafter per surgery. 3. Sepsis, acute, present on admission. Resolved. -Sepsis criteria met including: tachypneic, tachycardic, leukocytosis (WBC 16.9), PCT (4.81), and JULIAN. -Early goal-directed therapy med including IV fluid resuscitation and broad- spectrum antibiotics. 4. Acute hypovolemia, present on admission. Resolved. -No longer on IV fluids. 5. Acute kidney injury, present on admission. Resolved. -Baseline renal function is unknown. Now clearly acute in the setting of hypovolemia secondary to acute blood loss and cellulitis. -Continue to avoid nephrotoxic agents. 6. Transaminitis, acuity unclear but likely acute, present on admission. Resolved. -Patient has a history of moderate EtOH use and has significant cellulitic infection. -Initial AST 291, ALT 165, Alk Phos 190, Lipase 290. 7. Essential hypertension, chronic, present on admission. Stable. -Continue home losartan 50 mg daily. Disposition: Likely to discharge tomorrow on PO antibiotics with wound care clinic follow-up.
--- NOTE | 2019-02-02 17:30 | PCN_ITS ---
Procedures Date/Time Date of procedure: 02/02/19 Time of procedure: 17:30 General Procedure description: Debridement-wound # 1 left leg, proximal Etiology: Cellulitis Thickness: Full Thickness Physician: Anderson Myers MD Debridement: Surgical Timeout taken: Yes Pain control: Lidocaine 4% topical Pre debridement measurements: 15 centimeters x 11 centimeters x 0.1 centimeters Post debridement measurements: 15 centimeters x 11 centimeters x 0.1 centimeters % debrided: 100 Tissue and other material debrided: Epidermis, dermis, subcutaneous Devitalized tissue debrided: Exudate, fibrin, necrotic, slough Instrument: Blade, forceps, scissors Bleeding: Minimal Hemostasis achieved: Pressure Procedural Pain: 0/10 Postprocedural pain: 0/10 Response to treatment: Procedure was tolerated well Debridement-wound # 2 left leg, distal Etiology: Cellulitis Thickness: Full Thickness Physician: Anderson Myers MD Pain control: Lidocaine 4% topical Pre debridement measurements: 8 centimeters x 3.5 centimeters x 0.1 centimeters Post debridement measurements: 8 centimeters x 3.5 centimeters x 0.1 centimeters % debrided: 100 Tissue and other material debrided: Epidermis, dermis, subcutaneous Devitalized tissue debrided: Exudate, fibrin, necrotic, slough Instrument: Blade, forceps, scissors Bleeding: Minimal Hemostasis achieved: Pressure Procedural Pain: 0/10 Postprocedural pain: 0/10 Response to treatment: Procedure was tolerated well Signed By:<Electronically signed by Anderson Myers MD>02/12/19 [id number]
--- NOTE | 2019-02-02 18:49 | PC.NURSE ---
Wound care team debrided pt's L LE with scalpel and applied xeroform dressing and secured with bandage and tape. Pt reported pain subsided after procedure and was glad to have had vicodin just before the procedure. Now lying in bed with left ext elevated and reports feeling comfortable. Noted left foot was shiny and taut with edema and pedal pulse palpated.
[2019-02-03] VITALS (7 sets, daily range): BP systolic 140–145; BP diastolic 82–89; PULSE 86–95; RESP 16–18; TEMP 37.3–37.4; O2SAT 95–99
[2019-02-03] MEDS: HYDROCODONE/ACET 5/325 TABLET 2 TAB PO ×4 (00:24→12:50)
[2019-02-03 05:55] LABS: Add Manual Diff / Slide Review NO; Basophils Absolute Auto 100 /uL (0-100); Basophils Percent Auto 0.6 % (0-2); Eosinophils Absolute Auto 100 /uL (0-450); Eosinophils Percent Auto 1.3 % (2-4); Hematocrit 24.1 % (41-53); Hemoglobin 8.5 g/dL (13.5-17.5); Lymphocytes Absolute Auto 1600 /uL (1100-4500); Lymphocytes Percent Auto 15.6 % (25-40); Mean Corpuscular HGB Conc 35.1 % (30-36); Mean Corpuscular Hemoglobin 32.9 PG (26-34); Mean Corpuscular Volume 93.6 fL (80-100); Monocytes Absolute Auto 1000 /uL (0-900); Monocytes Percent Auto 9.4 % (3-14); Neutrophils Absolute Auto 7600 /uL (1500-7000); Neutrophils Percent Auto 73.1 % (50-75); Platelet Count 537 X10^3/uL (150-400); Red Blood Cell Count 2.57 X10^6/uL (4.5-5.9); Red Cell Distribution Width 15.3 % (11.6-14.8); White Blood Cell Count 10.4 X10^3/uL (4.5-11.0)
[2019-02-03] MEDS: PANTOPRAZOLE 40 MG TABLET PO (06:50)
--- NOTE | 2019-02-03 07:25 | P.DS_ITS ---
History of Present Illness Date Patient Seen: 02/03/19 Chief complaint: Leg Swollen Lf - Dr. Brewer send over Narrative: Written by Shira CORTESP: The patient is a 58-year-old male w/ PMHx of HTN, prostate cancer, obesity and prior RLE foot ulcer. Presented to the ED on 01/26/19 per recommendation of his PCP, Dori Brewer, out of concern for cellulitis. Patient reports sudden onset of left lower extremity redness, edema, erythema, calor, induration, and tenderness. There is drainage. Symptoms initially noted on evening (01/22/2019), progressively worsening over the next 3 days. Associated symptoms include chills and generalized malaise. Patient reports history of left lower extremity ulcer in the medial aspect of left heel one year ago. It has taken for the ulcer 3-4 months to heal, treated with topical antibiotics. Since the ulcer has healed patient has had some degree of inflammation and occasionally purulence, but no prior history of cellulitis or recurrence of the ulcer. Denies trauma or any other activity that may have caused an injury or break to the skin. Prior LLE ulcer. Patient works at a [employer]. Endorses exposure to stool pellets. Denies overt penetrating trauma or retained foreign body. Denies skin conditions such as eczema. No known gout or arthritis flare. No history of prior strep, staph, or other soft tissue infections. No known diabetes or prior radiation therapy. No reported insect bites. Discharge Providers Date of admission: 01/26/19 16:21 Discharge Date: 02/03/19 Primary care physician: Dori Brewer MD Consults: 01/26/19 20:54 Consult to Wound Care Routine Comment: Consulting Provider: [facility] 01/28/19 10:12 Consult to General Surgery Routine Comment: Consulting Provider: Leon Diallo Reason for consultation: GI bleed Has provider been notified: Yes 01/28/19 15:04 Consult to PICC Line RN Routine Comment: 01/31/19 12:39 Consult to Physical Therapy Evaluate & Treat Comment: Physician Instructions: Evaluate and Treat 01/31/19 17:28 Consult to Wound Care Routine Comment: Consulting Provider: [facility] Discharge provider: Carmenza Phillips DO Summary Discharge Diagnosis: 1. Acute left lower extremity cellulitis, present on admission. Resolving. 2. Upper GI bleed from duodenal ulcer with acute blood loss anemia, present on admission. Resolved. 3. Sepsis, acute, present on admission. Resolved. 4. Acute hypovolemia, present on admission. Resolved. 5. Acute kidney injury, present on admission. Resolved. 6. Transaminitis, acuity unclear but likely acute, present on admission. Resolved. 7. Essential hypertension, chronic, present on admission. Stable. Hospital Course: Catrachito Peck is a 58-year-old male with past medical history significant for hypertension, prostate cancer, obesity, chronic right lower extremity venous stasis ulcer, and alcohol abuse who presented to ED as directed by his PCP for left leg cellulitis. 1. Acute left lower extremity cellulitis, present on admission. Resolving. -Cellulitis continues to improve and retract significantly. Streaking resolved. Chronic venous stasis ulcers healing slowly. -Likely secondary to chronic venous stasis ulcers. -Repeat LLE U/S negative for DVT. -Left femur and tibia-fibula XR unremarkable for fractures, dislocations, or suspicious bony lesions. No gas visualized within the soft tissues. -Blood cultures have no growth to date. Wound culture growing 3 gram-positive cocci colonies dealer compliance representative of contaminate/natural skin linda. -Continued tylenol 650 mg every 6 hours as needed for mild pain and hydrocodone every 4 hours as needed for moderate to severe pain. -Wound care consulted and debrided the patient's leg/wound and plan continue to have him follow up outpatient. We appreciate wound cares time and care of the patient. -Discontinued IV vancomycin with dosing per pharmacy and Flagyl. Started Zyvox 600 mg twice daily to finish 14 day course of PO antibiotics outpatient. 2. Upper GI bleed from duodenal ulcer with acute blood loss anemia, present on admission. Resolved. -Patient reported significant alcohol consumption of 3-4 beers and sometimes 6-7 beers per night but not every night. He also takes Excedrin and Aleve (several hours apart) on a regular basis for headache and leg pain, respectively. -Patient became increasingly tachycardic and had several melanotic bowel movements on 01/27. Hemoglobin dropped from 10.0 to 7.8 (over 24 hours) and then to 6.8 in 6 hours. -Etiology of duodenal ulcer with acute blood loss is secondary to NSAIDs and EtOH use. -Received 4 units PRBC total with current hemoglobin stabilized at 8.5. -Dr. Diallo performed EGD and found a large duodenal ulcer now status post epinephrine injection x 3. Due to continued hgb stability he was not taken back for another EGD as planned. -Continued pantoprazole 40 mg twice daily for 8 weeks total then 40 mg once daily indefinitely, thereafter, per surgery. -Recommended considering iron and vitamin-C supplementation to replete iron stores per PCP. 3. Sepsis, acute, present on admission. Resolved. -Sepsis criteria met including: tachypneic, tachycardic, leukocytosis (WBC 16.9), PCT (4.81), and JULIAN. -Early goal-directed therapy med including IV fluid resuscitation and broad- spectrum antibiotics. 4. Acute hypovolemia, present on admission. Resolved. -No longer on IV fluids. 5. Acute kidney injury, present on admission. Resolved. -Baseline renal function is unknown and clearly acute in the setting of hypovolemia secondary to acute blood loss and cellulitis. -Avoided nephrotoxic agents. 6. Transaminitis, acuity unclear but likely acute, present on admission. Resolved. -Likely secondary to significant cellulitic infection and EtOH and acute as it resolved during admission. -Initial AST 291, ALT 165, Alk Phos 190, Lipase 290. -Recommended cutting back or abstaining from EtOH and possibly hepatology referral by PCP. 7. Essential hypertension, chronic, present on admission. Stable. -Continued home losartan 50 mg daily. Status at Discharge Functional status at discharge: independent ambulation Overall status at discharge: patient is progressing back to baseline Exam Vital Signs (past 8 hours): - 02/03/19 00:10 02/03/19 00:43 02/03/19 04:17 Temperature 99.4 F Pulse Rate 94 H Respiratory Rate 16 Blood Pressure 145/89 H Pulse Oximetry 95 95 99 02/03/19 04:23 Temperature 99.1 F Pulse Rate 95 H Respiratory Rate 18 Blood Pressure 142/87 H Pulse Oximetry 99 Fraction of Inspired Oxygen 21 Oxygen Delivery Method Room Air Oxygen Flow Rate 0 Narrative Exam Narrative: General: Older gentleman lying in bed and in no acute distress, well-developed, well-nourished, appropriately interactive. HEENT: Normocephalic, atraumatic. External ears without defect. Pupils equal, round, and reactive to light. Anicteric sclerae, moist conjunctivae, and no lid lag. Neck: Supple with full range of motion. No lymphadenopathy or thyromegaly. Cardiovascular: Regular rhythm and rate without murmurs, rubs, or gallops appreciated Pulmonary: Clear to auscultation bilaterally without crackles, wheezes, or rhonchi. Normal respiratory effort with no use of accessory muscles. Abdomen: Soft, bowel sounds present, nontender, nondistended. No hepatos plenomegaly or masses appreciated. Extremities: No clubbing, cyanosis, or edema of right leg. Left leg circumferential cellulitis that is improving with edema and erythema continuing to retract significantly from margins with now wrinkled skin. Upper thigh involvement has nearly resolved. No streaking. Chronic venous stasis ulcers on anterior medial aspect of left leg and posterior medial aspect of left ankle healing slowly. Neurological: Cranial nerves grossly intact. Psychiatric: Normal mood and affect. Alert and oriented to person, place, and time. Objective Labs Result Diagrams: 02/03/19 05:18 02/02/19 05:08 Labs: Laboratory Results - last 24 hr 02/02/19 02/03/19 15:15 05:18 WBC 10.4 RBC 2.57 L Hgb 8.5 L Hct 25.0 L 24.1 L MCV 93.6 MCH 32.9 MCHC 35.1 RDW 15.3 H Plt Count 537 H Neut % (Auto) 73.1 Lymph % (Auto) 15.6 L [place] % (Auto) 9.4 Eos % (Auto) 1.3 L Baso % (Auto) 0.6 Neut # (Auto) 7600 H Lymph # (Auto) 1600 [place] # (Auto) 1000 H Eos # (Auto) 100 Baso # (Auto) 100 Discharge Plan Discharge Plan Patient Disposition: Home Discharge comment: You are being discharged home. You have been prescribed Zyvox 600 mg twice daily for 6 additional days to complete a total 14 day antibiotic course. Please follow-up with the [facility] on 02/05/19 and 02/10/19 at your scheduled appointments. Please follow-up with your PCP next week at your scheduled appointment and have a CBC performed at that time to check your blood counts. Please avoid NSAIDs including: Aspirin, ibuprofen (Advil), Naprosyn/naproxen (Aleve), indomethacin, meloxicam, etc. You have been prescribed Protonix 40 mg twice daily for 8 weeks to let your ulcer heal and then 40 mg daily thereafter. You were also given a prescription for Vicodin to use sparingly and only as needed for pain. If you need additional pain medication please discuss this with your PCP. Discharge Med Rec/Prescriptions Prescriptions: New linezolid [Zyvox] 600 mg Tablet 600 mg PO BID Qty: 12 RF: 0 hydrocodone-acetaminophen 5-325 mg Tablet 1 tab PO Q4HR PRN (Reason: Pain, Moderate (4-6)) Qty: 10 RF: 0 pantoprazole 40 mg Tablet,Delayed Release (Dr/Ec) 40 mg PO BID Qty: 120 RF: 0 Continued losartan 50 mg Tablet 50 mg PO DAILY RF: 0 Vitamins 1 dose PO DAILY RF: 0 Other Ambulatory Orders: Complete Blood Count AUTO DIFF (Routine) Timeframe: 1 Week Location: Laboratory Ordered By: Carmenza Phillips Follow up/Referrals: Dori Brewer MD [Primary Care Provider] - 1 Week (appt:02/10 @ 10:[address] brewer if this appointment does not work please call megha and vernon ) Anderson Myers MD [Physician] - 3-5 Days (*appt:02/09 arrive @ 9:15 @ wound care center located @ [address]) Provider Discharge Instructions Diet: Diet as Tolerated, Low-fat, Low-sodium and Low-cholesterol Activity: Activity as tolerated Skin/Wound/Dressing Care Skin care: Please continue wound care as directed by wound care doctor and nurse Report to your healthcare provider any signs of infection, such as:: chills, fever, night sweats, increased pain, unusual drainage and unusual redness Other wound treatment: Please wear loose fitting shoes at all times until directed differently by wound care Visit Report/Discharge Packet Instructions: DI for Cellulitis -- Adult, How To Perform RICE (Rest, Ice, Compress, Elevate), DI for Wound Infection, Pantoprazole, Linezolid, Hydrocodone/Acetaminophen (By mouth) Discharge Data Primary Care Provider: Dori Brewer Attending Provider: Carmenza Phillips Admrupal Date/Time: 01/26/19 16:21
[2019-02-03] MEDS: LINEZOLID 600 MG TABLET PO (08:54)
[2019-02-03] MEDS: LOSARTAN 50 MG TABLET PO (08:56)
--- NOTE | 2019-02-03 11:21 | PT.IPTN ---
Current Diagnoses Sepsis, unspecified organism (01/26/19) Cellulitis, unspecified (01/26/19) Surgery Performed Operation Date: 01/28/19 17:00 Actual Procedures p Esophagogastroduodenoscopy with Injection - Leon Diallo MD Operation Date: 01/30/19 08:30 <No data on this case meets the specified criteria> Physical Therapy Treatment Note M2 PT-IP Current Condition Start: 01/31/19 16:55 Freq: NEEDED Status: Active Protocol: Document 01/31/19 16:25 AB (Rec: 01/31/19 17:22 AB [id number]) Physical Therapy Current Condition Current Condition Evaluation Date 01/31/19 Treatment Diagnosis LLE cellulitis; difficulty in walking Onset Date 01/26/19 M3 PT-IP Subjective Start: 01/31/19 16:55 Freq: NEEDED Status: Active Protocol: Document 02/03/19 11:14 SA (Rec: 02/03/19 11:21 SA [id number]) Subjective Physical Therapy Visit Type Type Treatment Note Visit Start Time 10:30 Visit Stop Time 10:55 Total Visit Minutes 25 Notes Pt to d/c home this afternoon after wound care session. Physical Therapy Visit Comments Patient Comments pt agreeable to do PT Patient Goals To go home. Therapy Pain Assessment Pain When Pain Assessed During Mobility Pain Present Pain Present Pain Reported Location Left leg Intensity 5 Scale Used Numeric (1 - 10) Description Pressure Tightness Pain Management Techniques Modification of Treatment Re-positioning Timing of Activity with Medications M4 PT-IP Mobility and Gait Start: 01/31/19 16:55 Freq: NEEDED Status: Active Protocol: Document 02/03/19 11:14 SA (Rec: 02/03/19 11:21 SA [id number]) PT-Bed Mobility Assessment Rolling Type of Rolling Roll to Right Level of Assist Independent Supine to Sit Supine to Sit Independent Sit to Supine Sit to Supine Independent Scooting Scooting to Edge of Bed Independent Scooting Up and Down in Bed Independent PT-Transfer Assessment Sit to and From Stand Sit to and from Stand Independent Equipment Transfer Assistive Device Gait Belt Orthotic/Prosthetic Devices or Brace: No Transfers Transfer Destination Bed Chair Transfer Technique Stand Step Pivot Transfer Ability Level of Assist Standby Assistance Comments Mobility Comments PT IND to SBA with bed mobility and transfers, does not use AD. NO LOB and pt steady on feet. Limits LLE WBing initially d/t pain. Gait Assessment Gait Gait Assistance Required: Standby Assistance Distance (Feet) 350 Able to Maintain Weight Bearing Status Yes During Gait Assistive Devices Assistive Device Gait Belt Gait Deviations General Gait Pattern Antalgic Decreased Stride Length Decreased Feet Clearance Factors Limiting Gait Function Factors Limiting Gait Function Decreased Activity Tolerance Decreased Strength Limited Range of Motion Pain Comments Gait Comments Gait training in halls with gradual increase in LLE WBing and step length. Pt c/o of feeling of tightness from edema in LLE. No LOB. PT-Balance Assessment Sitting Balance and Reactions Static Sitting Balance Ability Good Dynamic Sitting Balance Ability Good M5 PT-IP Objective Assessments Start: 01/31/19 16:55 Freq: NEEDED Status: Active Protocol: Document 01/31/19 16:25 AB (Rec: 01/31/19 17:22 AB [id number]) Orientation Orientation/Cognition Level of Alertness Alert Orientation Name Age Birthday Month Date Year Day of Week Place Situation Language Function Ability No Deficits Noted Safety Awareness Understands Safety Issues Memory Description No Deficits Noted Gross Range of Motion Lower Extremity ROM Assessment Left Impaired Impairments decrease L ankle DF Strength Lower Extremity Strength Assessment Within Functional Limits Coordination Assessment Gross Coordination Gross Coordination WNL Muscle Tone Muscle Tone WNL Yes M6 PT-IP Treatment Start: 01/31/19 16:55 Freq: NEEDED Status: Active Protocol: Document 02/03/19 11:14 (Rec: 02/03/19 11:21 [id number]) Physical Therapy Treatment Exercises Exercises Ankle Pumps Gluteal Sets Seated Knee Flexion/Extension Education Education Provided Safety Other Treatments Other Treatment Performed Discussed equipment needs for D/C and pt has needed equipment, does not use AD. M7 PT-IP Assessment and Plan Start: 01/31/19 16:55 Freq: NEEDED Status: Active Protocol: Document 02/03/19 11:14 SA (Rec: 02/03/19 11:21 [id number]) PT Summary Assessment and Plan Potential Rehabilitation Potential Good Status of Condition at Evaluation Stable Summary Assessment Summary Pt progressing well with functional mobility, pain is most limiting factor. To d/c home today after wound care treatment. Treatment Plan Physical Therapy Treatment Plan Bed Mobility Training Transfer Training Gait Training Therapeutic Exercise Balance Retraining Discharge Planning Hot or Cold Pack Neuromuscular Re-ed Coordination Retraining Manual Therapy Recommendations To Nursing Amount of Assist Needed Standby Assistance Discharge Recommendations PT Discharge Recommendations Home
--- NOTE | 2019-02-03 15:14 | CM.DPC ---
DCP: continued: Spoke today with Dr. Phillips in [employer]. 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 Love and Dr. Myers/Hodan stopped in and said wound was redressed and pt would be following up at [facility]. Pt had called his and she will be here after work this evening to take pt home.
--- NOTE | 2019-02-03 16:57 | PC.NURSE ---
Pt A&O, VSS, no pain. Pt given his discharge paperwork and belongings. No questions or concerns. Taken via wheelchair to personal vehicle.
== END 2019-02-03 16:00 | disposition home or self-care (01) | DRG 853 ==
LOC: ED 14:09 → AC 16:22 → ICU 01-29 15:19 → AC 02-01 14:07
PROVIDERS: Family Medicine; Nurse Practitioner Adult Health; Nurse Practitioner Gerontology; Surgery; Admitting Provider Internal Medicine; Emergency Provider Emergency Medicine; PCP Family Medicine; Visit Provider Internal Medicine
PROC: 0DJ08ZZ Inspection of Upper Intestinal Tract, Via Natural or Artificial Opening Endoscopic (ICD-10-PCS; CPT 43235; principal; 2019-01-28 17:00)
DX: A41.9 Sepsis, unspecified organism (principal); K26.4 Chronic or unspecified duodenal ulcer with hemorrhage; L03.116 Cellulitis of left lower limb; N17.9 Acute kidney failure, unspecified; D62 Acute posthemorrhagic anemia; L97.829 Non-pressure chronic ulcer of other part of left lower leg with unspecified severity; R65.20 Severe sepsis without septic shock; I10 Essential (primary) hypertension; Z87.891 Personal history of nicotine dependence; R00.0 Tachycardia, unspecified
CPT/HCPCS: 36415; 36430; 36591; 43243; 71045; 73552; 73590; 80048; 80053; 80202; 81003; 81015; 82550; 83605; 83690; 83735; 84145; 84484; 85014; 85018; 85025; 85610; 85730; 86677; 86850; 86900; 86901; 87040; 87070; 87075; 87077; 87086; 87147; 87186; 87205; 87797; 93005; 93971; 94760; 96361; 96365; 96366; 97110; 97116; 97161; 97530; 99252; 99285; P9016; C9113; J0171; J1644; J2250; J3010; J3370

== ENCOUNTER → 2019-02-09 09:16 | Outpatient (CLI) | payer OTHER, SELFPAY ==
[2019-01-26 16:50] VITALS: BMI 31.1
--- NOTE | 2019-02-12 12:50 | PM.PROC.1 ---
Procedures Date/Time Date of procedure: 02/02/19 Time of procedure: 17:30 General Procedure description: Debridement-wound # 1 left leg, proximal Etiology: Cellulitis Thickness: Full Thickness Physician: Anderson Myers MD Debridement: Surgical Timeout taken: Yes Pain control: Lidocaine 4% topical Pre debridement measurements: 15 centimeters x 11 centimeters x 0.1 centimeters Post debridement measurements: 15 centimeters x 11 centimeters x 0.1 centimeters % debrided: 100 Tissue and other material debrided: Epidermis, dermis, subcutaneous Devitalized tissue debrided: Exudate, fibrin, necrotic, slough Instrument: Blade, forceps, scissors Bleeding: Minimal Hemostasis achieved: Pressure Procedural Pain: 0/10 Postprocedural pain: 0/10 Response to treatment: Procedure was tolerated well Debridement-wound # 2 left leg, distal Etiology: Cellulitis Thickness: Full Thickness Physician: Anderson Myers MD Pain control: Lidocaine 4% topical Pre debridement measurements: 8 centimeters x 3.5 centimeters x 0.1 centimeters Post debridement measurements: 8 centimeters x 3.5 centimeters x 0.1 centimeters % debrided: 100 Tissue and other material debrided: Epidermis, dermis, subcutaneous Devitalized tissue debrided: Exudate, fibrin, necrotic, slough Instrument: Blade, forceps, scissors Bleeding: Minimal Hemostasis achieved: Pressure Procedural Pain: 0/10 Postprocedural pain: 0/10 Response to treatment: Procedure was tolerated well
== END ==
PROVIDERS: PCP Family Medicine; Visit Provider Family Medicine
DX: L03.116 Cellulitis of left lower limb (principal); I73.9 Peripheral vascular disease, unspecified; L97.821 Non-pressure chronic ulcer of other part of left lower leg limited to breakdown of skin
CPT/HCPCS: 93922; 97597; 97598; 99202; 99214

== ENCOUNTER → 2019-02-13 13:56 | Outpatient (CLI) | payer OTHER, SELFPAY ==
[2019-01-26 16:50] VITALS: BMI 31.1
== END ==
PROVIDERS: PCP Family Medicine; Visit Provider Family Medicine
DX: L97.821 Non-pressure chronic ulcer of other part of left lower leg limited to breakdown of skin (principal); L03.116 Cellulitis of left lower limb
CPT/HCPCS: 29581

== ENCOUNTER → 2019-02-17 11:05 | Outpatient (CLI) | payer OTHER, SELFPAY ==
[2019-01-26 16:50] VITALS: BMI 31.1
== END ==
PROVIDERS: PCP Family Medicine; Visit Provider Family Medicine
DX: Z48.817 Encounter for surgical aftercare following surgery on the skin and subcutaneous tissue (principal)
CPT/HCPCS: 99212

== ENCOUNTER → 2019-04-21 07:14 | Outpatient (CLI) | payer OTHER, SELFPAY ==
[2019-01-26 16:50] VITALS: BMI 31.1
[2019-04-21 09:16] LABS: Clostridium Difficile Tox PCR Negative for C. diff
== END ==
PROVIDERS: PCP Family Medicine; Visit Provider Family Medicine
DX: R19.7 Diarrhea, unspecified (principal)
CPT/HCPCS: 87045; 87493; 87899

== ENCOUNTER → 2019-07-03 14:56 | Outpatient (CLI) | payer OTHER, SELFPAY ==
[2019-01-26 16:50] VITALS: BMI 31.1
== END ==
PROVIDERS: PCP Family Medicine; Visit Provider Family Medicine
DX: R10.10 Upper abdominal pain, unspecified (principal); Z53.9 Procedure and treatment not carried out, unspecified reason

== ENCOUNTER → 2019-07-06 14:11 | Outpatient (CLI) | payer OTHER, SELFPAY ==
[2019-01-26 16:50] VITALS: BMI 31.1
--- NOTE | 2019-07-06 | DI.CT.S_ITS ---
PROCEDURE: CT ABDOMEN PELVIS W CON INDICATIONS: UPPER QUADRANT PAIN TECHNIQUE: After the administration of oral and intravenous contrast, 5 mm thick sections acquired from the diaphragms to the symphysis. 5 mm thick coronal and sagittal reformats were performed. For radiation dose reduction, the following was used: automated exposure control, adjustment of mA and/or kV according to patient size. COMPARISON: [facility], CT, ABDOMEN/PELVIS WITH CONTRAST, 10/26/2014, 8:45. FINDINGS: Image quality: Diagnostic. Mild motion artifact at the upper abdomen. ABDOMEN: Lung bases: Lung bases are clear. Heart size is normal. Solid organs: Liver is normal in size and enhancement. Stable subcentimeter hepatic hypodensities most compatible with benign cyst or hemangioma. Gallbladder is normal. Biliary system is non-dilated. Pancreas enhances normally. Spleen is normal in size and enhancement. No adrenal nodules. Kidneys are normal in size and enhancement, without hydronephrosis. Peritoneum and bowel: Stomach, small bowel, and colon loops are normal in caliber and wall thickness. No free fluid or air. The appendix is normal. Nodes and vessels: No retroperitoneal or mesenteric adenopathy. The infrarenal IVC is collapsed. No AAA. Mild calcified atherosclerotic plaque. Miscellaneous: No ventral hernias. PELVIS: Genitourinary: The prostate gland is surgically absent. Urinary bladder is unremarkable. Miscellaneous: Probable prior left inguinal hernia repair. Prominent and abnormal shaped left inguinal nodes (), increased. These may be due to disrupted lymphatics from prior inguinal hernia repair. Prominent left external iliac node measuring 1.6 x 1.2 cm, (), previously 1.1 x 0.7 cm on 10/26/2014. Small pelvic sidewall nodes are similar in size. Bones: No suspicious bony lesions. Extensive lumbar spine degenerative change. No vertebral body compression fractures. IMPRESSION: 1. Prostate gland is surgically absent. 2. Indeterminate left external iliac node. Few mildly prominent left inguinal nodes. 3. No sclerotic osseous metastases. Dictated by: Juan Bryson M.D. on 07/06/2019 at 16:54 Approved by: Juan Bryson M.D. on 07/06/2019 at 17:04
[2019-07-06 14:46] LABS: Blood Urea Nitrogen 25 mg/dL (9-20); Estimated Glomerular Filt Rate > 60.0 mL/min (>60)
== END ==
PROVIDERS: PCP Family Medicine; Visit Provider Family Medicine
DX: R10.12 Left upper quadrant pain (principal); M47.816 Spondylosis without myelopathy or radiculopathy, lumbar region; Z90.79 Acquired absence of other genital organ(s)
CPT/HCPCS: 36415; 74177; 82565; 84520; Q9967

== ENCOUNTER 2020-08-15 12:22 | Inpatient (IN) | payer OTHER, SELFPAY ==
[2019-01-26 16:50] VITALS: BMI 31.1
[2020-08-15] VITALS (14 sets, daily range): BP systolic 131–183; BP diastolic 70–100; PULSE 74–114; RESP 14–25; TEMP 37.5–39.4; O2SAT 85–96; BMI 32.8
--- NOTE | 2020-08-15 12:56 | ED_ITS ---
HPI - Extremity Injury (Lower) General Chief Complaint: Extremity Injury, Lower Stated Complaint: Cellulitis Left Leg Time Seen by Provider: 08/15/20 12:43 Source: patient Mode of arrival: Ambulatory Limitations: no limitations History of Present Illness HPI Narrative: 60-year-old male sent to the emergency department by his primary provider for concerns of sepsis/lower extremity cellulitis. Approximately 1 year ago patient had a cellulitis to his left lower extremity for which is reported that he had sepsis secondary to this. Was admitted to the hospital and had several days of IV antibiotics for being sent home on oral antibiotics. He reports that the redness in his left lower extremity started in the past 24 hours. No chest pain or shortness of breath. Did have a fever at home. Took a Tylenol prior to going to his primary provider. His primary provider stated that he had a temperature 102?. No new trauma. No new exposures. Has not tried anything for symptoms of for the Tylenol prior to arrival. Related Data Home Medications Medication Instructions Recorded Confirmed Vitamins 1 dose PO DAILY 01/26/19 08/15/20 losartan 50 mg PO DAILY 01/26/19 08/15/20 gentamicin 1 applic TOPICAL PRN PRN 08/15/20 08/15/20 Previous Rx's Medication Instructions Recorded pantoprazole 40 mg PO BID #120 tab 02/03/19 Allergies Allergy/AdvReac Type Severity Reaction Status Date / Time Penicillins [PENICILLINS] Allergy Unknown uncertain Verified 08/15/20 12:34 Review of Systems Constitutional Constitutional: Reports fever(s) Cardiovascular Cardiovascular: Denies chest pain and Denies dyspnea Respiratory Respiratory: Denies dyspnea Gastrointestinal Gastrointestinal: Denies abdominal pain Genitourinary Genitourinary: Denies dysuria Genitourinary: Denies dysuria Musculoskeletal Musculoskeletal: Denies myalgias Integumentary/Breasts Skin/Breast: Denies lesions and Denies rash Hematologic/Lymphatic Hematologic/Lymphatic: Denies easy bleeding and Denies easy bruising Allergic/Immunologic Allergic/Immunologic: Denies urticaria Patient History Medical History History of prostate cancer Hypertension Surgical History History of left inguinal hernia repair History of umbilical hernia repair Family History Mother No known health problems Father No known health problems Social History household members: spouse Smoking Status: Former smoker Smoking Status: Former smoker alcohol intake frequency: 3 or more drinks per day Substance Use Type: does not use Exam Initial Vital Signs Initial Vital Signs: Vital Signs Temperature 99.5 F 08/15/20 12:34 Pulse Rate 112 H 08/15/20 12:34 Respiratory Rate 14 08/15/20 12:34 Blood Pressure 183/100 H 08/15/20 12:34 Pulse Oximetry 96 08/15/20 12:34 Const General: cooperative and comfortable HENMT Head: normal to inspection and normocephalic Resp Effort & Inspection: normal respiratory effort Auscultation: clear to auscultation bilaterally Cardio Rate: regular rate Rhythm: regular rhythm Pulses: dorsalis pedis present on the left Skin Other: Patient with redness to the left lower extremity from his ankle to just distal to the knee with streaking up proximal to the knee. Circumferential redness. No vesicles. There is a small 1 cm round area of ulceration which patient states has been there since his last episode of cellulitis. Neuro General: patient alert, patient awake and patient oriented x3 Cognition: normal cognition Speech: speech normal Extrem General: normal to inspection and capillary refill normal Psych Appearance: grossly normal and well kempt Course Orders Ordered: ED Orders 08/15/20 12:45 EKG-12 Lead Stat 08/15/20 13:03 COVID19 Stat Complete Blood Count AUTO DIFF Stat Comprehensive Metabolic Panel Stat Lactate (Lactic Acid) Stat Lipase Stat Procalcitonin Stat 08/15/20 13:32 US periph venous low extrem lt Stat 08/15/20 13:35 Blood Culture Stat Acetaminophen (Acetaminophen 325 Mg Tablet) 650 mg PO Q6HR PRN PRN Reason: Fever/Mild Pain (1-3) Last Admin: 08/15/20 17:38 Dose: 325 mg Documented by: TAMARA Hydrocodone Bitart/Acetaminophen (Hydrocodone/Acet 5/325 Tablet) 1 tab PO Q4HR PRN PRN Reason: Pain, Moderate (4-6) Last Admin: 08/15/20 17:37 Dose: 1 tab Documented by: TAMARA Al Hydrox/Mg Hydrox/Simethicone (Mag Hydrox/Alum/Simeth 30 Ml Udc) 30 ml PO Q6HR PRN PRN Reason: Dyspepsia Bisacodyl (Bisacodyl 10 Mg Supp) 10 mg UT DAILY PRN PRN Reason: Constipation Calcium Carbonate (Calcium Carbonate 500 Mg Tab) 1,000 mg PO Q4HR PRN PRN Reason: Dyspepsia Docusate Sodium (Docusate 100 Mg Capsule) 100 mg PO BID [facility] Enoxaparin Sodium (Enoxaparin 40 Mg/0.4 Ml Syringe) 40 mg SUBCUT DAILY [facility] Sodium Chloride (Normal Saline 0.9%) 1,000 mls @ 125 mls/hr IV CONT DK Last Admin: 08/15/20 13:39 Dose: 125 mls/hr Documented by: DELMISAPO Vancomycin HCl (Vancomycin) 1,250 mg in 250 mls @ 250 mls/hr IV Q12H [facility] Losartan Potassium (Losartan 50 Mg Tablet) 50 mg PO DAILY [facility] Naloxone HCl (Naloxone 0.4 Mg/Ml Vial) 0.2 mg IV Q2MIN PRN PRN Reason: Opiate Reversal Ondansetron HCl (Ondansetron 4 Mg/2 Ml Inj) 4 mg IV Q8HR PRN PRN Reason: Nausea And Vomiting Pantoprazole Sodium (Pantoprazole 40 Mg Tablet) 40 mg PO 0700,2100 [facility] Vancomycin HCl (Vancomycin Trough) 1 request MISC NOW ONE Stop: 08/17/20 11:31 Discontinued Medications Vancomycin HCl (Vancomycin) 1,000 mg in 200 mls @ 200 mls/hr IV NOW ONE Stop: 08/15/20 13:54 Last Admin: 08/15/20 13:39 Dose: 200 mls/hr Documented by: SCANAPO Vancomycin HCl (Vancomycin Per Pharmacy) 1 request MISC NOW ONE Stop: 08/15/20 17:14 Vital Signs Vital signs: Vital Signs - 8 hr 08/15/20 12:34 08/15/20 12:51 08/15/20 13:00 Temperature 99.5 F Pulse Rate 112 H 114 H 74 Respiratory Rate 14 Blood Pressure 183/100 H Pulse Oximetry 96 94 85 L 08/15/20 13:30 08/15/20 14:00 Temperature Pulse Rate 106 H 100 H Respiratory Rate Blood Pressure Pulse Oximetry 95 95 MDM - Extremity Injury (Lower) Medical Records Attestation: I reviewed the patient's medical records. Lab Data Attestation: I reviewed the patient's lab results. Result diagrams: 08/15/20 13:03 08/15/20 17:05 Labs: Lab Results 08/15/20 08/15/20 08/15/20 Range/Units 13:03 13:03 13:03 WBC 15.0 H (4.5-11.0) X10^3/uL RBC 4.37 L (4.5-5.9) X10^6/uL Hgb 14.6 (13.5-17.5) g/dL Hct 42.3 (41-53) % MCV 96.8 (80-100) fL MCH 33.5 (26-34) PG MCHC 34.6 (30-36) % RDW 13.0 (11.6-14.8) % Plt Count 158 (150-400) X10^3/uL Neut % (Auto) 92.9 H (50-75) % Lymph % (Auto) 3.6 L (25-40) % [place] % (Auto) 3.1 (3-14) % Eos % (Auto) 0.0 L (2-4) % Baso % (Auto) 0.4 (0-2) % Neut # (Auto) 83212 H (6698-6079) /uL Lymph # (Auto) 500 L (5806-1522) /uL [place] # (Auto) 500 (0-900) /uL Eos # (Auto) 0 (0-450) /uL Baso # (Auto) 100 (0-100) /uL Sodium 132 L (137-145) mmol/L Potassium 3.5 (3.4-5.1) mmol/L Chloride 100 (98-107) mmol/L Carbon Dioxide 23 (22-32) mmol/L BUN 17 (9-20) mg/dL Creatinine 1.01 (0.66-1.25) mg/dL Estimated GFR > 60.0 (>60) mL/min BUN/Creatinine Ratio 16.8 (6-22) Glucose 127 H (80-110) mg/dL Lactate (0.7-2.1) mmol/L Calcium 9.2 (8.4-10.2) mg/dL Total Bilirubin 1.1 (0.2-1.3) mg/dL AST 52 (17-59) IU/L ALT 24 (<50) IU/L Alkaline Phosphatase 66 (38-126) U/L Total Protein 7.7 (6.3-8.2) g/dL Albumin 4.3 (3.5-5.0) g/dL Globulin 3.4 (1.7-4.1) g/dL Albumin/Globulin Ratio 1.3 (1.0-2.8) Lipase (23-300) U/L Procalcitonin 11.98 H (<0.5) ng/mL COVID-19 PCR (Negative) 08/15/20 08/15/20 08/15/20 Range/Units 13:03 13:03 13:03 WBC (4.5-11.0) X10^3/uL RBC (4.5-5.9) X10^6/uL Hgb (13.5-17.5) g/dL Hct (41-53) % MCV (80-100) fL MCH (26-34) PG MCHC (30-36) % RDW (11.6-14.8) % Plt Count (150-400) X10^3/uL Neut % (Auto) (50-75) % Lymph % (Auto) (25-40) % [place] % (Auto) (3-14) % Eos % (Auto) (2-4) % Baso % (Auto) (0-2) % Neut # (Auto) (5454-4036) /uL Lymph # (Auto) (5866-8434) /uL [place] # (Auto) (0-900) /uL Eos # (Auto) (0-450) /uL Baso # (Auto) (0-100) /uL Sodium (137-145) mmol/L Potassium (3.4-5.1) mmol/L Chloride (98-107) mmol/L Carbon Dioxide (22-32) mmol/L BUN (9-20) mg/dL Creatinine (0.66-1.25) mg/dL Estimated GFR (>60) mL/min BUN/Creatinine Ratio (6-22) Glucose (80-110) mg/dL Lactate 1.1 (0.7-2.1) mmol/L Calcium (8.4-10.2) mg/dL Total Bilirubin (0.2-1.3) mg/dL AST (17-59) IU/L ALT (<50) IU/L Alkaline Phosphatase (38-126) U/L Total Protein (6.3-8.2) g/dL Albumin (3.5-5.0) g/dL Globulin (1.7-4.1) g/dL Albumin/Globulin Ratio (1.0-2.8) Lipase 58 (23-300) U/L Procalcitonin (<0.5) ng/mL COVID-19 PCR Negative (Negative) Imaging Data US - DVT: Radiologist's Impression: [address] [id number] ReportSigned Patient: Catrachito Peck WMR#: [id number]: [id number]:[id number]/Sex: 60 / MDate of Service: 08/15/20Loc: EDAccession Number: [id number] Procedure: US periph venous low extrem lt Ordering Provider: Cortez Ramírez D.O. PROCEDURE: US PERIPH VENOUS LOW EXTREM LT INDICATIONS: CELLULITIS TECHNIQUE: Real-time imaging, as well as color and pulse Doppler interrogation, were performed of the lower extremity deep veins from the inguinal ligament to the popliteal fossa. COMPARISON: None. FINDINGS: The common femoral, femoral and popliteal veins are normally compressible, and free of intraluminal thrombus. Color and pulse Doppler demonstrate normal phasic intraluminal flow. There is normal augmentation response to distal compression maneuver. IMPRESSION: No sonographic evidence of thrombophlebitis or DVT. Dictated by: Zana Montes De Oca M.D. on 08/15/2020 at 13:35 Approved by: Zana Montes De Oca M.D. on 08/15/2020 at 13:35 ECG Data Attestation: I personally reviewed and interpreted this ECG as follows: Interpretation: Sinus tachycardia Ventricular rate of 107 Normal axis Normal QRS Normal QTC Nonspecific ST T wave changes MDM Narrative Medical decision making narrative: Patient is afebrile with did take Tylenol prior to arrival. Does have a leukocytosis. Left lower extremities consistent with cellulitis. Low suspicion for compartment syndrome. His left lower extremity DVT ultrasound is unremarkable. Given the fact that his symptoms have presented within the past 36 hours the extent of the symptoms that he is having a do feel that admission for IV antibiotics is warranted. I discussed the case with Dr. bedoya with Internal Medicine who will admit. Discussed the admission with the patient. He expressed understanding and agreement. He was given vancomycin here in the emergency department. He was not hypotensive. Not altered. Will hold on the 30 cc/kilos of fluids secondary to this. Discharge Plan Departure Patient Disposition: Admitted as Observation Clinical Impression: Cellulitis Admit Date/Time: 08/15/20 14:22 Admit Provider: Antoinette Bedoya
[2020-08-15 13:12] LABS: Add Manual Diff / Slide Review NO; Basophils Absolute Auto 100 /uL (0-100); Basophils Percent Auto 0.4 % (0-2); Eosinophils Absolute Auto 0 /uL (0-450); Hematocrit 42.3 % (41-53); Hemoglobin 14.6 g/dL (13.5-17.5); Lymphocytes Absolute Auto 500 /uL (1100-4500); Lymphocytes Percent Auto 3.6 % (25-40); Mean Corpuscular HGB Conc 34.6 % (30-36); Mean Corpuscular Hemoglobin 33.5 PG (26-34); Mean Corpuscular Volume 96.8 fL (80-100); Monocytes Absolute Auto 500 /uL (0-900); Monocytes Percent Auto 3.1 % (3-14); Neutrophils Absolute Auto 13900 /uL (1500-7000); Neutrophils Percent Auto 92.9 % (50-75); Platelet Count 158 X10^3/uL (150-400); Red Blood Cell Count 4.37 X10^6/uL (4.5-5.9)
[2020-08-15 13:28] LABS: Alanine Aminotransferase 24 IU/L (<50); Albumin 4.3 g/dL (3.5-5.0); Albumin Globulin Ratio 1.3 (1.0-2.8); Alkaline Phosphatase 66 U/L (38-126); Aspartate Aminotransferase 52 IU/L (17-59); BUN Creatinine Ratio 16.8 (6-22); Bilirubin Total 1.1 mg/dL (0.2-1.3); Blood Urea Nitrogen 17 mg/dL (9-20); Calcium 9.2 mg/dL (8.4-10.2); Carbon Dioxide 23 mmol/L (22-32); Chloride 100 mmol/L (98-107); Estimated Glomerular Filt Rate > 60.0 mL/min (>60); Globulin 3.4 g/dL (1.7-4.1); Glucose 127 mg/dL (80-110); HEMOLYSIS < 15 (0-50); Potassium 3.5 mmol/L (3.4-5.1); Sodium 132 mmol/L (137-145); Total Protein 7.7 g/dL (6.3-8.2)
[2020-08-15 13:29] LABS: Lactate (Lactic Acid) 1.1 mmol/L (0.7-2.1); Lipase 58 U/L (23-300)
--- NOTE | 2020-08-15 13:32 | DI.US.S_ITS ---
PROCEDURE: US PERIPH VENOUS LOW EXTREM LT INDICATIONS: CELLULITIS TECHNIQUE: Real-time imaging, as well as color and pulse Doppler interrogation, were performed of the lower extremity deep veins from the inguinal ligament to the popliteal fossa. COMPARISON: None. FINDINGS: The common femoral, femoral and popliteal veins are normally compressible, and free of intraluminal thrombus. Color and pulse Doppler demonstrate normal phasic intraluminal flow. There is normal augmentation response to distal compression maneuver. IMPRESSION: No sonographic evidence of thrombophlebitis or DVT. Dictated by: Zana Montes De Oca M.D. on 08/15/2020 at 13:35 Approved by: Zana Montes De Oca M.D. on 08/15/2020 at 13:35
[2020-08-15] MEDS: SODIUM CHLORIDE 0.9% 1,000 ML 125 ML IV ×2 (13:39→21:26)
[2020-08-15] MEDS: VANCOMYCIN 1,000 MG/200 ML PIGGYBACK 200 MG IV (13:39)
[2020-08-15 13:50] LABS: Procalcitonin 11.98 ng/mL (<0.5)
[2020-08-15 14:05] LABS: COVID19 -Nasal RAPID Negative (Negative)
--- NOTE | 2020-08-15 14:53 | PC.NURSE ---
Assumed care of patient. VS stable, low grade temp 99.6. Outlined LLE erythema. Vanco complete, NS infusing at 125cc/hr in right wrist. Patient describes tenderness with palpitation. Warmth noted. Pulses equal. Patient denies pain. Call light in reach. Patient verbalized understanding on fall precautions. No history of fall. bedside.
--- NOTE | 2020-08-15 16:59 | PM.HP.1 ---
History of Present Illness History of Present Illness Date Patient Seen: 08/15/20 Chief complaint: Cellulitis Left Leg Narrative: Patient is a 60-year-old male with a history of hypertension, upper GI bleed, obesity, with a history of left lower extremity cellulitis previously who underwent debridement. The patient went to bed normal last night. He woke up this morning with swelling redness and warmth of the left lower extremity. He was sent in by his primary care provider to the emergency room for evaluation. In the emergency room he was diagnosed with left lower extremity cellulitis[place] [address]. His lactate was normal at 1.1. The patient had an elevated procalcitonin of 11. He is admitted to the hospital at this time for inpatient treatment of cellulitis. Patient was hospitalized in January of 2019. He had left lower extremity cellulitis. He initially was treated with vancomycin and Flagyl in ultimately discharged home on Zyvox. He has had no further episodes since 2019. Patient History Medical History History of prostate cancer Hypertension Surgical History History of left inguinal hernia repair History of umbilical hernia repair Family & Social History Family History Mother No known health problems Father No known health problems Social History: household members spouse Prior Living Arrangements House Safety & Behavioral: Feels Safe in Current Yes Environment Been Physically Hurt or No Threatened By a Person Suicidal Ideation Description None Suicide Plan Description No Plan Tobacco & Substance use: Smoking Status Former smoker alcohol intake frequency 3 or more drinks per day Substance Use Type does not use Meds Home Medications and Allergies Home Medications Medication Instructions Recorded Confirmed Type Vitamins 1 dose PO DAILY 01/26/19 08/15/20 History losartan 50 mg PO DAILY 01/26/19 08/15/20 History pantoprazole 40 mg PO BID #120 tab 02/03/19 08/15/20 Rx gentamicin 1 applic TOPICAL PRN PRN 08/15/20 08/15/20 History Allergies Allergy/AdvReac Type Severity Reaction Status Date / Time Penicillins [PENICILLINS] Allergy Unknown uncertain Verified 08/15/20 12:34 Review of Systems Review of Systems ROS: Yes All systems reviewed with the patient and are negative except as otherwise documented Exam Vital Signs (past 8 hours): - 08/15/20 12:34 08/15/20 12:51 08/15/20 13:00 Temperature 99.5 F Pulse Rate 112 H 114 H 74 Respiratory Rate 14 Blood Pressure 183/100 H Pulse Oximetry 96 94 85 L 08/15/20 13:30 08/15/20 14:00 08/15/20 14:23 Temperature Pulse Rate 106 H 100 H Respiratory Rate Blood Pressure 136/82 Pulse Oximetry 95 95 08/15/20 14:37 08/15/20 15:50 Temperature 99.6 F 100.6 F H Pulse Rate 95 H 88 Respiratory Rate 16 20 Blood Pressure 174/88 H Pulse Oximetry 95 Oxygen Delivery Method Room Air Narrative Exam Narrative: Pleasant gentleman resting comfortably in no obvious distress HEENT: Normocephalic atraumatic, sclerae anicteric, extraocular muscles are intact, oropharynx is clear Lungs: Clear to auscultation Cardiac exam: Regular rate and rhythm normal S1-S2 Abdomen: Soft nontender nondistended without hepatosplenomegaly Extremities: Left lower extremity with erythema from the ankle up to the knee. The area is warm, mildly edematous, slightly tender to palpation. The no evidence of lymphangitic spread. But the area of cellulitis is circumferential around the entire left lower extremity Neuro exam,: Nonfocal Psychiatric exam: Patient is awake and alert, he responds appropriately, no confusion, no delusions, no hallucinations Objective Labs Result Diagrams: 08/15/20 13:03 08/15/20 13:03 Labs: Laboratory Results - last 24 hr 08/15/20 08/15/20 08/15/20 13:03 13:03 13:03 WBC 15.0 H RBC 4.37 L Hgb 14.6 Hct 42.3 MCV 96.8 MCH 33.5 MCHC 34.6 RDW 13.0 Plt Count 158 Neut % (Auto) 92.9 H Lymph % (Auto) 3.6 L [place] % (Auto) 3.1 Eos % (Auto) 0.0 L Baso % (Auto) 0.4 Neut # (Auto) 07217 H Lymph # (Auto) 500 L [place] # (Auto) 500 Eos # (Auto) 0 Baso # (Auto) 100 Sodium 132 L Potassium 3.5 Chloride 100 Carbon Dioxide 23 BUN 17 Creatinine 1.01 Estimated GFR > 60.0 BUN/Creatinine Ratio 16.8 Glucose 127 H Lactate Calcium 9.2 Total Bilirubin 1.1 AST 52 ALT 24 Alkaline Phosphatase 66 Total Protein 7.7 Albumin 4.3 Globulin 3.4 Albumin/Globulin Ratio 1.3 Lipase Procalcitonin 11.98 H COVID-19 PCR 08/15/20 08/15/20 08/15/20 13:03 13:03 13:03 WBC RBC Hgb Hct MCV MCH MCHC RDW Plt Count Neut % (Auto) Lymph % (Auto) [place] % (Auto) Eos % (Auto) Baso % (Auto) Neut # (Auto) Lymph # (Auto) [place] # (Auto) Eos # (Auto) Baso # (Auto) Sodium Potassium Chloride Carbon Dioxide BUN Creatinine Estimated GFR BUN/Creatinine Ratio Glucose Lactate 1.1 Calcium Total Bilirubin AST ALT Alkaline Phosphatase Total Protein Albumin Globulin Albumin/Globulin Ratio Lipase 58 Procalcitonin COVID-19 PCR Negative Assessment & Plan Assessment & Plan narrative: 60-year-old male admitted to the hospital with left lower extremity cellulitis -patient presents with recurrent infection, last time treated in the hospital in January of 2019 -white count elevated at 15, lactate 1.1, procalcitonin elevated at 11 -agree with vancomycin, will continue will ask pharmacy to dose -continue IV hydration -leg elevation -monitor closely no evidence of fluctuance or abscess formation Hypertension -continue losartan History of GI bleed -continue protime Patient indicates he is a full code . His is his surrogate decision maker. Patient is admitted as an inpatient as it is anticipated he will be in the hospital for greater than 48 hours
[2020-08-15] MEDS: HYDROCODONE/ACET 5/325 TABLET 1 TAB PO (17:37)
[2020-08-15 17:38] LABS: Blood Urea Nitrogen 17 mg/dL (9-20); Carbon Dioxide 26 mmol/L (22-32); Chloride 99 mmol/L (98-107); Estimated Glomerular Filt Rate > 60.0 mL/min (>60); Glucose 125 mg/dL (80-110); HEMOLYSIS 16 (0-50); Potassium 3.6 mmol/L (3.4-5.1); Sodium 132 mmol/L (137-145)
[2020-08-15] MEDS: ACETAMINOPHEN 325 MG TABLET 650 MG PO ×2 (17:38→23:32)
[2020-08-15] MEDS: PANTOPRAZOLE 40 MG TABLET PO (21:22)
[2020-08-15] MEDS: DOCUSATE 100 MG CAPSULE PO (21:22)
[2020-08-15] MEDS: VANCOMYCIN 1,250 MG/250 ML PIGGYBACK 250 MG IV (23:27)
[2020-08-16] VITALS (10 sets, daily range): BP systolic 132–161; BP diastolic 78–96; PULSE 80–102; RESP 15–20; TEMP 36.9–39.3; O2SAT 94–98
[2020-08-16 05:18] LABS: Hematocrit 38.5 % (41-53); Hemoglobin 13.1 g/dL (13.5-17.5); Mean Corpuscular Hemoglobin 33.3 PG (26-34); Mean Corpuscular Volume 98.1 fL (80-100); Platelet Count 130 X10^3/uL (150-400); Red Blood Cell Count 3.93 X10^6/uL (4.5-5.9); Red Cell Distribution Width 13.2 % (11.6-14.8)
[2020-08-16 05:19] LABS: Add Manual Diff / Slide Review YES
[2020-08-16 05:38] LABS: Procalcitonin 7.84 ng/mL (<0.5)
[2020-08-16] MEDS: ACETAMINOPHEN 325 MG TABLET 650 MG PO (05:47)
[2020-08-16] MEDS: SODIUM CHLORIDE 0.9% 1,000 ML 125 ML IV ×2 (05:49→15:17)
[2020-08-16 07:24] LABS: Dohle Bodies 2+; Neutrophils Absolute Manual 12480 /uL (3000-5900); Total Cells Counted 100; Toxic Granulation Present
[2020-08-16] MEDS: DOCUSATE 100 MG CAPSULE PO (09:05)
[2020-08-16] MEDS: LOSARTAN 50 MG TABLET PO (09:05)
[2020-08-16] MEDS: PANTOPRAZOLE 40 MG TABLET PO (09:05)
[2020-08-16] MEDS: ENOXAPARIN 40 MG/0.4 ML SYRINGE SUBCUT (09:05)
[2020-08-16] MEDS: VANCOMYCIN 1,250 MG/250 ML PIGGYBACK 250 MG IV ×2 (12:15→23:45)
--- NOTE | 2020-08-16 12:49 | CM.DANOTE ---
Addendum entered by Belen Johnson LPN 08/16/20 13:00: Payer: confirmed: [facility] Addendum entered by Belen Johnson LPN 08/16/20 12:59: in 2019. Pt is currently on IV antibiotics and Dr. Bedoya anticipates he will be here for a couple of days. P: home when stable for same is expected. DCP team will be following. Original Note: Discharge Planning/Care Management DCP: assessment: Case received, EMR reviewed and met with pt. Introduced self and role. Pt confirms that he is still working at [employer] and his PCP is the [facility] physician: Dr. Dori Macias. Is functionally independent in community and lives with his Nanda in [place]. He says he has had no problem with his L Leg since he recovered in 21 CM Discharge Assessment Start: 08/16/20 12:47 Freq: Status: Active Protocol: Document 08/16/20 12:48 ITV (Rec: 08/16/20 12:49 ITV [id number]) Discharge Planning Assessment Advance Directives? No History Provided By Patient,Medical Record Has Patient been admitted in last 30 No days? Comment last here in 2019 with similar presentation: same leg Prior Living Arrangements House Household Members spouse Independent with ADL's Yes Is patient alert and oriented? Yes Review Status In Process
--- NOTE | 2020-08-16 13:50 | PC.NURSE ---
Day Shift- Pt A&OX4, able to make his needs known using call light. States minimal pain to LLE, did not want PRN medication. LLE elevated on 3 pillows, LLE redness has not exceed past previously marked lines, does have some receding from upper marked line. warm to touch, edematous, tight and then wrinkled around LLE inner chronic wound. Encouraged pt to get OOB and be in chair, pt OOB for lunch time. No further voiced concerns. Call light within reach.
--- NOTE | 2020-08-16 17:03 | PM.PN.1 ---
Subjective Subjective Date Patient Seen: 08/16/20 Interval history: Patient continues to have fevers. Right lower extremity has improved however he continues to have significant erythema warmth and swelling of the right lower extremity. He has minimal pain. Patient denies any nausea vomiting or diarrhea Exam Vital Signs (past 8 hours): - 08/16/20 09:05 08/16/20 11:57 08/16/20 15:20 Temperature 98.9 F 99.9 F H Pulse Rate 99 H 102 H 93 H Respiratory Rate 15 20 Blood Pressure 152/87 H 138/79 161/95 H Pulse Oximetry 96 97 Oxygen Delivery Method Room Air Oxygen Flow Rate 0 Const General: cooperative, healthy appearing and comfortable Orientation: alert, awake and oriented x3 HENMT Head: normal to inspection, normocephalic and atraumatic Ears: hearing grossly normal bilaterally Nose: external nose normal Face and sinus: normal facial exam Mouth: oral mucosae normal Resp Effort & Inspection: normal respiratory effort and able to speak in complete sentences Auscultation: clear to auscultation bilaterally Cardio Palpation: normal PMI Rate: regular rate Rhythm: regular rhythm Heart Sounds: S1 normal and S2 normal GI Inspection: normal to inspection Palpation: soft and no hepatosplenomegaly Percussion: normal to percussion Auscultation: normal bowel sounds Skin Other: Left lower extremity with decreasing erythema, warmth, mild tenderness, still with circumscribed area of cellulitis involving the anterior posterior portion of the left lower extremity Objective Labs Result Diagrams: 08/16/20 04:50 08/15/20 17:05 Labs: Laboratory Results - last 24 hr 08/15/20 08/16/20 08/16/20 17:05 04:50 04:50 WBC 13.0 H RBC 3.93 L Hgb 13.1 L Hct 38.5 L MCV 98.1 MCH 33.3 MCHC 34.0 RDW 13.2 Plt Count 130 L Neut % (Auto) Not Reportable Lymph % (Auto) Not Reportable [place] % (Auto) Not Reportable Eos % (Auto) Not Reportable Baso % (Auto) Not Reportable Lymph # (Auto) Not Reportable [place] # (Auto) Not Reportable Baso # (Auto) Not Reportable Total Counted 100 Seg Neutrophils % 71.0 H Band Neutrophils % 25.0 H Lymphocytes % (Manual) 4.0 L Neutrophils # (Manual) 43776 H Toxic Granulation Present H Dohle Bodies 2+ H RBC Morphology See below Sodium 132 L Potassium 3.6 Chloride 99 Carbon Dioxide 26 BUN 17 Creatinine 1.00 Estimated GFR > 60.0 BUN/Creatinine Ratio 17.0 Glucose 125 H Calcium 9.0 Procalcitonin 7.84 H PFSH Medical History History of prostate cancer Hypertension Surgical History History of left inguinal hernia repair History of umbilical hernia repair Family History Mother No known health problems Father No known health problems Social History household members: spouse Smoking Status: Former smoker Assessment & Plan Assessment & Plan narrative: sessment & Plan narrative: 60-year-old male admitted to the hospital with left lower extremity cellulitis -patient presents with recurrent infection, last time treated in the hospital in January of 2019 -white count elevated at 15, lactate 1.1, procalcitonin elevated at 11 -agree with vancomycin, will continue will ask pharmacy to dose -continue IV hydration -leg elevation -monitor closely no evidence of fluctuance or abscess formation -overall cellulitis appears to be improving, procalcitonin improved today. Will continue IV vancomycin at this time -continue leg elevation Hypertension -continue losartan History of GI bleed -continue protime Anticipate discharge home in 1-2 days
[2020-08-17] VITALS (7 sets, daily range): BP systolic 143–164; BP diastolic 90–98; PULSE 80–99; RESP 13–20; TEMP 36.6–37.2; O2SAT 96–98
[2020-08-17 05:57] LABS: Procalcitonin 4.92 ng/mL (<0.5)
[2020-08-17] MEDS: PANTOPRAZOLE 40 MG TABLET PO ×2 (06:24→21:17)
[2020-08-17] MEDS: SODIUM CHLORIDE 0.9% 1,000 ML 125 ML IV (06:53)
[2020-08-17] MEDS: LOSARTAN 50 MG TABLET PO (09:00)
[2020-08-17] MEDS: ENOXAPARIN 40 MG/0.4 ML SYRINGE SUBCUT (09:00)
--- NOTE | 2020-08-17 10:30 | PC.NURSE ---
Patients l.lower leg with redness, warmth and erythema. There is also a small wound to serrano that is slightly open with a brownish color. There is no sloughing or drainage, patient states that this is chronic wound and he had cellulitis in the same area about 1.5 years ago. He has been heplocked and he is taking a shower now. He will have a trough drawn at 1130 and the approriate dose of vanco will be given.
--- NOTE | 2020-08-17 10:32 | CM.DPC ---
DCP Cont: Discussed patient during team rounds. Dr. Bedoya indicated that his lower extremity notes decreased redness. She anticipates another day here with IV antibiotics, and hopeful that patient can discharge tomorrow on oral antibiotics. P: DCP to continue to follow. Patient should be able to discharge on oral antibiotics, most likely, tomorrow. Lea Castaneda RN/[employer]
[2020-08-17 12:36] LABS: Vancomycin Trough 6.5 ug/mL (10-20)
[2020-08-17] MEDS: VANCOMYCIN TROUGH 1 REQUEST MISC (13:12)
[2020-08-17] MEDS: VANCOMYCIN 1,250 MG/250 ML PIGGYBACK 250 MG IV ×2 (13:13→21:16)
--- NOTE | 2020-08-17 14:08 | PM.PN.1 ---
Subjective Subjective Date Patient Seen: 08/17/20 Interval history: The patient is a 60-year-old male admitted to the hospital for left lower extremity cellulitis. He continues to have induration redness and warmth of the left lower leg. It however the cellulitis is improved by 50% since yesterday. He is tolerating the antibiotics well. He is having no nausea vomiting or diarrhea. Exam Vital Signs (past 8 hours): - 08/17/20 07:26 08/17/20 11:36 Temperature 98.7 F 98.4 F Pulse Rate 80 90 Respiratory Rate 13 15 Blood Pressure 160/97 H 143/98 H Pulse Oximetry 97 96 Oxygen Delivery Method Room Air Oxygen Flow Rate 0 Narrative Exam Narrative: Pleasant gentleman resting comfortably in no distress Lungs: Clear to auscultation Cardiac exam: Regular rate and rhythm normal S1-S2 Abdomen: Soft and nontender Extremities: Left leg, decreasing erythema, leg is warm, no edema, overall cellulitis improving I 50%. Objective Labs Result Diagrams: 08/16/20 04:50 08/15/20 17:05 Labs: Laboratory Results - last 24 hr 08/17/20 08/17/20 05:00 12:05 Procalcitonin 4.92 H Vancomycin Trough 6.5 L PFSH Medical History History of prostate cancer Hypertension Surgical History History of left inguinal hernia repair History of umbilical hernia repair Family History Mother No known health problems Father No known health problems Social History household members: spouse Smoking Status: Former smoker Assessment & Plan Assessment & Plan narrative: 60-year-old male admitted to the hospital with left lower extremity cellulitis -overall infection is improving -procalcitonin decreased from 11, to 7, to 4.9 today -WBC down to 13 -clinically the left leg appears to be improved -will repeat white count in the morning -continue vancomycin for now Hypertension -continue losartan GERD -continue proton Anticipate 1-2 more days of IV antibiotic then switch to oral and discharged home
--- NOTE | 2020-08-17 23:46 | PC.NURSE ---
Addendum entered by Geni Robins R.N. 08/18/20 06:34: Complains of 5/10 headache; requested/medicated with Tylenol. Original Note: Patient is alert and oriented. Breath sounds CTA with RA sat of 97%. HRR. BP continuing to trend high and is currently 163/97. Denies nausea. BT present and abdomen is soft. Denies dysuria, frequency or urgency with urination. Independent with mobility; denies weakness or unsteadiness and uses no AD. Left LE is erythemic, edematous and warm to touch but within previous drawn markings. Has an abraised area toward medial aspect of lower leg which he states is draining but currently appears dry. Left LE is elevated on pillows. Denies pain. Refusing to wear SCD's so reminded to ankle wave. Fall risk score is low.
[2020-08-18] VITALS (7 sets, daily range): BP systolic 137–157; BP diastolic 79–96; PULSE 75–88; RESP 16–18; TEMP 36.3–37; O2SAT 95–98
[2020-08-18] MEDS: VANCOMYCIN 1,250 MG/250 ML PIGGYBACK 250 MG IV ×3 (04:43→20:58)
[2020-08-18] MEDS: SODIUM CHLORIDE 0.9% FLUSH 10 ML IV ×3 (04:43→20:59)
[2020-08-18 05:41] LABS: Add Manual Diff / Slide Review NO; Basophils Percent Auto 0.7 % (0-2); Eosinophils Percent Auto 1.3 % (2-4); Lymphocytes Percent Auto 17.8 % (25-40); Monocytes Percent Auto 7.9 % (3-14); Neutrophils Absolute Auto 5800 /uL (1500-7000); Neutrophils Percent Auto 72.3 % (50-75)
[2020-08-18 05:56] LABS: Estimated Glomerular Filt Rate > 60.0 mL/min (>60)
[2020-08-18 06:09] LABS: Procalcitonin 2.52 ng/mL (<0.5)
[2020-08-18] MEDS: PANTOPRAZOLE 40 MG TABLET PO (06:32)
[2020-08-18] MEDS: ACETAMINOPHEN 325 MG TABLET 650 MG PO (06:33)
[2020-08-18] MEDS: ENOXAPARIN 40 MG/0.4 ML SYRINGE SUBCUT (08:48)
[2020-08-18] MEDS: LOSARTAN 50 MG TABLET PO (08:48)
--- NOTE | 2020-08-18 09:21 | CM.DPC ---
DCP Cont: Checked in with patient. He was laying on his bed, alert and oriented. Patient confirmed that he resides in [place] with his spouse, Nadna. He is independent at baseline, and confirmed that he is employed at [employer]. Patient does not know how he obtained cellulitis. Patient stated that hospitalist has seen him and indicated that he will he here another day with plan of discharge tomorrow on oral antibiotics. Will discuss further at team rounds to confirm. P: DCP to continue to follow. Patient should most likely discharge tomorrow on oral antibiotics if stable. Lea Castaneda RN/[employer]
--- NOTE | 2020-08-18 10:31 | P.PN_ITS ---
Subjective Subjective Date Patient Seen: 08/18/20 Time Patient Seen: 10:31 Interval history: The patient is a 60-year-old male admitted to the hospital for left lower extremity cellulitis. He continues to have induration redness and warmth of the left lower leg however it is continuing to slowly improve. 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 Denies overnight fever, chills, nausea, vomiting. Exam Vital Signs (past 8 hours): - 08/18/20 04:10 08/18/20 08:00 08/18/20 08:48 Temperature 98.2 F 97.7 F Pulse Rate 88 81 Respiratory Rate 18 17 Blood Pressure 144/96 H 157/94 H 157/94 H Pulse Oximetry 95 98 Oxygen Delivery Method Room Air Oxygen Flow Rate 0 Narrative Exam Narrative: Gen: Pleasant gentleman resting comfortably in no distress Lungs: Clear to auscultation bilaterally no wheezes, rhonchi, rales. Cardiac exam: Regular rate and rhythm normal S1-S2 no m/r/g. Abdomen: Soft and nontender, non distended. Extremities: Left leg, decreasing erythema compared to prior demarcations, leg is warm, no edema, overall cellulitis improving. Small skin breakdown and open area without induration or drainage near the center of his cellulitis on the left lateral aspect of his serrano. Objective Labs Result Diagrams: 08/18/20 05:10 Labs: Laboratory Results - last 24 hr 08/17/20 08/18/20 08/18/20 12:05 05:10 05:10 WBC 8.0 Neut % (Auto) 72.3 Lymph % (Auto) 17.8 L [place] % (Auto) 7.9 Eos % (Auto) 1.3 L Baso % (Auto) 0.7 Neut # (Auto) 5800 Creatinine 0.77 Estimated GFR > 60.0 Procalcitonin Vancomycin Trough 6.5 L 08/18/20 05:10 WBC Neut % (Auto) Lymph % (Auto) [place] % (Auto) Eos % (Auto) Baso % (Auto) Neut # (Auto) Creatinine Estimated GFR Procalcitonin 2.52 H Vancomycin Trough [facility] Medical History History of prostate cancer Hypertension Surgical History History of left inguinal hernia repair History of umbilical hernia repair Family History Mother No known health problems Father No known health problems Social History household members: spouse Smoking Status: Former smoker Assessment & Plan Assessment & Plan narrative: 60-year-old male admitted to the hospital with left lower extremity cellulitis, improving on IV antibiotic thearpy. 1. LLE cellulitis, acute, present on admission, improving. -overall infection is improving on vancomycin, but still with a significant amount of redness, swelling. -procalcitonin continues to decline from 11 to now 2.5 -leukocytosis now resolved -anticipate additional day of IV antibiotics today, if continued improvement tomorrow despite low trough levels will discharge home with continued oral antibiotics with coverage for MRSA, likely doxycycline. 2. Hypertension -continue losartan 3. GERD -continue home PPI Dispo: Anticipate 1-2 more days of IV antibiotic then switch to oral and discharged home Code: Full DVT: Lovenox daily. COVID-19 COVID-19 status: Negative
[2020-08-18 13:32] LABS: Vancomycin Trough 11.1 ug/mL (10-20)
[2020-08-18] MEDS: VANCOMYCIN TROUGH 1 REQUEST MISC (14:04)
[2020-08-19 03:00] VITALS: BP 155/100; PULSE 72; RESP 18; TEMP 36.3; O2SAT 98
[2020-08-19 03:22] VITALS: BP 138/94
[2020-08-19 03:25] VITALS: BP 145/90
[2020-08-19] MEDS: VANCOMYCIN 1,250 MG/250 ML PIGGYBACK 250 MG IV (04:29)
[2020-08-19 05:40] LABS: BUN Creatinine Ratio 21.3 (6-22); Blood Urea Nitrogen 17 mg/dL (9-20); Calcium 9.2 mg/dL (8.4-10.2); Carbon Dioxide 28 mmol/L (22-32); Estimated Glomerular Filt Rate > 60.0 mL/min (>60); Glucose 120 mg/dL (80-110); HEMOLYSIS < 15 (0-50)
[2020-08-19 05:56] LABS: Procalcitonin 1.27 ng/mL (<0.5)
[2020-08-19 05:57] LABS: Chloride 107 mmol/L (98-107); Potassium 4.6 mmol/L (3.4-5.1); Sodium 138 mmol/L (137-145)
[2020-08-19] MEDS: PANTOPRAZOLE 40 MG TABLET PO (06:27)
[2020-08-19 07:50] VITALS: BP 152/105; PULSE 73; RESP 16; TEMP 36.4; O2SAT 98
[2020-08-19 07:51] VITALS: BP 147/90; PULSE 73
--- NOTE | 2020-08-19 08:49 | CM.DPC ---
DCP: continued: EMR reviewed, conferred with Dr. Sherman who confirmed he anticipates pt will d/c today on oral antibiotics and met with pt. He is found up at sink doing morning hygiene tasks. Pt confirms he is expecting to be able to go home today and his will be be picking him up. LAVERN Uribe is updated on plan. Home today expected.
--- NOTE | 2020-08-19 09:49 | PM.DS.1 ---
History of Present Illness History of Present Illness Date Patient Seen: 08/19/20 Time Patient Seen: 09:49 Chief complaint: Cellulitis Left Leg Narrative: As per Dr. Bedoya, Patient is a 60-year-old male with a history of hypertension, upper GI bleed, obesity, with a history of left lower extremity cellulitis previously who underwent debridement. The patient went to bed normal last night. He woke up this morning with swelling redness and warmth of the left lower extremity. He was sent in by his primary care provider to the emergency room for evaluation. In the emergency room he was diagnosed with left lower extremity cellulitis. [place] [address]. His lactate was normal at 1.1. The patient had an elevated procalcitonin of 11. He is admitted to the hospital at this time for inpatient treatment of cellulitis. Patient was hospitalized in January of 2019. He had left lower extremity cellulitis. He initially was treated with vancomycin and Flagyl in ultimately discharged home on Zyvox. He has had no further episodes since 2019. Discharge Providers Provider Date of admission: 08/15/20 14:22 Discharge Date: 08/19/20 Primary care physician: Dori Macias MD Discharge provider: Irving Sherman DO Summary Hospital Course Discharge Diagnosis: 1. LLE cellulitis, acute, present on admission, improving. 2. Hypertension, chronic 3. GERD, chronic Hospital Course: The patient is a 60-year-old male with a past medical history of hypertension who was admitted to the hospital with left lower extremity cellulitis. He was started on vancomycin with continued improvement. He still has some chronic skin changes of his left lower extremity but his cellulitis had markedly improved. On the day of discharge he was without pain. Initially patient had a leukocytosis and a procalcitonin of 11, both of these improved with initiation of vancomycin. He was discharged with outpatient coverage for MRSA with doxycycline, and will complete therapy at home. He was mildly hypertensive, and was continued on his home losartan. Recommend follow-up with PCP for further monitoring of his left leg as well as a blood pressure check. Exam Vital Signs (past 8 hours): - 08/19/20 03:00 08/19/20 03:22 08/19/20 03:25 Temperature 97.4 F L Pulse Rate 72 Respiratory Rate 18 Blood Pressure 155/100 H 138/94 H 145/90 H Pulse Oximetry 98 08/19/20 07:50 08/19/20 07:51 Temperature 97.5 F L Pulse Rate 73 73 Respiratory Rate 16 Blood Pressure 152/105 H 147/90 H Pulse Oximetry 98 Oxygen Delivery Method Room Air Oxygen Flow Rate 0 Narrative Exam Narrative: Gen: Pleasant gentleman resting comfortably in no distress Lungs: Clear to auscultation bilaterally no wheezes, rhonchi, rales. Cardiac exam: Regular rate and rhythm normal S1-S2 no m/r/g. Abdomen: Soft and nontender, non distended. Extremities: Left leg, decreasing erythema compared to prior demarcations, leg is warm, no edema, overall cellulitis improving. Small skin breakdown and open area without induration or drainage near the center of his cellulitis on the left lateral aspect of his serrano. Ecchymotic changes and skin darkening / thickening. Objective Labs Result Diagrams: 08/18/20 05:10 08/19/20 05:20 Labs: Laboratory Results - last 24 hr 08/18/20 08/19/20 08/19/20 12:55 05:20 05:20 Sodium 138 Potassium 4.6 Chloride 107 Carbon Dioxide 28 BUN 17 Creatinine 0.80 Estimated GFR > 60.0 BUN/Creatinine Ratio 21.3 Glucose 120 H Calcium 9.2 Procalcitonin 1.27 H Vancomycin Trough 11.1 PFSH Medical History History of prostate cancer Hypertension Surgical History History of left inguinal hernia repair History of umbilical hernia repair Family History Mother No known health problems Father No known health problems Social History household members: spouse Smoking Status: Former smoker Discharge Plan Discharge Plan Patient Disposition: Home Provider Discharge Comment: You were admitted to the hospital with swelling of your left leg called cellulitis. This improved with antibiotics and you should complete therapy at home. Please follow up with your PCP next week. Recommend you rest at home and not work until 08/22/20. Discharge orders & Medications Prescriptions: New doxycycline hyclate 100 mg tablet 100 mg PO BID 10 Days Qty: 20 RF: 0 Continued losartan 50 mg Tablet 50 mg PO DAILY RF: 0 Vitamins 1 dose PO DAILY RF: 0 pantoprazole 40 mg Tablet,Delayed Release (Dr/Ec) 40 mg PO BID Qty: 120 RF: 0 gentamicin 0.1 % ointment 1 applic TOPICAL PRN PRN (Reason: Rash) RF: 0 Follow up/Referrals: Dori Macias MD [Primary Care Provider] - Diet/Activity/Treatments Diet: Diet as Tolerated Activity: As tolerated Visit Report/Discharge Packet Instructions: DI for Cellulitis -- Adult, Doxycycline (By mouth) Discharge Data Primary Care Provider: Dori Macias
[2020-08-19] MEDS: LOSARTAN 50 MG TABLET PO (09:50)
--- NOTE | 2020-08-19 11:10 | PC.NURSE ---
Discharge: Feels ready to go home. Is up on lt leg, able to amb, leg is tender but denies need for any pain medication. Tolerates diet and is voiding w/out problems. Denies any concerns. Reviewed d/c packet, rx has been esent. He is aware. Questions answered. Pt d/c home via auto w/spouse.
== END 2020-08-19 10:45 | disposition home or self-care (01) | DRG 603 ==
LOC: ED 13:49 → AC 14:23
PROVIDERS: Internal Medicine; Admitting Provider Internal Medicine; Emergency Provider Emergency Medicine; PCP Family Medicine; Referring Provider Emergency Medicine; Visit Provider Internal Medicine
DX: L03.116 Cellulitis of left lower limb (principal); E66.9 Obesity, unspecified; Z68.32 Body mass index [BMI] 32.0-32.9, adult; Z85.46 Personal history of malignant neoplasm of prostate; I10 Essential (primary) hypertension; K21.9 Gastro-esophageal reflux disease without esophagitis; Z11.59 Encounter for screening for other viral diseases
CPT/HCPCS: 36415; 80048; 80053; 80202; 82565; 83605; 83690; 84145; 85007; 85025; 87040; 87635; 93005; 93010; 93971; 96360; 99282; 99284; J1650

== ENCOUNTER → 2021-02-27 11:44 | Outpatient (ROUT) | payer OTHER, SELFPAY ==
[2020-08-15 15:28] VITALS: BMI 32.8
[2021-02-27 14:15] LABS: COVID19 -Nasal RAPID POSITIVE (Negative)
== END ==
PROVIDERS: PCP Family Medicine; Visit Provider Family Medicine
DX: U07.1 COVID-19 (principal)
CPT/HCPCS: 87635

== ENCOUNTER → 2023-12-06 09:40 | Outpatient (CLI) | payer OTHER, SELFPAY ==
[2020-08-15 15:28] VITALS: BMI 32.8
--- NOTE | 2023-12-06 09:48 | DI.RAD.S_ITS ---
PROCEDURE: XR HIP W PEL IF DONE LT 2V INDICATIONS: lt hip pain TECHNIQUE: AP pelvis with lateral view(s) of the left hip(s). COMPARISON: None. FINDINGS: Bones: No fractures or dislocations. Pelvic ring appears intact. No suspicious bony lesions. Mild degenerative changes of the left hip. Soft tissues: The visualized bowel gas pattern is normal. No suspicious soft tissue calcifications. Multiple surgical clips noted in the lower midline pelvis. IMPRESSION: No acute bony abnormality. Mild left hip degenerative change. Dictated by: Sunil Palafox M.D. on 12/06/2023 at 15:57 Approved by: Sunil Palafox M.D. on 12/06/2023 at 15:58
== END ==
PROVIDERS: PCP Family Medicine; Referring Provider Family Medicine; Visit Provider Family Medicine
DX: S79.912A Unspecified injury of left hip, initial encounter (principal); M25.552 Pain in left hip; X58.XXXA Exposure to other specified factors, initial encounter
CPT/HCPCS: 73502